=== PATIENT | male | born 1950 | race Caucasian/White ===

== ENCOUNTER 2016-08-09 13:46 | Outpatient (RCR) | payer MEDICARE ==
--- OUTSIDE RECORDS SUMMARY | 2016-06-14 10:06 | XMS REPORT | Continuity of Care Document ---
Author Author [facility] Organization [facility] Address Unknown Phone Unavailable Care Team Providers Care Tray Drier Name Role Phone HILARY SULLIVAN MD PCP Insurance Providers Payer Name Policy Number Subscriber Name Relationship Wps Medicare [id number] Jocelyn Denny 18 Self / Same As Patient Blue Cross [facility] Supp [id number] Jocelyn Denny 20 Self / Same As Patient Advance Directives Directive Response Recorded Date/Time Advance Directives No 07/01/14 8:51am Organ Donor No 07/01/14 8:51am Resuscitation Status Full Code 07/01/14 8:51am Problems Medical Problems Problem Onset Date Status Acute myocardial infarction of anterolateral wall Unknown Active Bronchitis Unknown Active Medications Medication Dose Route Sig Days/Qty Instructions Order Date Discontinued Date Status Lovastatin (Mevacor) 1 Each PO DAILY WITH SUPPER 1 Qty 02/25/14 Discontinued Diltiazem HCl 30 Mg PO THREE TIMES A DAY 1 Qty 02/25/14 02/27/14 Discontinued Glipizide (Glucotrol) 1 Each PO DAILY 1 Qty 02/25/14 Active Metformin HCl (Glucophage) 1 Each PO TWICE A DAY WITH MEALS 1 Qty 02/25 Active Fish Oil 1,000 Mg PO THREE TIMES A DAY 1 Qt02/25/14 Active Atorvastatin Calcium 80 Mg PO BEDTIME 30 Qty 02/27/14 Active Aspirin 81 Mg PO DAILY 30 Qty 02/27/14 Active Clopidogrel Bisulfate 75 Mg PO DAILY 90 Days 02/27/14 Active Levofloxacin 500 Mg PO DAILY@11 5 Days 02/27/14 07/01/14 Discontinued Metoprolol Tartrate 25 Mg PO TWICE A DAY 90 Days 02/27/14 Active Metoprolol Tartrate (Lopressor) 50 Mg PO TWICE A DAY 90 Days 02/27/14 Active Ramipril 20 Mg PO DAILY 90 Days 02/27/14 Active Social History Social History Problem Response Recorded Date/Time Alcohol Use Denies Use 02/26/2014 1:45am Recreational Drug Use No 02/26/2014 1:45am Recent Foreign Travel No 02/26/2014 1:45am Smoking Status Current Everyday Smoker 07/01/2014 8:50am Query Response Start Date Stop Date Smoking Status Current Everyday Smoker Hospital Discharge Instructions No hospital discharge instructions. Plan of Care No plan of care. Functional Status Query Response Date Recorded Patient Orientation Person Place Time Situation July 01, 2014 4:31pm Allergies, Adverse Reactions, Alerts Allergen Type Severity Reaction Status Last Updated No Known Drug Allergies Active 02/25/14 Immunizations Name Given Type Date of Pneumonia Vaccine 02/25/13 Historical Date of Influenza Vaccine 05/06/14 Historical Vital Signs Acute Vital Signs Vital Response Date/Time Temperature (Fahrenheit) 97.5 degrees F (97.6 - 99.5) Temperature (Calculated Celsius) 36.93034 degrees C (36.4 - 37.5) Temperature Source Tympanic Pulse Rate (adult) 74 bpm (60 - 90) Respiratory Rate 16 bpm (12 - 24) O2 Sat by Pulse Oximetry 94 % (88 - 100) Blood Pressure 148/70 mm Hg Pain Pain Intensity 0 Height (Feet) 5 feet Height (Inches) 7.50 inches Height (Calculated Centimeters) 171.309292 cm Weight (Pounds) 197 pounds Weight (Ounces) 0.0 oz Weight (Calculated Grams) 10601.698 gm Weight (Calculated Kilograms) 89.652005 kilograms Height 5 ft 7.5 in Weight 197 lb Body Mass Index 30.4 kg/m^2 Results Laboratory Results Test Name Result Units Flags Reference Collection Date/Time Result Date/ Time Comments Sodium Level 141 MMOL/L 135-145 06/23/2014 2:38pm 06/23/2014 2:59pm Potassium Level 4.0 MMOL/L 3.6-5.0 06/23/2014 2:38pm 06/23/2014 2:59pm Chloride Level 106 MMOL/L 98-107 06/23/2014 2:38pm 06/23/2014 2:59pm Carbon Dioxide Level 27 MMOL/L 21-32 06/23/2014 2:38pm 06/23/2014 2: 59pm Blood Urea Nitrogen 13 MG/DL 7-18 06/23/2014 2:38pm 06/23/2014 2:59pm Creatinine 0.95 MG/DL 0.60-1.30 06/23/2014 2:38pm 06/23/2014 2:59pm BUN/Creatinine Ratio 14 06/23/2014 2:38pm 06/23/2014 2:59pm Estimat Glomerular Filtration Rate > 60 06/23/2014 2:38pm 2013 2:59pm GFR INTERPRETIVE DATA UNITS FOR ESTIMATED GFR (eGFR): mL/min/1.73 M2 REFERENCE RANGE FOR ESTIMATED GFR (eGFR) eGFR NORMAL eGFR >60 MODERATELY DECREASED eGFR 30-59 SEVERLY DECREASED eGFR 15-29 KIDNEY FAILURE <15 (OR DIALYSIS) Glucose Level 75 MG/DL 70-105 06/23/2014 2:38pm 06/23/2014 2:59pm Calcium Level 9.0 MG/DL 8.5-10.1 06/23/2014 2:38pm 06/23/2014 2:59pm White Blood Count 6.6 10^3/uL 4.3-11.0 07/01/2014 7:59am 07/01/2014 8: 09am Red Blood Count 4.15 10^6/uL L 4.35-5.85 07/01/2014 7:59am 07/01/2014 8: 09am Hemoglobin 13.0 G/DL L 13.3-17.7 07/01/2014 7:59am 07/01/2014 8:09am Hematocrit 38 % L 40-54 07/01/2014 7:59am 07/01/2014 8:09am Mean Corpuscular Volume 91 FL 80-99 07/01/2014 7:59am 07/01/2014 8: 09am Mean Corpuscular Hemoglobin 31 PG 25-34 07/01/2014 7:59am 07/01/2014 8: 09am Mean Corpuscular Hemoglobin Concent 35 G/DL 32-36 07/01/2014 7:59am 8:09am Red Cell Distribution Width 12.4 % 10.0-14.5 07/01/2014 7:59am 2013 8:09am Platelet Count 196 10^3/uL 130-400 07/01/2014 7:59am 07/01/2014 8:09am Mean Platelet Volume 9.5 FL 7.4-10.4 07/01/2014 7:59am 07/01/2014 8: 09am Neutrophils (%) (Auto) 73 % 42-75 07/01/2014 7:59am 07/01/2014 8:09am Lymphocytes (%) (Auto) 16 % 12-44 07/01/2014 7:59am 07/01/2014 8:09am Monocytes (%) (Auto) 8 % 0-12 07/01/2014 7:59am 07/01/2014 8:09am Eosinophils (%) (Auto) 3 % 0-10 07/01/2014 7:59am 07/01/2014 8:09am Basophils (%) (Auto) 1 % 0-10 07/01/2014 7:59am 07/01/2014 8:09am Neutrophils # (Auto) 4.3 X 10^3 1.8-7.8 07/01/2014 7:59am 07/01/2014 8: 09am Lymphocytes # (Auto) 0.9 X 10^3 L 1.0-4.0 07/01/2014 7:59am 07/01/2014 8: 09am Monocytes # (Auto) 0.5 X 10^3 0.0-1.0 07/01/2014 7:59am 07/01/2014 8: 09am Eosinophils # (Auto) 0.2 10^3/uL 0.0-0.3 07/01/2014 7:59am 07/01/2014 8 :09am Basophils # (Auto) 0.0 10^3/uL 0.0-0.1 07/01/2014 7:59am 07/01/2014 8: 09am Prothrombin Time 12.0 SEC L 12.2-14.7 07/01/2014 7:59am 07/01/2014 8: 22am INR Comment 0.9 0.8-1.4 07/01/2014 7:59am 07/01/2014 8:22am INTERPRETIVE DATA SUGGESTED THERAPEUTIC RANGE FOR INR'S: VENOUS THROMBOSIS, PULMONARY EMBOLISM, OR PREVENTION OF SYSTEMIC EMBOLISM (EG. IN ATRIAL FIBRILLATION): 2.0 - 3.0 MECHANICAL PROSTHETIC HEART VALVES: 2.5 - 3.5* *NOTE: INR'S UP TO 4.5 MAY BE NECESSARY IN SELECTED GROUPS OF HIGH RISK PATIENTS. [employer] CONSENSUS CONFERENCE ON ANTITHROMBOTIC THERAPY (2000). Activated Partial Thromboplast Time 31 SEC 24-35 07/01/2014 7:59am 8:22am Procedures No known history of procedures. Encounters Encounter Location Date/Time Registered Surgical Day Care Via [facility] 07/01/14 7:42am Registered Clinic Via [facility] 06/23/14 2:27pm
[2016-06-14 10:40] LABS: BASOPHILS % (AUTO) 1 % (0-10); EOSINOPHILS # (AUTO) 0.1 10^3/uL (0.0-0.3); EOSINOPHILS % (AUTO) 2 % (0-10); LYMPHOCYTES # (AUTO) 0.6 X 10^3 (1.0-4.0); LYMPHOCYTES % (AUTO) 11 % (12-44); MEAN CORPUSCULAR HEMOGLOBIN 33 PG (25-34); MEAN CORPUSCULAR HGB CONC 35 G/DL (32-36); MEAN CORPUSCULAR VOLUME 96 FL (80-99); MEAN PLATELET VOLUME 9.3 FL (7.4-10.4); MONOCYTES # (AUTO) 0.4 X 10^3 (0.0-1.0); MONOCYTES % (AUTO) 9 % (0-12); NEUTROPHILS # (AUTO) 3.8 X 10^3 (1.8-7.8); NEUTROPHILS % (AUTO) 77 % (42-75); PLATELET COUNT 232 10^3/uL (130-400); RED BLOOD COUNT 3.66 10^6/uL (4.35-5.85); RED CELL DISTRIBUTION WIDTH 13.1 % (10.0-14.5)
[2016-06-14 11:06] LABS: ALANINE AMINOTRANSFERASE 18 U/L (0-55); ANION GAP 11 MMOL/L (5-14); ASPARTATE AMINO TRANSFERASE 12 U/L (5-34); BILIRUBIN,TOTAL 0.4 MG/DL (0.1-1.0); BLOOD UREA NITROGEN 13 MG/DL (7-18); BUN/CREATININE RATIO 13; CARBON DIOXIDE 18 MMOL/L (21-32); CHLORIDE 108 MMOL/L (98-107); CREATININE SERUM 0.99 MG/DL (0.60-1.30); GFR ESTIMATED > 60; GLUCOSE 250 MG/DL (70-105); LACTATE DEHYDROGENASE 154 U/L (125-220); POTASSIUM 4.1 MMOL/L (3.6-5.0); SODIUM 137 MMOL/L (135-145); TOTAL PROTEIN 6.4 G/DL (6.4-8.2)
[~2016-08-09] VITALS: Ht 171.4 cm; Wt 90.7 kg
[~2016-08-09 13:46] MED LIST: ACETAMINOPHEN 500 MG TAB (TYLENOL) CANCER CTR PO PRN; ALBU90AE IH; AMLO10TA2 PO; ASP81CT PO; ASPI-983 PO; ASPI-999 PO; ATOR80TA PO; ATOR80TA76 PO; CLOP75TA28 PO; CLPD75T PO; DILT30TA30 PO; DOCU-163 PO; DOCU250C11 PO; FISH OIL DR 1,1 EAC1 PO; FLU TRIvalent (5 YOA+) 2016-17 (CANCER CTR) 0.5 ML IM ONE; FLUT16SP22 NS; FLUT1BLS IH; GABA-488 PO; GLIP10TA13 PO; LOSA100T28 PO; LOVA20TA2 PO; LVF500T PO; METF-380 PO; METF1000 PO; METO100T2 PO; METO25TA2 PO; MONT10TA24 PO; MTP50T PO; NS IV 500 ML (CANCER CENTER) IV SCH; OMG1KC PO; POLY17PO6 PO; RMP5C PO; RT-ALBUINH IH; diphenhydrAMINE 25 MG TAB (BENADRYL) CANCER CENTER PO SCH; riTUXimab 500 MG, riTUXimab FOR IV INJ CONC 200 MG in NS (IVPB) CANCER CENTER ONLY 150 ML IV SCH
[2016-08-09 14:12] LABS: BASOPHILS % (AUTO) 1 % (0-10); EOSINOPHILS # (AUTO) 0.2 10^3/uL (0.0-0.3); EOSINOPHILS % (AUTO) 3 % (0-10); LYMPHOCYTES # (AUTO) 0.5 X 10^3 (1.0-4.0); LYMPHOCYTES % (AUTO) 9 % (12-44); MEAN CORPUSCULAR HEMOGLOBIN 34 PG (25-34); MEAN CORPUSCULAR HGB CONC 35 G/DL (32-36); MEAN CORPUSCULAR VOLUME 98 FL (80-99); MEAN PLATELET VOLUME 9.7 FL (7.4-10.4); MONOCYTES # (AUTO) 0.5 X 10^3 (0.0-1.0); MONOCYTES % (AUTO) 9 % (0-12); NEUTROPHILS # (AUTO) 4.3 X 10^3 (1.8-7.8); NEUTROPHILS % (AUTO) 78 % (42-75); PLATELET COUNT 189 10^3/uL (130-400); RED BLOOD COUNT 3.55 10^6/uL (4.35-5.85); RED CELL DISTRIBUTION WIDTH 13.6 % (10.0-14.5); WHITE BLOOD COUNT 5.4 10^3/uL (4.3-11.0)
[2016-08-09 14:44] LABS: ALANINE AMINOTRANSFERASE 22 U/L (0-55); ALBUMIN 4.1 G/DL (3.2-4.5); ANION GAP 11 MMOL/L (5-14); ASPARTATE AMINO TRANSFERASE 14 U/L (5-34); BILIRUBIN,TOTAL 0.6 MG/DL (0.1-1.0); BLOOD UREA NITROGEN 14 MG/DL (7-18); BUN/CREATININE RATIO 12; CARBON DIOXIDE 20 MMOL/L (21-32); CHLORIDE 108 MMOL/L (98-107); CREATININE SERUM 1.17 MG/DL (0.60-1.30); GFR ESTIMATED > 60; GLUCOSE 202 MG/DL (70-105); LACTATE DEHYDROGENASE 181 U/L (125-220); POTASSIUM 4.2 MMOL/L (3.6-5.0); SODIUM 139 MMOL/L (135-145); TOTAL PROTEIN 6.2 G/DL (6.4-8.2)
== END 2016-09-12 | disposition home or self-care (01) ==
LOC: ONC 13:46
PROVIDERS: ATTEND Internal Medicine Hematology & Oncology
DX: Z51.11 Encounter for antineoplastic chemotherapy (principal); C82.13 Follicular lymphoma grade II, intra-abdominal lymph nodes; R16.1 Splenomegaly, not elsewhere classified; F17.210 Nicotine dependence, cigarettes, uncomplicated; Z79.899 Other long term (current) drug therapy; Z23 Encounter for immunization
CPT/HCPCS: 36415; 80053; 83615; 85025; 90471; 96413; 96415; 99213

== ENCOUNTER → 2016-08-12 | Outpatient (CLI) | payer MEDICARE ==
[~2016-08-12] MED LIST changes: -ACETAMINOPHEN 500 MG TAB (TYLENOL) CANCER CTR PO PRN; -FLU TRIvalent (5 YOA+) 2016-17 (CANCER CTR) 0.5 ML IM ONE; -NS IV 500 ML (CANCER CENTER) IV SCH; -diphenhydrAMINE 25 MG TAB (BENADRYL) CANCER CENTER PO SCH; -riTUXimab 500 MG, riTUXimab FOR IV INJ CONC 200 MG in NS (IVPB) CANCER CENTER ONLY 150 ML IV SCH
--- OUTSIDE RECORDS SUMMARY | 2016-08-12 10:26 | XMS REPORT | Continuity of Care Document ---
Author Author [facility] Organization [facility] Address Unknown Phone Unavailable Care Team Providers Care Hydrogen Power Plant Engineer Name Role Phone HILARY SULLIVAN MD PCP Insurance Providers Payer Name Policy Number Subscriber Name Relationship Wps Medicare [id number] Jocelyn Denny 20 Self / Same As Patient Blue Cross [facility] Supp [id number] Jocelyn Denny 20 Self / Same As [...] F (97.6 - 99.5) Temperature (Calculated Celsius) 36.09946 degrees C (36.4 - 37.5) Temperature Source Tympanic Pulse Rate (adult) 74 bpm (60 - 90) Respiratory Rate 16 bpm (12 - 24) O2 Sat by Pulse Oximetry 94 % (88 - 100) Blood Pressure 148/70 mm Hg Pain Pain Intensity 0 Height (Feet) 5 feet Height (Inches) 7.50 inches Height (Calculated Centimeters) 171.020597 cm Weight (Pounds) 197 pounds Weight (Ounces) 0.0 oz Weight (Calculated Grams) 40369.698 gm Weight (Calculated Kilograms) 89.553457 kilograms Height 5 ft 7.5 in Weight [...] SELECTED GROUPS OF HIGH RISK PATIENTS. [employer] CONSENSUS CONFERENCE ON ANTITHROMBOTIC THERAPY (2000). Activated Partial Thromboplast Time 31 SEC 24-35 07/01/2014 7:59am 8:22am Procedures No known history of procedures. Encounters Encounter Location Date/Time Registered Surgical Day Care Via [facility] 07/01/14 7:42am Registered Clinic Via [facility] 06/23/14 2:27pm
--- NOTE | 2016-08-12 12:31 | Diagnostic Imaging Report ---
INDICATION: Dyspnea, followup pneumonia. DISCUSSION: Two views of the chest were obtained, comparison 07/12/2016. Probable right nipple shadow incidentally noted, stable. Stable normal heart size. Underlying COPD is again noted. No focal consolidation or pleural fluid. Old right rib fracture is stable. No acute osseous abnormality. IMPRESSION: 1. No acute cardiopulmonary process identified. Dictated by: Dictated on workstation # [id number]
== END ==
LOC: RAD 10:21
PROVIDERS: ATTEND Nurse Practitioner Family
DX: J30.9 Allergic rhinitis, unspecified (principal); J43.8 Other emphysema; G47.33 Obstructive sleep apnea (adult) (pediatric); G47.34 Idiopathic sleep related nonobstructive alveolar hypoventilation; Z72.0 Tobacco use; J18.9 Pneumonia, unspecified organism
CPT/HCPCS: 71020

== ENCOUNTER → 2016-09-13 | Outpatient (CLI) | payer MEDICARE ==
--- OUTSIDE RECORDS SUMMARY | 2016-09-13 13:31 | XMS REPORT | Continuity of Care Document ---
Author Author [facility] Organization [facility] Address Unknown Phone Unavailable Care Team Providers Care Investment Consultant Name Role Phone HILARY SULLIVAN MD PCP Insurance Providers Payer Name Policy Number Subscriber Name Relationship Wps Medicare [id number] Jocelyn Denny 20 Self / Same As Patient Blue Cross [facility] Supp [id number] Jocelyn Denny 20 Self / Same As [...] F (97.6 - 99.5) Temperature (Calculated Celsius) 36.43789 degrees C (36.4 - 37.5) Temperature Source Tympanic Pulse Rate (adult) 74 bpm (60 - 90) Respiratory Rate 16 bpm (12 - 24) O2 Sat by Pulse Oximetry 94 % (88 - 100) Blood Pressure 148/70 mm Hg Pain Pain Intensity 0 Height (Feet) 5 feet Height (Inches) 7.50 inches Height (Calculated Centimeters) 171.262407 cm Weight (Pounds) 197 pounds Weight (Ounces) 0.0 oz Weight (Calculated Grams) 79738.698 gm Weight (Calculated Kilograms) 89.759491 kilograms Height 5 ft 7.5 in Weight [...] SELECTED GROUPS OF HIGH RISK PATIENTS. [employer] [employer] CONSENSUS CONFERENCE ON ANTITHROMBOTIC THERAPY (2000). Activated Partial Thromboplast Time 31 SEC 24-35 07/01/2014 7:59am 8:22am Procedures No known history of procedures. Encounters Encounter Location Date/Time Registered Surgical Day Care [facility] 07/01/14 7:42am Registered Clinic Via [facility] 06/23/14 2:27pm
== END ==
LOC: RAD 13:27
PROVIDERS: ATTEND Internal Medicine Cardiovascular Disease
DX: I73.9 Peripheral vascular disease, unspecified (principal); M79.89 Other specified soft tissue disorders; I25.10 Atherosclerotic heart disease of native coronary artery without angina pectoris; G47.33 Obstructive sleep apnea (adult) (pediatric); R05 Cough; I65.23 Occlusion and stenosis of bilateral carotid arteries; I10 Essential (primary) hypertension; E78.4 Other hyperlipidemia
CPT/HCPCS: 93923

== ENCOUNTER → 2016-10-15 | Outpatient (CLI) | payer MEDICARE ==
--- OUTSIDE RECORDS SUMMARY | 2016-10-15 08:12 | XMS REPORT | Continuity of Care Document ---
Author Author [facility] Organization [facility] Address Unknown Phone Unavailable Care Team Providers Care Etl Application Developer Name Role Phone HILARY SULLIVAN MD PCP Insurance Providers Payer Name Policy Number Subscriber Name Relationship Wps Medicare [id number] Jocelyn Denny 20 Self / Same As Patient Blue Cross [facility] Supp [id number] Jocelyn Denny 20 Self / Same As [...] F (97.6 - 99.5) Temperature (Calculated Celsius) 36.35495 degrees C (36.4 - 37.5) Temperature Source Tympanic Pulse Rate (adult) 74 bpm (60 - 90) Respiratory Rate 16 bpm (12 - 24) O2 Sat by Pulse Oximetry 94 % (88 - 100) Blood Pressure 148/70 mm Hg Pain Pain Intensity 0 Height (Feet) 5 feet Height (Inches) 7.50 inches Height (Calculated Centimeters) 171.971294 cm Weight (Pounds) 197 pounds Weight (Ounces) 0.0 oz Weight (Calculated Grams) 48372.698 gm Weight (Calculated Kilograms) 89.379699 kilograms Height 5 ft 7.5 in Weight [...] SELECTED GROUPS OF HIGH RISK PATIENTS. [employer] [place] [employer] CONSENSUS CONFERENCE ON ANTITHROMBOTIC THERAPY (2000). Activated Partial Thromboplast Time 31 SEC 24-35 07/01/2014 7:59am 8:22am Procedures No known history of procedures. Encounters Encounter Location Date/Time Registered Surgical Day Care Via [facility] 07/01/14 7:42am Registered Clinic Via [facility] 06/23/14 2:27pm
== END ==
LOC: LAB 08:06
PROVIDERS: ATTEND Otolaryngology Otolaryngology/Facial Plastic Surgery
DX: J42 Unspecified chronic bronchitis (principal); R05 Cough
CPT/HCPCS: 87070; 87077; 87186; 87205

== ENCOUNTER → 2016-10-15 | Outpatient (CLI) | payer MEDICARE ==
--- OUTSIDE RECORDS SUMMARY | 2016-10-15 07:51 | XMS REPORT | Continuity of Care Document ---
Author Author [facility] Organization [facility] Address Unknown Phone Unavailable Care Team Providers Care Assembler Wet Wash Name Role Phone HILARY SULLIVAN MD PCP Insurance Providers Payer Name Policy Number Subscriber Name Relationship Wps Medicare [id number] Jocelyn Denny 20 Self / Same As Patient Blue Cross [facility] Supp [id number] Jocelyn Denny 20 Self / Same As [...] F (97.6 - 99.5) Temperature (Calculated Celsius) 36.89032 degrees C (36.4 - 37.5) Temperature Source Tympanic Pulse Rate (adult) 74 bpm (60 - 90) Respiratory Rate 16 bpm (12 - 24) O2 Sat by Pulse Oximetry 94 % (88 - 100) Blood Pressure 148/70 mm Hg Pain Pain Intensity 0 Height (Feet) 5 feet Height (Inches) 7.50 inches Height (Calculated Centimeters) 171.117686 cm Weight (Pounds) 197 pounds Weight (Ounces) 0.0 oz Weight (Calculated Grams) 20996.698 gm Weight (Calculated Kilograms) 89.523342 kilograms Height 5 ft 7.5 in Weight [...] SELECTED GROUPS OF HIGH RISK PATIENTS. [employer] [place] CONSENSUS CONFERENCE ON ANTITHROMBOTIC THERAPY (2000). Activated Partial Thromboplast Time 31 SEC 24-35 07/01/2014 7:59am 8:22am Procedures No known history of procedures. Encounters Encounter Location Date/Time Registered Surgical Day Care Via [facility] 07/01/14 7:42am Registered Clinic Via [facility] 06/23/14 2:27pm
[2016-10-15 08:24] LABS: ALANINE AMINOTRANSFERASE 14 U/L (0-55); ALBUMIN 3.6 G/DL (3.2-4.5); ANION GAP 12 MMOL/L (5-14); ASPARTATE AMINO TRANSFERASE 12 U/L (5-34); BILIRUBIN,TOTAL 0.6 MG/DL (0.1-1.0); BLOOD UREA NITROGEN 9 MG/DL (7-18); BUN/CREATININE RATIO 9; CALCIUM 8.7 MG/DL (8.5-10.1); CARBON DIOXIDE 23 MMOL/L (21-32); CHLORIDE 105 MMOL/L (98-107); CHOLESTEROL 101 MG/DL (< 200); CREATININE SERUM 1.01 MG/DL (0.60-1.30); DIRECT LDL 51 MG/DL (1-129); GFR ESTIMATED > 60; GLUCOSE 314 MG/DL (70-105); SODIUM 140 MMOL/L (135-145); TOTAL PROTEIN 6.1 G/DL (6.4-8.2); TRIGLYCERIDES 131 MG/DL (<150); VLDL CHOLESTEROL 26 MG/DL (5-40)
== END ==
LOC: LAB 07:47
PROVIDERS: ATTEND Nurse Practitioner Family
DX: E78.4 Other hyperlipidemia (principal); I65.23 Occlusion and stenosis of bilateral carotid arteries; I25.10 Atherosclerotic heart disease of native coronary artery without angina pectoris
CPT/HCPCS: 36415; 80053; 80061

== ENCOUNTER → 2016-10-18 | Outpatient (CLI) | payer MEDICARE ==
--- OUTSIDE RECORDS SUMMARY | 2016-10-18 13:11 | XMS REPORT | Continuity of Care Document ---
Author Author [facility] Organization [facility] Address Unknown Phone Unavailable Care Team Providers Care Log Getter Name Role Phone HILARY SULLIVAN MD PCP Insurance Providers Payer Name Policy Number Subscriber Name Relationship Wps Medicare [id number] Jocelyn Denny 20 Self / Same As Patient Blue Cross [facility] Supp [id number] Jocelyn Denny 20 Self / Same As [...] F (97.6 - 99.5) Temperature (Calculated Celsius) 36.55009 degrees C (36.4 - 37.5) Temperature Source Tympanic Pulse Rate (adult) 74 bpm (60 - 90) Respiratory Rate 16 bpm (12 - 24) O2 Sat by Pulse Oximetry 94 % (88 - 100) Blood Pressure 148/70 mm Hg Pain Pain Intensity 0 Height (Feet) 5 feet Height (Inches) 7.50 inches Height (Calculated Centimeters) 171.492925 cm Weight (Pounds) 197 pounds Weight (Ounces) 0.0 oz Weight (Calculated Grams) 99754.698 gm Weight (Calculated Kilograms) 89.610944 kilograms Height 5 ft 7.5 in Weight [...] Location Date/Time Registered Surgical Day Care Via [facility] 07/01/14 7:42am Registered Clinic Via [facility] 06/23/14 2:27pm
--- NOTE | 2016-10-18 13:22 | Diagnostic Imaging Report ---
CLINICAL INDICATION: Patient with sinus drainage x1 year. No pain. EXAM: Axial maxillofacial CT scan performed without IV contrast with coronal reformations. COMPARISON: None. FINDINGS: PARANASAL SINUSES: FRONTAL: There is mild mucosal thickening. ETHMOID: There are moderate areas of mucosal thickening including consolidation in the left side. MAXILLARY: There is moderate to large amount of mucosal thickening seen bilaterally. SPHENOID: There is mild to moderate mucosal thickening. OTHER PARANASAL SINUS FINDINGS: The ostiomeatal unit regions bilaterally are obstructed. NASAL SEPTUM: There is roughly 2 mm of leftward nasal septal deviation. VISUALIZED TEMPORAL BONE STRUCTURES: Unremarkable. BONY STRUCTURES: Unremarkable. EXTRACRANIAL SOFT TISSUE/ ORBITS: Unremarkable. IMPRESSION: 1: There is diffuse paranasal sinusitis with both maxillary sinuses affected the most. 2: There is mild leftward nasal septal deviation. Dictated by: Dictated on workstation # [id number]
== END ==
LOC: RAD 13:06
PROVIDERS: ATTEND Otolaryngology Otolaryngology/Facial Plastic Surgery
DX: J35.2 Hypertrophy of adenoids (principal); R05 Cough; J34.2 Deviated nasal septum
CPT/HCPCS: 70486

== ENCOUNTER 2016-11-28 08:45 | Outpatient (RCR) | payer MEDICARE ==
--- OUTSIDE RECORDS SUMMARY | 2016-10-03 08:53 | XMS REPORT | Continuity of Care Document ---
Author Author [facility] Organization [facility] Address Unknown Phone Unavailable Care Team Providers Care Catering Assistant Name Role Phone HILARY SULLIVAN MD PCP Insurance Providers Payer Name Policy Number Subscriber Name Relationship Wps Medicare [id number] Jocelyn Denny 20 Self / Same As Patient Blue Cross [facility] Supp [id number] Jocelyn Denny 20 Self / Same As [...] F (97.6 - 99.5) Temperature (Calculated Celsius) 36.10574 degrees C (36.4 - 37.5) Temperature Source Tympanic Pulse Rate (adult) 74 bpm (60 - 90) Respiratory Rate 16 bpm (12 - 24) O2 Sat by Pulse Oximetry 94 % (88 - 100) Blood Pressure 148/70 mm Hg Pain Pain Intensity 0 Height (Feet) 5 feet Height (Inches) 7.50 inches Height (Calculated Centimeters) 171.076851 cm Weight (Pounds) 197 pounds Weight (Ounces) 0.0 oz Weight (Calculated Grams) 13352.698 gm Weight (Calculated Kilograms) 89.165462 kilograms Height 5 ft 7.5 in Weight [...] SELECTED GROUPS OF HIGH RISK PATIENTS. [employer] [place] [employer] CONSENSUS CONFERENCE ON ANTITHROMBOTIC THERAPY (2000). Activated Partial Thromboplast Time 31 SEC 24-35 07/01/2014 7:59am 8:22am Procedures No known history of procedures. Encounters Encounter Location Date/Time Registered Surgical Day Care Via [facility] 07/01/14 7:42am Registered Clinic Via [facility] [address] 06/23/14 2:27pm
[2016-10-03 09:06] LABS: BASOPHILS % (AUTO) 1 % (0-10); EOSINOPHILS # (AUTO) 0.2 10^3/uL (0.0-0.3); EOSINOPHILS % (AUTO) 3 % (0-10); LYMPHOCYTES # (AUTO) 0.6 X 10^3 (1.0-4.0); LYMPHOCYTES % (AUTO) 10 % (12-44); MEAN CORPUSCULAR HEMOGLOBIN 33 PG (25-34); MEAN CORPUSCULAR HGB CONC 34 G/DL (32-36); MEAN CORPUSCULAR VOLUME 95 FL (80-99); MEAN PLATELET VOLUME 9.6 FL (7.4-10.4); MONOCYTES # (AUTO) 0.5 X 10^3 (0.0-1.0); MONOCYTES % (AUTO) 7 % (0-12); NEUTROPHILS % (AUTO) 79 % (42-75); PLATELET COUNT 279 10^3/uL (130-400); RED BLOOD COUNT 3.62 10^6/uL (4.35-5.85); RED CELL DISTRIBUTION WIDTH 13.8 % (10.0-14.5); WHITE BLOOD COUNT 6.3 10^3/uL (4.3-11.0)
[2016-10-03 09:29] LABS: ALANINE AMINOTRANSFERASE 15 U/L (0-55); ALBUMIN 3.8 G/DL (3.2-4.5); ANION GAP 14 MMOL/L (5-14); ASPARTATE AMINO TRANSFERASE 12 U/L (5-34); BILIRUBIN,TOTAL 0.3 MG/DL (0.1-1.0); BLOOD UREA NITROGEN 12 MG/DL (7-18); BUN/CREATININE RATIO 11; CALCIUM 8.4 MG/DL (8.5-10.1); CARBON DIOXIDE 19 MMOL/L (21-32); CHLORIDE 106 MMOL/L (98-107); GFR ESTIMATED > 60; GLUCOSE 325 MG/DL (70-105); LACTATE DEHYDROGENASE 187 U/L (125-220); SODIUM 139 MMOL/L (135-145); TOTAL PROTEIN 6.3 G/DL (6.4-8.2)
[~2016-11-28] VITALS: Ht 171.4 cm; Wt 88.5 kg
[~2016-11-28 08:45] MED LIST changes: +ACETAMINOPHEN 500 MG TAB (TYLENOL) CANCER CTR PO PRN; +NS IV 500 ML (CANCER CENTER) IV SCH; +diphenhydrAMINE 25 MG TAB (BENADRYL) CANCER CENTER PO SCH; +riTUXimab 500 MG, riTUXimab FOR IV INJ CONC 200 MG in NS (IVPB) CANCER CENTER ONLY 150 ML IV SCH
[2016-11-28 09:01] LABS: BASOPHILS # (AUTO) 0.1 10^3/uL (0.0-0.1); BASOPHILS % (AUTO) 1 % (0-10); EOSINOPHILS # (AUTO) 0.2 10^3/uL (0.0-0.3); EOSINOPHILS % (AUTO) 4 % (0-10); LYMPHOCYTES # (AUTO) 0.6 X 10^3 (1.0-4.0); LYMPHOCYTES % (AUTO) 12 % (12-44); MEAN CORPUSCULAR HEMOGLOBIN 32 PG (25-34); MEAN CORPUSCULAR HGB CONC 34 G/DL (32-36); MEAN CORPUSCULAR VOLUME 96 FL (80-99); MEAN PLATELET VOLUME 9.9 FL (7.4-10.4); MONOCYTES # (AUTO) 0.5 X 10^3 (0.0-1.0); MONOCYTES % (AUTO) 10 % (0-12); NEUTROPHILS # (AUTO) 3.7 X 10^3 (1.8-7.8); NEUTROPHILS % (AUTO) 73 % (42-75); PLATELET COUNT 375 10^3/uL (130-400); RED BLOOD COUNT 3.55 10^6/uL (4.35-5.85); RED CELL DISTRIBUTION WIDTH 13.9 % (10.0-14.5); WHITE BLOOD COUNT 5.1 10^3/uL (4.3-11.0)
[2016-11-28 09:28] LABS: ALANINE AMINOTRANSFERASE 21 U/L (0-55); ALBUMIN 3.7 G/DL (3.2-4.5); ANION GAP 10 MMOL/L (5-14); ASPARTATE AMINO TRANSFERASE 16 U/L (5-34); BILIRUBIN,TOTAL 0.2 MG/DL (0.1-1.0); BLOOD UREA NITROGEN 10 MG/DL (7-18); BUN/CREATININE RATIO 11; CARBON DIOXIDE 24 MMOL/L (21-32); CHLORIDE 108 MMOL/L (98-107); CREATININE SERUM 0.87 MG/DL (0.60-1.30); GFR ESTIMATED > 60; GLUCOSE 188 MG/DL (70-105); LACTATE DEHYDROGENASE 171 U/L (125-220); POTASSIUM 3.8 MMOL/L (3.6-5.0); SODIUM 142 MMOL/L (135-145); TOTAL PROTEIN 6.4 G/DL (6.4-8.2)
== END 2017-01-01 | disposition home or self-care (01) ==
LOC: ONC 08:45
PROVIDERS: ATTEND Internal Medicine Hematology & Oncology
DX: Z51.11 Encounter for antineoplastic chemotherapy (principal); C82.13 Follicular lymphoma grade II, intra-abdominal lymph nodes; R16.1 Splenomegaly, not elsewhere classified; F17.210 Nicotine dependence, cigarettes, uncomplicated; Z79.899 Other long term (current) drug therapy
CPT/HCPCS: 36415; 80053; 83615; 85025; 96413; 99213

== ENCOUNTER → 2017-01-17 | Outpatient (CLI) | payer MEDICARE ==
[~2017-01-17] MED LIST changes: -ACETAMINOPHEN 500 MG TAB (TYLENOL) CANCER CTR PO PRN; -NS IV 500 ML (CANCER CENTER) IV SCH; -diphenhydrAMINE 25 MG TAB (BENADRYL) CANCER CENTER PO SCH; -riTUXimab 500 MG, riTUXimab FOR IV INJ CONC 200 MG in NS (IVPB) CANCER CENTER ONLY 150 ML IV SCH
== END ==
LOC: RAD 08:02
PROVIDERS: ATTEND Nurse Practitioner Adult Health
DX: C82.13 Follicular lymphoma grade II, intra-abdominal lymph nodes (principal)

== ENCOUNTER → 2017-01-24 | Outpatient (CLI) | payer MEDICARE ==
--- NOTE | 2017-01-24 13:20 | Diagnostic Imaging Report ---
EXAMINATION: PET-CT TECHNIQUE: Serum glucose level at the time of the study is: 194 mg/dL. 13.3 mCi of FDG was administered intravenously followed by obtaining PET images with corresponding noncontrast CT scan images. The CT scan was performed for anatomic correlation and attenuation correction and was not performed according to the diagnostic protocol of the areas covered. The scan was performed from the head to mid thighs. INDICATION: Followup lymphoma. COMPARISON: CT of 07/11/16. FINDINGS: There is symmetric FDG uptake in the brain. There is no hypermetabolic mass seen in the neck. The chest demonstrates no significant hypermetabolism. There are, however, patchy predominantly interstitial infiltrates in the lower lobes probably related to an atypical pneumonia. In the abdomen, again seen is a 16.5 cm retroperitoneal right suprarenal mass with no significant hypermetabolism suggestive of right adrenal myelolipoma. There is soft tissue thickening around the abdominal aorta at the level of the kidneys with maximum axial measurements of 3.8 x 4.5 cm similar to the prior exam. This is associated with hypermetabolism suggestive of treated tumor with remaining fibrotic tissue. There are nonfocal mild to moderate regions of increased uptake in bowel loops with more intense uptake noted in the bowel loops anteriorly in the pelvis. This is not associated with a convincing soft tissue mass on the localizer CT scan and is likely physiologic. Similarly physiologic expected excretion of the radiotracer concentrated in the urinary bladder is seen. Some of the activity projecting over the left lateral muscle wall appears to relate to misregistration artifact of colonic activity with no convincing intramuscular pathologic FDG uptake. No hypermetabolic enlarged lymph node or mass is seen. The spleen is normal in size with no hypermetabolism. IMPRESSION: 1. No suspicious hypermetabolic mass is seen. 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 2. Interstitial thickening more prominent in the lung bases is probably related to atypical pneumonia. Dictated by: Dictated on workstation # [id number]
== END ==
LOC: RAD 09:48
PROVIDERS: ATTEND Nurse Practitioner Adult Health
DX: J84.89 Other specified interstitial pulmonary diseases (principal); C82.13 Follicular lymphoma grade II, intra-abdominal lymph nodes

== ENCOUNTER → 2017-02-02 | Outpatient (CLI) | payer MEDICARE ==
--- NOTE | 2017-02-02 17:01 | Diagnostic Imaging Report ---
PA and lateral views of the chest. COMPARISON: 08/12/2016. INDICATION: Cough. FINDINGS: There is minimal atelectasis in the left lung base. Slightly prominent chronic-appearing interstitial thickening is seen in the mid and lower lung zones. The heart size is normal. No effusion or pneumothorax. The mediastinum and taina appear unremarkable. IMPRESSION: Minimal left basilar atelectasis. Dictated by: Dictated on workstation # [id number]
== END ==
LOC: RAD 10:16
PROVIDERS: ATTEND Nurse Practitioner Adult Health
DX: R05 Cough (principal)
CPT/HCPCS: 71020

== ENCOUNTER 2017-03-03 09:12 | Outpatient (CLI) | payer MEDICARE ==
[~2017-03-03] VITALS: Ht 170.2 cm; Wt 84.5 kg
[2017-03-03] MEDS ORDERED: DOCU100T7 PO (09:28)
[2017-03-03] MEDS ORDERED: FLUT9.9S NS (09:28)
[2017-03-03 09:33] VITALS: BP 141/84
[2017-03-03 10:12] LABS: BASOPHILS % (AUTO) 1 % (0-10); EOSINOPHILS # (AUTO) 0.3 10^3/uL (0.0-0.3); EOSINOPHILS % (AUTO) 5 % (0-10); LYMPHOCYTES # (AUTO) 0.8 X 10^3 (1.0-4.0); LYMPHOCYTES % (AUTO) 12 % (12-44); MEAN CORPUSCULAR HEMOGLOBIN 32 PG (25-34); MEAN CORPUSCULAR HGB CONC 34 G/DL (32-36); MEAN CORPUSCULAR VOLUME 95 FL (80-99); MEAN PLATELET VOLUME 9.6 FL (7.4-10.4); MONOCYTES # (AUTO) 0.5 X 10^3 (0.0-1.0); MONOCYTES % (AUTO) 7 % (0-12); NEUTROPHILS # (AUTO) 5.4 X 10^3 (1.8-7.8); NEUTROPHILS % (AUTO) 75 % (42-75); PLATELET COUNT 249 10^3/uL (130-400); RED BLOOD COUNT 3.49 10^6/uL (4.35-5.85); RED CELL DISTRIBUTION WIDTH 15.9 % (10.0-14.5); WHITE BLOOD COUNT 7.1 10^3/uL (4.3-11.0)
[2017-03-03 10:30] LABS: ANION GAP 10 MMOL/L (5-14); BLOOD UREA NITROGEN 13 MG/DL (7-18); BUN/CREATININE RATIO 16; CALCIUM 9.1 MG/DL (8.5-10.1); CARBON DIOXIDE 20 MMOL/L (21-32); CHLORIDE 107 MMOL/L (98-107); CREATININE SERUM 0.83 MG/DL (0.60-1.30); GFR ESTIMATED > 60; GLUCOSE 187 MG/DL (70-105); POTASSIUM 4.2 MMOL/L (3.6-5.0); SODIUM 137 MMOL/L (135-145)
== END 2017-03-03 11:37 | disposition home or self-care (01) ==
LOC: PREOP 09:12
PROVIDERS: ATTEND Otolaryngology Otolaryngology/Facial Plastic Surgery
DX: Z01.812 Encounter for preprocedural laboratory examination (principal); Z11.2 Encounter for screening for other bacterial diseases; J35.3 Hypertrophy of tonsils with hypertrophy of adenoids
CPT/HCPCS: 36415; 80048; 85025; 87081; 93005

== ENCOUNTER 2017-03-10 08:00 | Day surgery (SDC) | payer MEDICARE ==
[~2017-03-10] VITALS: Ht 170.2 cm; Wt 84.5 kg
[~2017-03-10 08:00] MED LIST changes: +DOCU100T7 PO; +FLUT9.9S NS
[2017-03-10] MEDS ORDERED: AMPICILLIN/SULBACTAM 1.5 GM/NS 50 ML IVPB IV ONE ×2 (08:30)
[2017-03-10 08:41] VITALS: BP 139/77
[2017-03-10] MEDS ORDERED: RT-ALBUTEROL SULF 2.5 MG/3 ML PRE-MIX VIAL INH ONE (08:45)
[2017-03-10] MEDS: LACTATED RINGERS 1,000 ML IV PRN ×2 (09:00→10:17)
[2017-03-10] MEDS ORDERED: fentaNYL INJECTION 100 MCG/2 ML AMP ONE (09:00)
[2017-03-10] MEDS ORDERED: MIDAZOLAM 2 MG/2 ML (VERSED) VIAL ONE (09:01)
[2017-03-10] MEDS ORDERED: ONDANSETRON 4 MG/2 ML (SDV) Z0FRAN ONE ×2 (09:03→10:41)
[2017-03-10] MEDS ORDERED: DEXAMETHASONE PF 10 MG/ML (DECADRON) VIAL ONE (09:03)
[2017-03-10] MEDS ORDERED: ROCURONIUM 50 MG/5 ML (ZEMURON) VIAL IV ONE (09:03)
[2017-03-10] MEDS ORDERED: SEVOFLURANE (ULTANE) 15 ML INHAL SOLN ONE ×5 (09:05→10:29)
[2017-03-10] MEDS ORDERED: LIDOCAINE/EPI 1%-1:200,000 (XYLOCAINE) 30 ML VIAL ONE (09:06)
[2017-03-10] MEDS ORDERED: LIDOCAINE PF 2% 5 ML (XYLOCAINE) VIAL ONE (09:06)
[2017-03-10] MEDS ORDERED: BSS 15 ML ONE (09:06)
[2017-03-10] MEDS ORDERED: COCAINE HCL 4% 2 ML SYR ONE (09:06)
[2017-03-10] MEDS ORDERED: PHENYLEPHRINE 0.5% NASAL SPR (NEO-SYNEPHRINE) REG ONE (09:06)
[2017-03-10] MEDS ORDERED: RT-ALBUTEROL SULF 2.5 MG/3 ML PRE-MIX VIAL ONE (09:11)
--- NOTE | 2017-03-10 09:20 | Progress Note-Pre Operative ---
Pre-Operative Progress Note H&P Reviewed The H&P was reviewed, patient examined and no changes noted. Date Seen by Provider: Mar 10, 2017 Time Seen by Provider: 09:00 Date H&P Reviewed: Mar 10, 2017 Time H&P Reviewed: 09:00 Pre-Operative Diagnosis: Bilat Chronic REcurrent Sinus Disease, Deviated Septum SAHIL DEMPSEY MD Mar 10, 2017 9:20 am
[2017-03-10] MEDS ORDERED: LACTATED RINGERS 1,000 ML IV ONE (10:29)
[2017-03-10] MEDS ORDERED: NEOSTIGMINE (BLOXIVERZ ) 1 MG/1ML 10 ML VIAL ONE (10:30)
[2017-03-10] MEDS ORDERED: GLYCOPYRROLATE 0.2 MG/ML (ROBINUL) 2 ML VIAL ONE (10:30)
[2017-03-10] MEDS ORDERED: D5 1/2 NS W/KCL 20 MEQ/L 1,000 ML IV SCH (10:40)
--- NOTE | 2017-03-10 10:40 | Progress Note-Post Operative ---
Post-Operative Progess Note Surgeon (s)/Feeder Catcher Tobacco (s) Surgeon SAHIL DEMPSEY MD Feeder Catcher Tobacco n/a Pre-Operative Diagnosis Bilat Chronic REcurrent Sinus Disease, Deviated Septum Post-Operative Diagnosis same Post-Op Procedure Note Date of Procedure: Mar 10, 2017 Name of Procedure Performed: Bilt ESS, Bilat Reduction of the INferior Turbinates Description & Findings Description and Findings: n/a Anesthesia Type get Estimated Blood Loss minimal Packing none. Specimen(s) collected/removed Bilt Chronic Sinus Disease, Cultures-right maxillary sinus-aerobic, anaerobic and fungal SAHIL DEMPSEY MD Mar 10, 2017 10:40 am
[2017-03-10] MEDS ORDERED: morphine INJ 10 MG/ML 1ML (SYR OR VIAL) ONE (10:41)
[2017-03-10] MEDS ORDERED: ACETAMINOPHEN 325 MG TABLET/CAPLET (TYLENOL) PO PRN (10:45)
[2017-03-10] MEDS ORDERED: HYDROcodone/APAP 5 MG/325 MG (LORTAB) TAB PO PRN (10:45)
[2017-03-10] MEDS ORDERED: predniSONE 20 MG TAB PO ONE (10:45)
[2017-03-10] MEDS ORDERED: PROMETHAZINE INJ 25 MG/ML (PHENERGAN) AMP IVP PRN (10:45)
[2017-03-10 12:00] VITALS: BP 140/72
[2017-03-10 12:30] VITALS: BP 145/75
[2017-03-10 13:00] VITALS: BP 140/69
[2017-03-10 13:15] VITALS: BP 140/69
== END 2017-03-10 13:15 | disposition home or self-care (01) ==
LOC: SDC 08:00
PROVIDERS: ATTEND Otolaryngology Otolaryngology/Facial Plastic Surgery
DX: J32.2 Chronic ethmoidal sinusitis (principal); J32.0 Chronic maxillary sinusitis; J32.1 Chronic frontal sinusitis; J32.3 Chronic sphenoidal sinusitis; E11.43 Type 2 diabetes mellitus with diabetic autonomic (poly)neuropathy; I10 Essential (primary) hypertension; I25.10 Atherosclerotic heart disease of native coronary artery without angina pectoris; F17.210 Nicotine dependence, cigarettes, uncomplicated; G47.33 Obstructive sleep apnea (adult) (pediatric); J44.9 Chronic obstructive pulmonary disease, unspecified; Z95.5 Presence of coronary angioplasty implant and graft; Z79.84 Long term (current) use of oral hypoglycemic drugs; Z79.899 Other long term (current) drug therapy
CPT/HCPCS: 82962; 87070; 87075; 87101; 87205; 94640

== ENCOUNTER → 2017-03-31 | Outpatient (CLI) | payer MEDICARE | LOC: LAB 13:02 | PROVIDERS: ATTEND Nurse Practitioner Family | DX: R05 Cough (principal) | CPT/HCPCS: 87070; 87077; 87186; 87205 ==

== ENCOUNTER 2017-04-12 12:40 | Outpatient (RCR) | payer MEDICARE ==
[2017-04-03 12:50] VITALS: BP 133/79
[2017-04-03] MEDS: CATHETER FLUSH 10 ML SYR IV PRN ×2 (14:44→15:15)
[2017-04-03] MEDS: CEFEPIME 2 GM/NS 50 ML IVPB IV SCH ×2 (14:45)
[2017-04-04 12:50] VITALS: BP 128/76
[2017-04-04] MEDS: CATHETER FLUSH 10 ML SYR IV PRN ×2 (12:50→13:23)
[2017-04-04] MEDS: CEFEPIME 2 GM/NS 50 ML IVPB IV SCH ×2 (12:55)
[2017-04-05 13:00] VITALS: BP_SYST 0; BP_SYST 158; BP_DIAS 0; BP_DIAS 100
[2017-04-05] MEDS: CEFEPIME 2 GM/NS 50 ML IVPB IV SCH ×2 (13:06)
[2017-04-05] MEDS: CATHETER FLUSH 10 ML SYR IV PRN ×2 (13:06→13:35)
[2017-04-06 13:57] VITALS: BP 158/80
[2017-04-06] MEDS: CEFEPIME 2 GM/NS 50 ML IVPB IV SCH ×2 (13:58)
[2017-04-07] MEDS: CATHETER FLUSH 10 ML SYR IV PRN ×2 (12:55→13:27)
[2017-04-07] MEDS: CEFEPIME 2 GM/NS 50 ML IVPB IV SCH ×2 (12:56)
[2017-04-07 13:30] VITALS: BP 152/81
[2017-04-08] MEDS: CEFEPIME 2 GM/NS 50 ML IVPB IV SCH ×2 (13:19)
[2017-04-08 13:53] VITALS: BP 163/75
[2017-04-09 13:00] VITALS: BP 170/82
[2017-04-09] MEDS: CEFEPIME 2 GM/NS 50 ML IVPB IV SCH ×2 (13:12)
[2017-04-10] MEDS: CEFEPIME 2 GM/NS 50 ML IVPB IV SCH ×2 (13:01)
[2017-04-10] MEDS: CATHETER FLUSH 10 ML SYR IV PRN (13:01)
[2017-04-10 13:10] VITALS: BP 171/77
[2017-04-11] MEDS: CATHETER FLUSH 10 ML SYR IV PRN (13:47)
[2017-04-11] MEDS: CEFEPIME 2 GM/NS 50 ML IVPB IV SCH ×2 (13:47)
[2017-04-11 13:48] VITALS: BP 176/86
[~2017-04-12] VITALS: Ht 171.4 cm; Wt 81.6 kg
[~2017-04-12 12:40] MED LIST changes: +CEFEPIME 2 GM/NS 50 ML IVPB IV SCH
[2017-04-12] MEDS: CEFEPIME 2 GM/NS 50 ML IVPB IV SCH ×2 (12:52)
[2017-04-12] MEDS: CATHETER FLUSH 10 ML SYR IV PRN (12:53)
[2017-04-12 13:34] VITALS: BP 165/79
== END 2017-05-06 | disposition home or self-care (01) ==
LOC: 4TH RCR 12:40
PROVIDERS: ATTEND Otolaryngology Otolaryngology/Facial Plastic Surgery
DX: J32.9 Chronic sinusitis, unspecified (principal); J40 Bronchitis, not specified as acute or chronic; Z45.2 Encounter for adjustment and management of vascular access device
CPT/HCPCS: 36569; 71010; 76937; 96365

== ENCOUNTER 2017-04-13 08:00 | Outpatient (RCR) | payer MEDICARE ==
[~2017-04-13 08:00] MED LIST changes: -CEFEPIME 2 GM/NS 50 ML IVPB IV SCH
== END 2017-04-13 09:11 | disposition home or self-care (01) ==
LOC: LAB 08:00 → EDSTATUS 05-03 11:08
PROVIDERS: ATTEND Otolaryngology Otolaryngology/Facial Plastic Surgery
DX: R05 Cough (principal); R09.81 Nasal congestion
CPT/HCPCS: 87070; 87205

== ENCOUNTER 2017-04-26 09:05 | Outpatient (RCR) | payer MEDICARE ==
[2017-02-02 09:16] LABS: BASOPHILS % (AUTO) 0 % (0-10); EOSINOPHILS # (AUTO) 0.4 10^3/uL (0.0-0.3); EOSINOPHILS % (AUTO) 4 % (0-10); LYMPHOCYTES # (AUTO) 0.8 X 10^3 (1.0-4.0); LYMPHOCYTES % (AUTO) 7 % (12-44); MEAN CORPUSCULAR HEMOGLOBIN 32 PG (25-34); MEAN CORPUSCULAR HGB CONC 35 G/DL (32-36); MEAN CORPUSCULAR VOLUME 93 FL (80-99); MEAN PLATELET VOLUME 8.7 FL (7.4-10.4); MONOCYTES # (AUTO) 0.8 X 10^3 (0.0-1.0); MONOCYTES % (AUTO) 7 % (0-12); NEUTROPHILS % (AUTO) 82 % (42-75); PLATELET COUNT 363 10^3/uL (130-400); RED BLOOD COUNT 3.45 10^6/uL (4.35-5.85); RED CELL DISTRIBUTION WIDTH 14.1 % (10.0-14.5)
[2017-02-02 10:17] LABS: ALANINE AMINOTRANSFERASE 17 U/L (0-55); ALBUMIN 3.4 GM/DL (3.2-4.5); ANION GAP 12 MMOL/L (5-14); ASPARTATE AMINO TRANSFERASE 15 U/L (5-34); BILIRUBIN,TOTAL 0.5 MG/DL (0.1-1.0); BLOOD UREA NITROGEN 9 MG/DL (7-18); BUN/CREATININE RATIO 10; CALCIUM 8.9 MG/DL (8.5-10.1); CARBON DIOXIDE 22 MMOL/L (21-32); CHLORIDE 104 MMOL/L (98-107); GFR ESTIMATED > 60; GLUCOSE 279 MG/DL (70-105); LACTATE DEHYDROGENASE 184 U/L (125-220); POTASSIUM 4.1 MMOL/L (3.6-5.0); SODIUM 138 MMOL/L (135-145); TOTAL PROTEIN 6.4 GM/DL (6.4-8.2)
[2017-02-03 03:38] LABS: IMMUNOGLOBULIN IGA 121 mg/dL (71-263); IMMUNOGLOBULIN IGG 625 mg/dL (672-1680)
[2017-02-03 09:28] LABS: IMMUNOGLOBULIN IGM 15 mg/dL (47-209)
[~2017-04-26 09:05] MED LIST changes: +ACETAMINOPHEN 500 MG TAB (TYLENOL) CANCER CTR PO PRN; +NS IV 500 ML (CANCER CENTER) IV SCH; +diphenhydrAMINE 25 MG TAB (BENADRYL) CANCER CENTER PO SCH; +riTUXimab 500 MG, riTUXimab FOR IV INJ CONC 200 MG in NS (IVPB) CANCER CENTER ONLY 150 ML IV SCH
[2017-04-26 09:30] LABS: BASOPHILS % (AUTO) 1 % (0-10); EOSINOPHILS # (AUTO) 0.3 10^3/uL (0.0-0.3); EOSINOPHILS % (AUTO) 6 % (0-10); LYMPHOCYTES # (AUTO) 0.7 X 10^3 (1.0-4.0); LYMPHOCYTES % (AUTO) 14 % (12-44); MEAN CORPUSCULAR HEMOGLOBIN 33 PG (25-34); MEAN CORPUSCULAR HGB CONC 34 G/DL (32-36); MEAN CORPUSCULAR VOLUME 97 FL (80-99); MEAN PLATELET VOLUME 9.2 FL (7.4-10.4); MONOCYTES # (AUTO) 0.5 X 10^3 (0.0-1.0); MONOCYTES % (AUTO) 9 % (0-12); NEUTROPHILS # (AUTO) 3.8 X 10^3 (1.8-7.8); NEUTROPHILS % (AUTO) 71 % (42-75); PLATELET COUNT 206 10^3/uL (130-400); RED BLOOD COUNT 3.69 10^6/uL (4.35-5.85); RED CELL DISTRIBUTION WIDTH 15.4 % (10.0-14.5); WHITE BLOOD COUNT 5.4 10^3/uL (4.3-11.0)
[2017-04-26 10:10] LABS: ALANINE AMINOTRANSFERASE 23 U/L (0-55); ALBUMIN 3.8 GM/DL (3.2-4.5); ANION GAP 8 MMOL/L (5-14); ASPARTATE AMINO TRANSFERASE 15 U/L (5-34); BILIRUBIN,TOTAL 0.4 MG/DL (0.1-1.0); BLOOD UREA NITROGEN 10 MG/DL (7-18); BUN/CREATININE RATIO 12; CALCIUM 8.9 MG/DL (8.5-10.1); CARBON DIOXIDE 24 MMOL/L (21-32); CHLORIDE 107 MMOL/L (98-107); CREATININE SERUM 0.84 MG/DL (0.60-1.30); GFR ESTIMATED > 60; GLUCOSE 189 MG/DL (70-105); LACTATE DEHYDROGENASE 172 U/L (125-220); POTASSIUM 3.9 MMOL/L (3.6-5.0); SODIUM 139 MMOL/L (135-145); TOTAL PROTEIN 6.2 GM/DL (6.4-8.2)
== END 2017-05-03 | disposition home or self-care (01) ==
LOC: ONC 09:05
PROVIDERS: ATTEND Internal Medicine Hematology & Oncology
DX: C82.13 Follicular lymphoma grade II, intra-abdominal lymph nodes (principal); R16.1 Splenomegaly, not elsewhere classified; R05 Cough; F17.210 Nicotine dependence, cigarettes, uncomplicated; Z79.899 Other long term (current) drug therapy
CPT/HCPCS: 36415; 80053; 82784; 83615; 85025; 99213

== ENCOUNTER → 2017-04-26 | Outpatient (CLI) | payer MEDICARE | LOC: LAB 09:32 | PROVIDERS: ATTEND Family Medicine | DX: E08.00 Diabetes mellitus due to underlying condition with hyperosmolarity without nonketotic hyperglycemic-hyperosmolar coma (NKHHC) (principal) | CPT/HCPCS: 36415; 83036 ==

== ENCOUNTER → 2017-05-16 | Outpatient (CLI) | payer MEDICARE ==
[~2017-05-16] MED LIST changes: -ACETAMINOPHEN 500 MG TAB (TYLENOL) CANCER CTR PO PRN; +CATHETER FLUSH 10 ML SYR IV PRN; -NS IV 500 ML (CANCER CENTER) IV SCH; +REGADENOSON 0.4 MG/5 ML SYR (LEXISCAN) IV ONE; -diphenhydrAMINE 25 MG TAB (BENADRYL) CANCER CENTER PO SCH; -riTUXimab 500 MG, riTUXimab FOR IV INJ CONC 200 MG in NS (IVPB) CANCER CENTER ONLY 150 ML IV SCH
[2017-05-16 09:17] LABS: BASOPHILS % (AUTO) 1 % (0-10); EOSINOPHILS # (AUTO) 0.2 10^3/uL (0.0-0.3); EOSINOPHILS % (AUTO) 3 % (0-10); LYMPHOCYTES # (AUTO) 0.8 X 10^3 (1.0-4.0); LYMPHOCYTES % (AUTO) 14 % (12-44); MEAN CORPUSCULAR HEMOGLOBIN 33 PG (25-34); MEAN CORPUSCULAR HGB CONC 34 G/DL (32-36); MEAN CORPUSCULAR VOLUME 96 FL (80-99); MEAN PLATELET VOLUME 9.5 FL (7.4-10.4); MONOCYTES # (AUTO) 0.4 X 10^3 (0.0-1.0); MONOCYTES % (AUTO) 8 % (0-12); NEUTROPHILS # (AUTO) 4.1 X 10^3 (1.8-7.8); NEUTROPHILS % (AUTO) 75 % (42-75); PLATELET COUNT 224 10^3/uL (130-400); RED BLOOD COUNT 3.67 10^6/uL (4.35-5.85); RED CELL DISTRIBUTION WIDTH 13.5 % (10.0-14.5); WHITE BLOOD COUNT 5.4 10^3/uL (4.3-11.0)
[2017-05-16 09:28] VITALS: BP 145/69
[2017-05-16 09:33] VITALS: BP 121/73
[2017-05-16 09:35] VITALS: BP 154/69
[2017-05-16 09:43] LABS: ERYTHROCYTE SEDIMENTATION RATE 23 MM/HR (0-30)
[2017-05-16 09:44] LABS: ALANINE AMINOTRANSFERASE 21 U/L (0-55); ALBUMIN 3.9 GM/DL (3.2-4.5); ANION GAP 9 MMOL/L (5-14); ASPARTATE AMINO TRANSFERASE 15 U/L (5-34); BILIRUBIN,TOTAL 0.4 MG/DL (0.1-1.0); BLOOD UREA NITROGEN 12 MG/DL (7-18); BUN/CREATININE RATIO 14; CALCIUM 9.1 MG/DL (8.5-10.1); CARBON DIOXIDE 23 MMOL/L (21-32); CHLORIDE 109 MMOL/L (98-107); CREATININE SERUM 0.83 MG/DL (0.60-1.30); GFR ESTIMATED > 60; GLUCOSE 168 MG/DL (70-105); MAGNESIUM 1.6 MG/DL (1.8-2.4); SODIUM 141 MMOL/L (135-145); TOTAL PROTEIN 6.6 GM/DL (6.4-8.2)
[2017-05-16 10:04] LABS: THYROID STIMULATING HORMONE 1.52 UIU/ML (0.35-4.94)
--- NOTE | 2017-05-17 08:04 | STRESS TEST ---
DATE OF SERVICE: 05/16/2017 PROCEDURE: Resting and post regadenoson technetium-99m Tetrofosmin SPECT CT imaging. ORDERING PHYSICIAN: Dr. Pandey. PRIMARY PHYSICIAN: Dr. Allen. CLINICAL DIAGNOSES: Coronary artery disease, hyperlipidemia. DESCRIPTION: Baseline images were carried out after injection of 10.68 mCi of technetium-99m Tetrofosmin. This was followed by 0.4 mg regadenoson and 29.8 mCi of technetium-99m Tetrofosmin for stress imaging. The electrocardiogram showed sinus rhythm at baseline and did not change significantly with the regadenoson infusion. Overall, the patient tolerated the procedure well. He did have some shortness of breath and coughing following regadenoson infusion, which resolved in a few minutes. Review of images at rest and following stress indicates an inferoapical perfusion defect that is fixed. The defect is relatively small. Gated images show inferoapical akinesis. Left ventricular ejection fraction is calculated to be 64%. CONCLUSIONS: 1. This study is indicative of a relatively small inferoapical myocardial infarction without significant ischemia. 2. Inferoapical akinesis. 3. Left ventricular ejection fraction is calculated to be 64%. Job ID: [id number] DocumentID: [id number] Dictated Date: 05/16/2017 16:54:23 Admissions Supervisor Date: 05/17/2017 01:10:56 Dictated By: TONIA PANDEY MD, MA, FACP, FACC,
== END ==
LOC: CARD 07:53
PROVIDERS: ATTEND Internal Medicine Cardiovascular Disease
DX: I25.10 Atherosclerotic heart disease of native coronary artery without angina pectoris (principal); I65.23 Occlusion and stenosis of bilateral carotid arteries; J43.8 Other emphysema; E78.4 Other hyperlipidemia; C82.13 Follicular lymphoma grade II, intra-abdominal lymph nodes; G47.33 Obstructive sleep apnea (adult) (pediatric)
CPT/HCPCS: 36415; 78452; 80053; 83735; 84443; 85025; 85652; 93017

== ENCOUNTER → 2017-06-02 | Outpatient (CLI) | payer MEDICARE ==
[~2017-06-02] MED LIST changes: -CATHETER FLUSH 10 ML SYR IV PRN; -REGADENOSON 0.4 MG/5 ML SYR (LEXISCAN) IV ONE
== END ==
LOC: CARD 12:30
PROVIDERS: ATTEND Internal Medicine Cardiovascular Disease
DX: I25.10 Atherosclerotic heart disease of native coronary artery without angina pectoris (principal); I65.23 Occlusion and stenosis of bilateral carotid arteries; J43.8 Other emphysema; E78.4 Other hyperlipidemia; C82.13 Follicular lymphoma grade II, intra-abdominal lymph nodes; G47.33 Obstructive sleep apnea (adult) (pediatric)
CPT/HCPCS: 93225; 93226; 93306

== ENCOUNTER → 2017-07-18 | Outpatient (CLI) | payer MEDICARE ==
[~2017-07-18] MED LIST changes: +BARIUM SUSPENSION 2.1% (VANILLA SILQ) 450 ML PO ONE; +IOHEXOL 350 MG/ML 100 ML (OMNIPAQUE 350) VIAL IV ONE; +METO100T12 PO; -METO100T2 PO; +NS 100 ML (IVPB) BAG IV ONE
--- NOTE | 2017-07-18 10:52 | Diagnostic Imaging Report ---
INDICATION: Lymphoma. COMPARISON: 12/21/2015 as well as correlated with the more recent chest CT performed on 07/11/2016. FINDINGS: CT NECK: Lobular thickening of the bilateral maxillary sinus philippe has progressed from the prior exam. The average tissue thickening bilaterally is about 7-8 mm. There are postsurgical changes to the medial maxillary philippe and partial ethmoidectomies. The residual ethmoid air cells reveal membrane thickening, progressed from the prior exam. The left frontal sinus is only partially visualized and at least hypoplastic. The caudal right frontal reveals some membrane thickening. There is no mastoid effusion. The sphenoids are clear but hypoplastic. There are no pathological appearing cervical lymph nodes. No fluid collection or abscess. The parotid, submandibular, and thyroid glands are stable. The prevertebral and retropharyngeal spaces are unremarkable. CT CHEST: There is no axillary, hilar, or mediastinal lymphadenopathy. There is resolution of the right middle and lower lobe alejandra-fissural infiltrates present on the prior exam. The lungs are clear today. No lung mass. No thoracic effusion or chest wall lesion. CT ABDOMEN/PELVIS: The large fatty and soft tissue right suprarenal retroperitoneal mass shows peripheral encapsulation and measures 16 cm x 15 cm axially, consistent with a myolipoma and unchanged. The left adrenal is negative. Ill-defined soft tissue infiltration periaortic retroperitoneal is present at the level of the SMA takeoff. This process measures in aggregate 5.4 transverse x 2.9 cm AP, unchanged from the prior exam. The tissue extends caudally to terminate just above the aortic bifurcation, unchanged. The nondilated left kidney remains somewhat hypodense and hypo-enhanced when compared to the unobstructed right. This is unchanged. No discrete or measurable renal infiltration or hydronephrosis. The spleen is nonfocal and normal in size. The liver appears intrinsically unremarkable. The gallbladder is negative. The pancreas itself is unremarkable. The prostate, seminal vesicles, and urinary bladder are unremarkable. The ilioinguinal chains appear unremarkable. No abnormal tissue along the pelvic sidewalls. There is no suspicious osseous uptake. IMPRESSION: CT NECK: No lymphadenopathy or suspicious mass. CT CHEST: Resolution of right lung infiltrate with no thoracic adenopathy, effusion, or acute abnormality. CT ABDOMEN: 1. 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 2. Abnormal soft tissue infiltration retroperitoneum/periaortic, identical in appearance to the prior exam. No mesenteric mass. Chronic poor functioning of the unobstructed left kidney. No ascites, bowel obstruction, biliary dilatation, or adverse change. CT PELVIS: The pelvic lymph node stations are normal. No pelvic mass, ascites, or fluid collection. Dictated by: Dictated on workstation # [id number]
== END ==
LOC: RAD 08:20
PROVIDERS: ATTEND Internal Medicine Hematology & Oncology
DX: R19.07 Generalized intra-abdominal and pelvic swelling, mass and lump (principal); C82.13 Follicular lymphoma grade II, intra-abdominal lymph nodes
CPT/HCPCS: 70491; 71260; 74178

== ENCOUNTER 2017-07-26 09:04 | Outpatient (RCR) | payer MEDICARE ==
[2017-07-18 08:17] LABS: BASOPHILS % (AUTO) 1 % (0-10); EOSINOPHILS # (AUTO) 0.2 10^3/uL (0.0-0.3); EOSINOPHILS % (AUTO) 4 % (0-10); HEMATOCRIT 36 % (40-54); HEMOGLOBIN 12.6 G/DL (13.3-17.7); LYMPHOCYTES # (AUTO) 0.9 X 10^3 (1.0-4.0); LYMPHOCYTES % (AUTO) 16 % (12-44); MEAN CORPUSCULAR HEMOGLOBIN 33 PG (25-34); MEAN CORPUSCULAR HGB CONC 35 G/DL (32-36); MEAN CORPUSCULAR VOLUME 94 FL (80-99); MEAN PLATELET VOLUME 9.8 FL (7.4-10.4); MONOCYTES # (AUTO) 0.5 X 10^3 (0.0-1.0); MONOCYTES % (AUTO) 9 % (0-12); NEUTROPHILS % (AUTO) 70 % (42-75); PLATELET COUNT 202 10^3/uL (130-400); RED BLOOD COUNT 3.86 10^6/uL (4.35-5.85); WHITE BLOOD COUNT 5.6 10^3/uL (4.3-11.0)
[2017-07-18 08:36] LABS: ALANINE AMINOTRANSFERASE 19 U/L (0-55); ALBUMIN 3.9 GM/DL (3.2-4.5); ALKALINE PHOSPHATASE 77 U/L (40-136); BILIRUBIN,TOTAL 0.4 MG/DL (0.1-1.0); BUN/CREATININE RATIO 11; CARBON DIOXIDE 23 MMOL/L (21-32); CHLORIDE 105 MMOL/L (98-107); CREATININE SERUM 0.85 MG/DL (0.60-1.30); GFR ESTIMATED > 60; GLUCOSE 193 MG/DL (70-105); SODIUM 140 MMOL/L (135-145); TOTAL PROTEIN 6.1 GM/DL (6.4-8.2)
[~2017-07-26 09:04] MED LIST changes: -BARIUM SUSPENSION 2.1% (VANILLA SILQ) 450 ML PO ONE; -IOHEXOL 350 MG/ML 100 ML (OMNIPAQUE 350) VIAL IV ONE; -NS 100 ML (IVPB) BAG IV ONE
== END 2017-10-16 | disposition home or self-care (01) ==
LOC: ONC 09:04
PROVIDERS: ATTEND Internal Medicine Hematology & Oncology
DX: C82.13 Follicular lymphoma grade II, intra-abdominal lymph nodes (principal)
CPT/HCPCS: 36415; 80053; 83615; 85025; 99213

== ENCOUNTER 2017-10-24 08:34 | Outpatient (RCR) | payer MEDICARE ==
[~2017-10-24 08:34] MED LIST changes: -METF1000 PO; +METF10002 PO
[2017-10-24 09:03] LABS: BASOPHILS % (AUTO) 1 % (0-10); EOSINOPHILS # (AUTO) 0.2 10^3/uL (0.0-0.3); EOSINOPHILS % (AUTO) 3 % (0-10); HEMATOCRIT 36 % (40-54); HEMOGLOBIN 12.9 G/DL (13.3-17.7); LYMPHOCYTES # (AUTO) 0.9 X 10^3 (1.0-4.0); LYMPHOCYTES % (AUTO) 14 % (12-44); MEAN CORPUSCULAR HEMOGLOBIN 34 PG (25-34); MEAN CORPUSCULAR HGB CONC 36 G/DL (32-36); MEAN CORPUSCULAR VOLUME 95 FL (80-99); MEAN PLATELET VOLUME 9.9 FL (7.4-10.4); MONOCYTES # (AUTO) 0.6 X 10^3 (0.0-1.0); MONOCYTES % (AUTO) 10 % (0-12); NEUTROPHILS # (AUTO) 4.5 X 10^3 (1.8-7.8); NEUTROPHILS % (AUTO) 73 % (42-75); PLATELET COUNT 224 10^3/uL (130-400); RED BLOOD COUNT 3.82 10^6/uL (4.35-5.85); RED CELL DISTRIBUTION WIDTH 12.8 % (10.0-14.5); WHITE BLOOD COUNT 6.1 10^3/uL (4.3-11.0)
[2017-10-24 09:25] LABS: ALANINE AMINOTRANSFERASE 15 U/L (0-55); ALBUMIN 3.9 GM/DL (3.2-4.5); ALKALINE PHOSPHATASE 87 U/L (40-136); BILIRUBIN,TOTAL 0.5 MG/DL (0.1-1.0); BUN/CREATININE RATIO 15; CALCIUM 9.1 MG/DL (8.5-10.1); CARBON DIOXIDE 22 MMOL/L (21-32); CHLORIDE 105 MMOL/L (98-107); CREATININE SERUM 1.17 MG/DL (0.60-1.30); GFR ESTIMATED > 60; GLUCOSE 316 MG/DL (70-105); POTASSIUM 4.3 MMOL/L (3.6-5.0); SODIUM 138 MMOL/L (135-145); TOTAL PROTEIN 6.3 GM/DL (6.4-8.2)
[2017-11-07] MEDS ORDERED: NFIPRATRNS NS (13:13)
[2017-11-07] MEDS ORDERED: OMEG-77 PO (13:13)
[2017-11-07] MEDS ORDERED: CLOP75TA69 PO (13:13)
[2017-11-07] MEDS ORDERED: AMLO10TA2 PO (13:13)
[2017-11-07] MEDS ORDERED: ASPI-586 PO (13:13)
[2017-11-10] MEDS ORDERED: HYDR-3812 PO (09:26)
== END 2018-01-22 | disposition home or self-care (01) ==
LOC: ONC 08:34
PROVIDERS: ATTEND Internal Medicine Hematology & Oncology
DX: C82.13 Follicular lymphoma grade II, intra-abdominal lymph nodes (principal); R16.1 Splenomegaly, not elsewhere classified; J42 Unspecified chronic bronchitis; F17.210 Nicotine dependence, cigarettes, uncomplicated; I25.10 Atherosclerotic heart disease of native coronary artery without angina pectoris; E11.9 Type 2 diabetes mellitus without complications; I10 Essential (primary) hypertension; E78.5 Hyperlipidemia, unspecified; G47.33 Obstructive sleep apnea (adult) (pediatric); Z79.82 Long term (current) use of aspirin; Z79.84 Long term (current) use of oral hypoglycemic drugs; Z79.899 Other long term (current) drug therapy; Z92.21 Personal history of antineoplastic chemotherapy
CPT/HCPCS: 80053; 83615; 85025; 99213

== ENCOUNTER 2017-11-07 08:57 | Outpatient (CLI) | payer MEDICARE ==
[~2017-11-07] VITALS: Ht 171.4 cm; Wt 86.3 kg
[~2017-11-07 08:57] MED LIST changes: +METF1000 PO; -METF10002 PO
[2017-11-07] MEDS ORDERED: NFIPRATRNS NS (13:13)
[2017-11-07] MEDS ORDERED: AMLO10TA2 PO (13:13)
[2017-11-07] MEDS ORDERED: OMEG-77 PO (13:13)
[2017-11-07] MEDS ORDERED: CLOP75TA69 PO (13:13)
[2017-11-07] MEDS ORDERED: ASPI-586 PO (13:13)
== END 2017-11-07 13:25 ==
LOC: PREOP 08:57
PROVIDERS: ATTEND Otolaryngology Otolaryngology/Facial Plastic Surgery
DX: Z01.818 Encounter for other preprocedural examination (principal); J38.3 Other diseases of vocal cords

== ENCOUNTER 2017-11-10 06:30 | Day surgery (SDC) | payer MEDICARE, OTHER ==
[~2017-11-10] VITALS: Ht 171.4 cm; Wt 86.3 kg
[~2017-11-10 06:30] MED LIST changes: +ASPI-586 PO; +CLOP75TA69 PO; +NFIPRATRNS NS; +OMEG-77 PO
[2017-11-10 06:45] VITALS: BP 164/74
[2017-11-10] MEDS ORDERED: LACTATED RINGERS 1,000 ML IV PRN (06:51)
[2017-11-10] MEDS ORDERED: proPOfol 200 MG/20 ML (DIPRIVAN) VIAL IV ONE (06:53)
[2017-11-10] MEDS ORDERED: ONDANSETRON 4 MG/2 ML (SDV) Z0FRAN ONE (06:53)
[2017-11-10] MEDS ORDERED: ROCURONIUM 10 MG/ML 5 ML SYRINGE IV ONE (06:53)
[2017-11-10] MEDS ORDERED: MIDAZOLAM 2 MG/2 ML (VERSED) VIAL ONE (06:54)
[2017-11-10] MEDS ORDERED: SEVOFLURANE (ULTANE) 15 ML INHAL SOLN ONE (06:54)
[2017-11-10] MEDS ORDERED: fentaNYL INJECTION 100 MCG/2 ML AMP ONE (06:54)
[2017-11-10] MEDS ORDERED: LIDOCAINE PF 2% 5 ML (XYLOCAINE) VIAL ONE (06:54)
--- NOTE | 2017-11-10 07:00 | Progress Note-Pre Operative ---
Pre-Operative Progress Note H&P Reviewed The H&P was reviewed, patient examined and no changes noted. Date Seen by Provider: Nov 10, 2017 Time Seen by Provider: 07:00 Date H&P Reviewed: Nov 10, 2017 Time H&P Reviewed: 07:00 Pre-Operative Diagnosis: Left Vocal Cord Lesion SAHIL DEMPSEY MD Nov 10, 2017 7:00 am
[2017-11-10] MEDS ORDERED: LIDOCAINE/EPI 1%-1:200,000 (XYLOCAINE) 10 ML VIAL ONE (07:01)
[2017-11-10] MEDS ORDERED: ALBUTEROL INHALER HFA (VENTOLIN HFA) 8 GM IH ONE ×6 (07:58→08:18)
--- NOTE | 2017-11-10 08:10 | Progress Note-Post Operative ---
Post-Operative Progess Note Surgeon (s)/Chief Operating Officer (s) Surgeon SAHIL DEMPSEY MD Chief Operating Officer n/a Pre-Operative Diagnosis Left Vocal Cord Lesion Post-Operative Diagnosis same Post-Op Procedure Note Date of Procedure: Nov 10, 2017 Name of Procedure Performed: Direct Laryngosocpy with Removal of Left Vocal Cord Lesion Description & Findings Description and Findings: n/a Anesthesia Type get Estimated Blood Loss minimal Packing none. Specimen(s) collected/removed left vocal cord lesion SAHIL DEMPSEY MD Nov 10, 2017 8:10 am
[2017-11-10] MEDS ORDERED: ACETAMINOPHEN 325 MG TABLET/CAPLET (TYLENOL) PO PRN (08:15)
[2017-11-10] MEDS ORDERED: PROMETHAZINE INJ 25 MG/ML (PHENERGAN) AMP IV PRN (08:15)
[2017-11-10] MEDS ORDERED: HYDROcodone/APAP 5 MG/325 MG (LORTAB) TAB PO PRN (08:15)
[2017-11-10] MEDS ORDERED: RT-ALBUTEROL SULF 2.5 MG/3 ML PRE-MIX VIAL ONE (08:15)
[2017-11-10] MEDS ORDERED: morphine INJ 10 MG/ML 1ML (SYR OR VIAL) IVP PRN (08:30)
[2017-11-10] MEDS ORDERED: RT-ALBUTEROL SULF 2.5 MG/3 ML PRE-MIX VIAL INH ONE (08:30)
[2017-11-10 09:20] VITALS: BP 141/74
[2017-11-10] MEDS ORDERED: HYDR-3812 PO (09:26)
[2017-11-10 09:50] VITALS: BP 145/74
[2017-11-10 10:20] VITALS: BP 144/67
--- NOTE | 2017-11-10 14:04 | Anesthesia-General Post-Op ---
General Patient Condition Mental Status/LOC: Same as Preop Cardiovascular: Satisfactory Nausea/Vomiting: Absent Respiratory: Satisfactory Pain: Controlled Complications: Absent Post Op Complications Complications None Follow Up Care/Instructions Patient Instructions None needed. Anesthesia/Patient Condition Patient Condition Patient is doing well, no complaints, stable vital signs, no apparent adverse anesthesia problems. No complications reported per nursing. NUNU MARI CRNA Nov 10, 2017 14:04
== END 2017-11-10 10:20 | disposition home or self-care (01) ==
LOC: SDC 06:30
PROVIDERS: ATTEND Otolaryngology Otolaryngology/Facial Plastic Surgery
DX: J38.3 Other diseases of vocal cords (principal); E11.9 Type 2 diabetes mellitus without complications; I10 Essential (primary) hypertension; I25.10 Atherosclerotic heart disease of native coronary artery without angina pectoris; E78.00 Pure hypercholesterolemia, unspecified; F17.210 Nicotine dependence, cigarettes, uncomplicated; G47.33 Obstructive sleep apnea (adult) (pediatric); J45.909 Unspecified asthma, uncomplicated; J44.9 Chronic obstructive pulmonary disease, unspecified; Z79.02 Long term (current) use of antithrombotics/antiplatelets; Z79.82 Long term (current) use of aspirin; Z79.84 Long term (current) use of oral hypoglycemic drugs; Z79.899 Other long term (current) drug therapy; Z95.5 Presence of coronary angioplasty implant and graft
CPT/HCPCS: 82962; 87081

== ENCOUNTER 2018-01-23 08:46 | Outpatient (RCR) | payer MEDICARE, OTHER ==
[~2018-01-23 08:46] MED LIST changes: +HYDR-3812 PO; -METF1000 PO; +METF10002 PO
[2018-01-23 09:05] LABS: BASOPHILS % (AUTO) 1 % (0-10); EOSINOPHILS # (AUTO) 0.2 10^3/uL (0.0-0.3); EOSINOPHILS % (AUTO) 3 % (0-10); HEMATOCRIT 35 % (40-54); HEMOGLOBIN 12.4 G/DL (13.3-17.7); LYMPHOCYTES # (AUTO) 0.7 X 10^3 (1.0-4.0); LYMPHOCYTES % (AUTO) 12 % (12-44); MEAN CORPUSCULAR HEMOGLOBIN 34 PG (25-34); MEAN CORPUSCULAR HGB CONC 35 G/DL (32-36); MEAN CORPUSCULAR VOLUME 98 FL (80-99); MEAN PLATELET VOLUME 9.8 FL (7.4-10.4); MONOCYTES # (AUTO) 0.6 X 10^3 (0.0-1.0); MONOCYTES % (AUTO) 10 % (0-12); NEUTROPHILS # (AUTO) 4.3 X 10^3 (1.8-7.8); NEUTROPHILS % (AUTO) 75 % (42-75); PLATELET COUNT 222 10^3/uL (130-400); RED BLOOD COUNT 3.61 10^6/uL (4.35-5.85); RED CELL DISTRIBUTION WIDTH 12.6 % (10.0-14.5); WHITE BLOOD COUNT 5.7 10^3/uL (4.3-11.0)
[2018-01-23 09:30] LABS: ALANINE AMINOTRANSFERASE 17 U/L (0-55); ALKALINE PHOSPHATASE 87 U/L (40-136); BILIRUBIN,TOTAL 0.4 MG/DL (0.1-1.0); BUN/CREATININE RATIO 14; CALCIUM 9.1 MG/DL (8.5-10.1); CARBON DIOXIDE 21 MMOL/L (21-32); CHLORIDE 112 MMOL/L (98-107); CREATININE SERUM 1.16 MG/DL (0.60-1.30); GFR ESTIMATED > 60; GLUCOSE 277 MG/DL (70-105); POTASSIUM 4.6 MMOL/L (3.6-5.0); SODIUM 140 MMOL/L (135-145); TOTAL PROTEIN 6.2 GM/DL (6.4-8.2)
== END 2018-01-25 10:28 | disposition home or self-care (01) ==
LOC: ONC 08:46
PROVIDERS: ATTEND Internal Medicine Hematology & Oncology
DX: C82.13 Follicular lymphoma grade II, intra-abdominal lymph nodes (principal); R16.1 Splenomegaly, not elsewhere classified; J42 Unspecified chronic bronchitis; F17.210 Nicotine dependence, cigarettes, uncomplicated; I25.10 Atherosclerotic heart disease of native coronary artery without angina pectoris; E11.9 Type 2 diabetes mellitus without complications; I10 Essential (primary) hypertension; E78.5 Hyperlipidemia, unspecified; G47.33 Obstructive sleep apnea (adult) (pediatric); Z79.82 Long term (current) use of aspirin; Z79.84 Long term (current) use of oral hypoglycemic drugs; Z79.899 Other long term (current) drug therapy; Z92.21 Personal history of antineoplastic chemotherapy
CPT/HCPCS: 36415; 80053; 83615; 85025; 99213

== ENCOUNTER 2018-04-25 08:00 | Outpatient (RCR) | payer MEDICARE, OTHER ==
[2018-04-25 07:57] LABS: BASOPHILS % (AUTO) 1 % (0-10); EOSINOPHILS # (AUTO) 0.2 10^3/uL (0.0-0.3); EOSINOPHILS % (AUTO) 2 % (0-10); HEMATOCRIT 33 % (40-54); HEMOGLOBIN 11.3 G/DL (13.3-17.7); LYMPHOCYTES # (AUTO) 0.5 X 10^3 (1.0-4.0); LYMPHOCYTES % (AUTO) 8 % (12-44); MEAN CORPUSCULAR HEMOGLOBIN 34 PG (25-34); MEAN CORPUSCULAR HGB CONC 35 G/DL (32-36); MEAN CORPUSCULAR VOLUME 100 FL (80-99); MEAN PLATELET VOLUME 9.6 FL (7.4-10.4); MONOCYTES # (AUTO) 0.5 X 10^3 (0.0-1.0); MONOCYTES % (AUTO) 7 % (0-12); NEUTROPHILS # (AUTO) 5.3 X 10^3 (1.8-7.8); NEUTROPHILS % (AUTO) 82 % (42-75); PLATELET COUNT 224 10^3/uL (130-400); RED BLOOD COUNT 3.28 10^6/uL (4.35-5.85); RED CELL DISTRIBUTION WIDTH 12.9 % (10.0-14.5); WHITE BLOOD COUNT 6.5 10^3/uL (4.3-11.0)
[~2018-04-25 08:00] MED LIST changes: -AMLO10TA2 PO; +AMLO10TA6 PO; -LOSA100T28 PO; +LOSA100T8 PO; +METF-399 PO; -METF10002 PO
[2018-04-25 08:15] LABS: ALANINE AMINOTRANSFERASE 14 U/L (0-55); ALBUMIN 3.9 GM/DL (3.2-4.5); ALKALINE PHOSPHATASE 74 U/L (40-136); BILIRUBIN,TOTAL 0.4 MG/DL (0.1-1.0); BUN/CREATININE RATIO 12; CALCIUM 8.8 MG/DL (8.5-10.1); CARBON DIOXIDE 21 MMOL/L (21-32); CHLORIDE 110 MMOL/L (98-107); CREATININE SERUM 1.13 MG/DL (0.60-1.30); GFR ESTIMATED > 60; GLUCOSE 215 MG/DL (70-105); POTASSIUM 4.3 MMOL/L (3.6-5.0); SODIUM 137 MMOL/L (135-145); TOTAL PROTEIN 6.1 GM/DL (6.4-8.2)
== END 2018-07-19 09:18 | disposition home or self-care (01) ==
LOC: ONC 08:00
PROVIDERS: ATTEND Internal Medicine Hematology & Oncology
DX: C82.13 Follicular lymphoma grade II, intra-abdominal lymph nodes (principal); R16.1 Splenomegaly, not elsewhere classified; F17.210 Nicotine dependence, cigarettes, uncomplicated; I25.10 Atherosclerotic heart disease of native coronary artery without angina pectoris; E11.9 Type 2 diabetes mellitus without complications; I10 Essential (primary) hypertension; E78.5 Hyperlipidemia, unspecified; G47.33 Obstructive sleep apnea (adult) (pediatric); Z79.82 Long term (current) use of aspirin; Z79.84 Long term (current) use of oral hypoglycemic drugs; Z79.899 Other long term (current) drug therapy; Z92.21 Personal history of antineoplastic chemotherapy
CPT/HCPCS: 36415; 80053; 83615; 85025; 99213

== ENCOUNTER → 2018-07-09 | Outpatient (CLI) | payer MEDICARE, OTHER ==
[~2018-07-09] MED LIST changes: +RT-ALBUTEROL SULF 2.5 MG/3 ML PRE-MIX VIAL INH ONE
== END ==
LOC: RT 09:15
PROVIDERS: ATTEND Nurse Practitioner Family
DX: J20.9 Acute bronchitis, unspecified (principal); J30.9 Allergic rhinitis, unspecified; R05 Cough; R09.02 Hypoxemia; G47.33 Obstructive sleep apnea (adult) (pediatric); Z72.0 Tobacco use
CPT/HCPCS: 94060; 94726; 94729

== ENCOUNTER → 2018-07-19 | Outpatient (CLI) | payer MEDICARE, OTHER ==
[~2018-07-19] MED LIST changes: -RT-ALBUTEROL SULF 2.5 MG/3 ML PRE-MIX VIAL INH ONE
--- NOTE | 2018-07-19 11:56 | Diagnostic Imaging Report ---
INDICATION: Lymphoma. COMPARISON: Exam compared to 07/18/2017. TECHNIQUE: Pre IV contrast-enhanced CT abdomen performed. Post IV contrast-enhanced CT neck, chest, and abdomen performed. Multiplanar reconstructions at each level performed. The comparison study performed in similar fashion. FINDINGS: NECK: There is progressive left maxillary sinus opacification but improvement in right maxillary sinus membrane thickening. Membrane thickening in the ethmoid air cells has improved. No air-fluid levels. No cervical lymphadenopathy. Nasopharynx, oropharynx, and hypopharynx are unremarkable. The vocal cords are held in apposition during image acquisition. Prevertebral and retropharyngeal spaces are normal. CHEST: The lungs are clear. There is no thoracic effusion. No hilar or mediastinal lymphadenopathy. No acute soft tissue or osseous chest wall pathology. Heart and pericardium are unremarkable. There is a small hiatal hernia. ABDOMEN: A large right retroperitoneal suprarenal mass appears encapsulated and has both fatty and soft tissue components measuring 16 cm maximal, most likely owing to stable myelolipoma without evidence for its hemorrhage or rupture. The contralateral left adrenal appears normal. Kidneys themselves are intrinsically unremarkable. The right kidney is mildly displaced anteriorly by the fatty retroperitoneal mass. This is unchanged. The adjacent appendix is normal. The liver appears intrinsically unremarkable. Its right lobe is displaced by the chronic fatty mass. The spleen is unremarkable. The pancreas is negative. Hazy soft tissue induration and increased density, periceliac and periaortic as well as peripheral to the takeoff of the SMA, is a redemonstrated finding, and the tissue density shows a reduction in the Hounsfield units, and the extent of this tissue has improved from the prior. Its maximal transverse dimension today is roughly 3 cm, previously 3.5 cm. At the level of the aorta's bifurcation and at the level of the proximal iliacs, no abnormal retroperitoneal tissue. No infiltration of the mesenteric root. No mesenteric adenopathy. The gallbladder is contracted. The osseous structures are unremarkable. IMPRESSION: Neck: No cervical lymphadenopathy. Chest: No thoracic adenopathy, effusion, or acute pathology. Abdomen: 1. Hazy induration of tissue retroperitoneal, periaortic, and along the margins of the takeoff of the celiac and SMA which is likely the favorable change. 2. A chronic fatty and soft tissue mixed density right retroperitoneal mass, most likely myelolipoma without evidence for rupture or change. Dictated by: Dictated on workstation # [id number]
== END ==
LOC: RAD 09:39
PROVIDERS: ATTEND Internal Medicine Hematology & Oncology
DX: C82.13 Follicular lymphoma grade II, intra-abdominal lymph nodes (principal); R19.00 Intra-abdominal and pelvic swelling, mass and lump, unspecified site
CPT/HCPCS: 70491; 71260; 74170

== ENCOUNTER 2018-07-23 12:53 | Outpatient (RCR) | payer MEDICARE, OTHER ==
[2018-07-19 09:56] LABS: BASOPHILS % (AUTO) 1 % (0-10); EOSINOPHILS # (AUTO) 0.2 10^3/uL (0.0-0.3); EOSINOPHILS % (AUTO) 3 % (0-10); HEMATOCRIT 36 % (40-54); HEMOGLOBIN 12.3 G/DL (13.3-17.7); LYMPHOCYTES % (AUTO) 16 % (12-44); MEAN CORPUSCULAR HEMOGLOBIN 34 PG (25-34); MEAN CORPUSCULAR HGB CONC 35 G/DL (32-36); MEAN CORPUSCULAR VOLUME 98 FL (80-99); MEAN PLATELET VOLUME 10.3 FL (7.4-10.4); MONOCYTES # (AUTO) 0.5 X 10^3 (0.0-1.0); MONOCYTES % (AUTO) 9 % (0-12); NEUTROPHILS # (AUTO) 4.4 X 10^3 (1.8-7.8); NEUTROPHILS % (AUTO) 72 % (42-75); PLATELET COUNT 223 10^3/uL (130-400); RED CELL DISTRIBUTION WIDTH 12.1 % (10.0-14.5); WHITE BLOOD COUNT 6.1 10^3/uL (4.3-11.0)
[2018-07-19 10:23] LABS: ALANINE AMINOTRANSFERASE 18 U/L (0-55); ALBUMIN 4.1 GM/DL (3.2-4.5); ALKALINE PHOSPHATASE 86 U/L (40-136); BILIRUBIN,TOTAL 0.4 MG/DL (0.1-1.0); BUN/CREATININE RATIO 12; CALCIUM 9.6 MG/DL (8.5-10.1); CARBON DIOXIDE 22 MMOL/L (21-32); CHLORIDE 107 MMOL/L (98-107); CREATININE SERUM 1.07 MG/DL (0.60-1.30); GFR ESTIMATED > 60; GLUCOSE 185 MG/DL (70-105); POTASSIUM 4.5 MMOL/L (3.6-5.0); SODIUM 139 MMOL/L (135-145); TOTAL PROTEIN 6.5 GM/DL (6.4-8.2)
[~2018-07-23 12:53] MED LIST changes: -AMLO10TA6 PO; +AMLO10TA7 PO; +LOSA100T57 PO; -LOSA100T8 PO
== END 2018-10-17 | disposition home or self-care (01) ==
LOC: ONC 12:53
PROVIDERS: ATTEND Internal Medicine Hematology & Oncology
DX: C82.13 Follicular lymphoma grade II, intra-abdominal lymph nodes (principal); R16.1 Splenomegaly, not elsewhere classified; F17.210 Nicotine dependence, cigarettes, uncomplicated; I25.10 Atherosclerotic heart disease of native coronary artery without angina pectoris; E11.9 Type 2 diabetes mellitus without complications; I10 Essential (primary) hypertension; E78.5 Hyperlipidemia, unspecified; G47.33 Obstructive sleep apnea (adult) (pediatric); Z79.82 Long term (current) use of aspirin; Z79.84 Long term (current) use of oral hypoglycemic drugs; Z79.899 Other long term (current) drug therapy; Z92.21 Personal history of antineoplastic chemotherapy
CPT/HCPCS: 36415; 80053; 83615; 85025; 99213

== ENCOUNTER → 2018-10-01 | Outpatient (CLI) | payer MEDICARE, OTHER ==
--- NOTE | 2018-10-01 19:01 | Diagnostic Imaging Report ---
INDICATION: Pain in both knees. AP, oblique, and lateral views of both knees were obtained. FINDINGS: No fracture or acute bony abnormality is seen. Joint spaces appear unremarkable. There are vascular calcifications noted. IMPRESSION: Negative bilateral knees. Dictated by: Dictated on workstation # [id number]
== END ==
LOC: RAD 10:52
PROVIDERS: ATTEND Family Medicine
DX: G89.29 Other chronic pain (principal); M25.562 Pain in left knee; M25.561 Pain in right knee

== ENCOUNTER → 2018-10-23 | Outpatient (CLI) | payer MEDICARE, OTHER | LOC: LAB 13:08 | PROVIDERS: ATTEND Family Medicine | DX: E11.9 Type 2 diabetes mellitus without complications (principal) | CPT/HCPCS: 36415; 83036 ==

== ENCOUNTER → 2019-01-21 | Outpatient (RCR) | payer MEDICARE, OTHER ==
[2018-10-23 13:14] LABS: BASOPHILS % (AUTO) 1 % (0-10); EOSINOPHILS # (AUTO) 0.2 10^3/uL (0.0-0.3); EOSINOPHILS % (AUTO) 2 % (0-10); HEMATOCRIT 35 % (40-54); LYMPHOCYTES # (AUTO) 0.8 X 10^3 (1.0-4.0); LYMPHOCYTES % (AUTO) 11 % (12-44); MEAN CORPUSCULAR HEMOGLOBIN 34 PG (25-34); MEAN CORPUSCULAR HGB CONC 35 G/DL (32-36); MEAN CORPUSCULAR VOLUME 99 FL (80-99); MEAN PLATELET VOLUME 9.8 FL (7.4-10.4); MONOCYTES # (AUTO) 0.7 X 10^3 (0.0-1.0); MONOCYTES % (AUTO) 8 % (0-12); NEUTROPHILS # (AUTO) 6.2 X 10^3 (1.8-7.8); NEUTROPHILS % (AUTO) 79 % (42-75); PLATELET COUNT 235 10^3/uL (130-400); RED CELL DISTRIBUTION WIDTH 12.8 % (10.0-14.5); WHITE BLOOD COUNT 7.9 10^3/uL (4.3-11.0)
[2018-10-23 13:36] LABS: ALBUMIN 3.9 GM/DL (3.2-4.5); BILIRUBIN,TOTAL 0.4 MG/DL (0.1-1.0); CALCIUM 8.9 MG/DL (8.5-10.1); CREATININE SERUM 1.4 MG/DL (0.60-1.30); POTASSIUM 4.4 MMOL/L (3.6-5.0); TOTAL PROTEIN 6.3 GM/DL (6.4-8.2)
[2019-01-21 09:04] LABS: BASOPHILS # (AUTO) 0.1 10^3/uL (0.0-0.1); BASOPHILS % (AUTO) 1 % (0-10); EOSINOPHILS # (AUTO) 0.2 10^3/uL (0.0-0.3); EOSINOPHILS % (AUTO) 3 % (0-10); HEMATOCRIT 36 % (40-54); HEMOGLOBIN 12.2 G/DL (13.3-17.7); LYMPHOCYTES # (AUTO) 0.9 X 10^3 (1.0-4.0); LYMPHOCYTES % (AUTO) 12 % (12-44); MEAN CORPUSCULAR HEMOGLOBIN 34 PG (25-34); MEAN CORPUSCULAR HGB CONC 34 G/DL (32-36); MEAN CORPUSCULAR VOLUME 99 FL (80-99); MEAN PLATELET VOLUME 10.3 FL (7.4-10.4); MONOCYTES # (AUTO) 0.7 X 10^3 (0.0-1.0); MONOCYTES % (AUTO) 10 % (0-12); NEUTROPHILS # (AUTO) 5.5 X 10^3 (1.8-7.8); NEUTROPHILS % (AUTO) 75 % (42-75); PLATELET COUNT 240 10^3/uL (130-400); RED CELL DISTRIBUTION WIDTH 12.9 % (10.0-14.5); WHITE BLOOD COUNT 7.3 10^3/uL (4.3-11.0)
[2019-01-21 09:29] LABS: ALBUMIN 4.2 GM/DL (3.2-4.5); BILIRUBIN,TOTAL 0.3 MG/DL (0.1-1.0); CREATININE SERUM 1.62 MG/DL (0.60-1.30); POTASSIUM 4.4 MMOL/L (3.6-5.0); TOTAL PROTEIN 6.5 GM/DL (6.4-8.2)
== END | disposition home or self-care (01) ==
LOC: ONC 10-23 12:46
PROVIDERS: ATTEND Internal Medicine Hematology & Oncology
DX: C82.13 Follicular lymphoma grade II, intra-abdominal lymph nodes (principal); R16.1 Splenomegaly, not elsewhere classified; F17.210 Nicotine dependence, cigarettes, uncomplicated; I25.10 Atherosclerotic heart disease of native coronary artery without angina pectoris; E11.9 Type 2 diabetes mellitus without complications; I10 Essential (primary) hypertension; E78.5 Hyperlipidemia, unspecified; G47.33 Obstructive sleep apnea (adult) (pediatric); Z79.82 Long term (current) use of aspirin; Z79.84 Long term (current) use of oral hypoglycemic drugs; Z79.899 Other long term (current) drug therapy; Z92.21 Personal history of antineoplastic chemotherapy
CPT/HCPCS: 36415; 80053; 83615; 85025; 99213

== ENCOUNTER 2019-07-22 08:52 | Outpatient (RCR) | payer MEDICARE, OTHER ==
[~2019-07-22 08:52] MED LIST changes: +ACHD5005 PO; -HYDR-3812 PO; -MONT10TA24 PO; +MONT10TA26 PO
[2019-07-22 09:03] LABS: BASOPHILS # (AUTO) 0.1 10^3/uL (0.0-0.1); BASOPHILS % (AUTO) 1 % (0-10); EOSINOPHILS # (AUTO) 0.3 10^3/uL (0.0-0.3); EOSINOPHILS % (AUTO) 4 % (0-10); HEMATOCRIT 34 % (40-54); HEMOGLOBIN 11.6 G/DL (13.3-17.7); LYMPHOCYTES # (AUTO) 0.9 X 10^3 (1.0-4.0); LYMPHOCYTES % (AUTO) 14 % (12-44); MEAN CORPUSCULAR HEMOGLOBIN 34 PG (25-34); MEAN CORPUSCULAR HGB CONC 34 G/DL (32-36); MEAN CORPUSCULAR VOLUME 101 FL (80-99); MEAN PLATELET VOLUME 9.8 FL (7.4-10.4); MONOCYTES # (AUTO) 0.6 X 10^3 (0.0-1.0); MONOCYTES % (AUTO) 9 % (0-12); NEUTROPHILS # (AUTO) 4.9 X 10^3 (1.8-7.8); NEUTROPHILS % (AUTO) 73 % (42-75); PLATELET COUNT 215 10^3/uL (130-400); RED CELL DISTRIBUTION WIDTH 12.9 % (10.0-14.5); WHITE BLOOD COUNT 6.7 10^3/uL (4.3-11.0)
[2019-07-22 09:22] LABS: BILIRUBIN,TOTAL 0.4 MG/DL (0.1-1.0); CALCIUM 9.1 MG/DL (8.5-10.1); CREATININE SERUM 1.27 MG/DL (0.60-1.30); POTASSIUM 4.5 MMOL/L (3.6-5.0); TOTAL PROTEIN 6.4 GM/DL (6.4-8.2)
== END 2019-10-20 | disposition home or self-care (01) ==
LOC: ONC 08:52
PROVIDERS: ATTEND Internal Medicine Hematology & Oncology
DX: C82.13 Follicular lymphoma grade II, intra-abdominal lymph nodes (principal); R16.1 Splenomegaly, not elsewhere classified; F17.210 Nicotine dependence, cigarettes, uncomplicated; I25.10 Atherosclerotic heart disease of native coronary artery without angina pectoris; E11.9 Type 2 diabetes mellitus without complications; I10 Essential (primary) hypertension; E78.5 Hyperlipidemia, unspecified; G47.33 Obstructive sleep apnea (adult) (pediatric); Z79.82 Long term (current) use of aspirin; Z79.84 Long term (current) use of oral hypoglycemic drugs; Z79.899 Other long term (current) drug therapy; Z92.21 Personal history of antineoplastic chemotherapy; J42 Unspecified chronic bronchitis
CPT/HCPCS: 80053; 83615; 85025; 99213

== ENCOUNTER → 2019-07-26 | Outpatient (CLI) | payer MEDICARE, OTHER ==
[~2019-07-26] MED LIST changes: -ACHD5005 PO; +HYDR-3812 PO; +MONT10TA24 PO; -MONT10TA26 PO
--- NOTE | 2019-07-26 11:28 | NUR ---
PT CAME FOR 6 MIN WALK TEST; PER ORDER. WALKED PT, LOWEST SPO2 ON RA DURING 6 MINUTES (NO REST) WAS 93%, NO O2 REQUIRED AT THIS TIME. WRITTEN TEST WAS SENT TO ORDERING PHYSICIAN DR. VILLANUEVA TO [facility].
== END ==
LOC: RT 08:53
PROVIDERS: ATTEND Nurse Practitioner Family
DX: J98.4 Other disorders of lung (principal)

== ENCOUNTER → 2019-07-26 | Outpatient (CLI) | payer MEDICARE, OTHER ==
[~2019-07-26] MED LIST changes: +BARIUM SUSPENSION 2.1% (VANILLA SILQ) 450 ML PO ONE; +CATHETER FLUSH 10 ML SYR IV PRN; +HOLD METFORMIN - RECEIVED CONTRAST 20 ML VIAL IV SCH; +IOHEXOL 350 MG/ML 100 ML (OMNIPAQUE 350) VIAL IV ONE; +NS 100 ML (IVPB) BAG IV ONE
--- NOTE | 2019-07-26 10:43 | Diagnostic Imaging Report ---
PROCEDURE: CT chest with contrast, CT abdomen and pelvis with and without contrast. TECHNIQUE: Pre and post intravenous contrast axial imaging of the abdomen and pelvis and post contrast axial imaging of the chest were performed. Auto Exposure Controls were utilized during the CT exam to meet ALARA standards for radiation dose reduction. INDICATION: Lymphoma, follow-up. COMPARISON: Correlation is made with prior CT from 07/19/2018. CT CHEST: No axillary lymphadenopathy is detected. No mediastinal or hilar lymphadenopathy is identified. There is no pericardial or pleural fluid. Pulmonary parenchymal evaluation demonstrates the central airways to be patent. There is some minimal scarring in the lingula. Minimal subpleural scarring in the superior segment right lower lobe as well as the right upper lobe are noted. No parenchymal mass, infiltrate or nodule is identified. The bony structures are nonacute. IMPRESSION: Stable unremarkable CT chest. No thoracic lymphadenopathy is detected. CT ABDOMEN AND PELVIS: No discrete liver mass is identified. The gallbladder is unremarkable. No biliary duct dilatation is seen. The pancreas and spleen are unremarkable. Left adrenal gland is unremarkable. The large, mixed density right suprarenal mass is again noted. This again contains fatty elements. Overall size appears very similar to prior exam. The right and left kidneys are stable in appearance. The previously noted hazy increased density at the level of the celiac axis appears to be slightly less prominent on today's study. Hazy density in the left periaortic location persists but also appears to be slightly improved. No discrete periaortic lymphadenopathy is identified. There is no mesenteric lymphadenopathy. No iliac or inguinal lymphadenopathy is detected. Bowel loops are normal caliber. The appendix is visualized and unremarkable. There is no ascites. Partially filled urinary bladder is unremarkable. Prostate and seminal vesicles are unremarkable. The bony structures are nonacute. IMPRESSION: Overall stable CT of the abdomen and pelvis when compared with prior CT from one year earlier. The large mixed density mass in the right suprarenal location is stable. No new area of lymphadenopathy in the abdomen or pelvis is identified. Previously noted regions of hazy increased density at the celiac axis and left periaortic location appears to be slightly improved. No acute features identified. Dictated by: Dictated on workstation # [id number]
== END ==
LOC: RAD 08:47
PROVIDERS: ATTEND Nurse Practitioner Adult Health
DX: C82.13 Follicular lymphoma grade II, intra-abdominal lymph nodes (principal)
CPT/HCPCS: 71260; 74178

== ENCOUNTER → 2020-01-13 | Outpatient (CLI) | payer MEDICARE, OTHER ==
[~2020-01-13] MED LIST changes: +ACHD5005 PO; -BARIUM SUSPENSION 2.1% (VANILLA SILQ) 450 ML PO ONE; -CATHETER FLUSH 10 ML SYR IV PRN; -HOLD METFORMIN - RECEIVED CONTRAST 20 ML VIAL IV SCH; -HYDR-3812 PO; -IOHEXOL 350 MG/ML 100 ML (OMNIPAQUE 350) VIAL IV ONE; -MONT10TA24 PO; +MONT10TA26 PO; -NS 100 ML (IVPB) BAG IV ONE
== END ==
LOC: CARD 12:57
PROVIDERS: ATTEND Nurse Practitioner Family
DX: I25.10 Atherosclerotic heart disease of native coronary artery without angina pectoris (principal); I65.29 Occlusion and stenosis of unspecified carotid artery; I11.9 Hypertensive heart disease without heart failure; E78.5 Hyperlipidemia, unspecified; G47.33 Obstructive sleep apnea (adult) (pediatric)
CPT/HCPCS: 93306

== ENCOUNTER → 2020-01-14 | Outpatient (CLI) | payer MEDICARE, OTHER ==
[~2020-01-14] VITALS: Ht 171 cm; Wt 84.0 kg
[~2020-01-14] MED LIST changes: +CATHETER FLUSH 10 ML SYR IV PRN; +REGADENOSON 0.4 MG/5 ML SYR (LEXISCAN) IV ONE
[2020-01-14 09:35] VITALS: BP 144/61
--- NOTE | 2020-01-14 16:27 | STRESS TEST ---
DATE OF SERVICE: 01/14/2020 RESTING AND POST REGADENOSON TECHNETIUM-99M TETROFOSMIN SPECT CT IMAGING CLINICAL DIAGNOSIS: Coronary artery disease. ORDERING PHYSICIAN: Kayla Purvis APRN PRIMARY PHYSICIAN: Dr. William Wilburn. Baseline images were carried out after injection of 10.96 mCi of technetium-99m Tetrofosmin. This was followed by 0.4 mg regadenoson and 32.1 mCi of technetium-99m Tetrofosmin for stress imaging. The electrocardiogram showed sinus bradycardia at baseline. The electrocardiogram did not change significantly with regadenoson infusion. The patient noted mild shortness of breath following regadenoson infusion, which resolved in a few minutes. Review of images at rest and following stress indicates a small apical perfusion defect, which is predominantly fixed. Gated images show localized apical akinesis. Global left ventricular systolic function is well preserved. Left ventricular ejection fraction is calculated to be 67%. Left ventricular end diastolic volume is 81 mL. TID is absent (1.06). CONCLUSIONS: 1. This study is indicative of a small apical infarction with a small amount of alejandra-infarct ischemia. 2. Localized apical akinesis. 3. Well preserved global left ventricular systolic function with ejection fraction of 67%. Job ID: [id number] DocumentID: [id number] Dictated Date: 01/14/2020 15:43:34 Dental Patient Coordinator Date: 01/14/2020 16:26:09 Dictated By: TONIA SALGADO MD, MA, FACP, FACC,
== END ==
LOC: CARD 07:53
PROVIDERS: ATTEND Nurse Practitioner Family
DX: I25.10 Atherosclerotic heart disease of native coronary artery without angina pectoris (principal); I11.9 Hypertensive heart disease without heart failure; I65.23 Occlusion and stenosis of bilateral carotid arteries; E78.5 Hyperlipidemia, unspecified; G47.33 Obstructive sleep apnea (adult) (pediatric)
CPT/HCPCS: 78452; 93017

== ENCOUNTER → 2020-01-20 | Outpatient (CLI) | payer MEDICARE, OTHER ==
[~2020-01-20] MED LIST changes: -CATHETER FLUSH 10 ML SYR IV PRN; -REGADENOSON 0.4 MG/5 ML SYR (LEXISCAN) IV ONE
[2020-01-20 09:09] LABS: BASOPHILS % (AUTO) 1 % (0-10); EOSINOPHILS # (AUTO) 0.2 10^3/uL (0.0-0.3); EOSINOPHILS % (AUTO) 2 % (0-10); HEMATOCRIT 33 % (40-54); HEMOGLOBIN 11.3 G/DL (13.3-17.7); LYMPHOCYTES # (AUTO) 0.9 X 10^3 (1.0-4.0); LYMPHOCYTES % (AUTO) 10 % (12-44); MEAN CORPUSCULAR HEMOGLOBIN 35 PG (25-34); MEAN CORPUSCULAR HGB CONC 35 G/DL (32-36); MEAN CORPUSCULAR VOLUME 102 FL (80-99); MEAN PLATELET VOLUME 9.9 FL (7.4-10.4); MONOCYTES # (AUTO) 0.7 X 10^3 (0.0-1.0); MONOCYTES % (AUTO) 8 % (0-12); NEUTROPHILS # (AUTO) 6.9 X 10^3 (1.8-7.8); NEUTROPHILS % (AUTO) 79 % (42-75); PLATELET COUNT 243 10^3/uL (130-400); RED CELL DISTRIBUTION WIDTH 12.6 % (10.0-14.5); WHITE BLOOD COUNT 8.7 10^3/uL (4.3-11.0)
[2020-01-20 09:45] LABS: BILIRUBIN,TOTAL 0.4 MG/DL (0.1-1.0); CALCIUM 9.2 MG/DL (8.5-10.1); CREATININE SERUM 1.33 MG/DL (0.60-1.30); POTASSIUM 4.7 MMOL/L (3.6-5.0); TOTAL PROTEIN 6.6 GM/DL (6.4-8.2)
== END ==
LOC: EDSTATUS 10-21 12:01 → ONC 08:52
PROVIDERS: ATTEND Internal Medicine Hematology & Oncology
DX: C85.10 Unspecified B-cell lymphoma, unspecified site (principal); J42 Unspecified chronic bronchitis; B02.9 Zoster without complications; N18.3 Chronic kidney disease, stage 3 (moderate)
CPT/HCPCS: 80053; 83615; 85025; G0463; 99213

== ENCOUNTER → 2020-07-13 | Outpatient (CLI) | payer MEDICARE, OTHER ==
[~2020-07-13] MED LIST changes: +AMLO-251 PO; -AMLO10TA7 PO; +ASPI-1238 PO; -ASPI-983 PO; -MONT10TA26 PO; +MONT10TA97 PO; +RT-ALBUTEROL SULF 2.5 MG/3 ML PRE-MIX VIAL INH ONE
== END ==
LOC: RT 10:07
PROVIDERS: ATTEND Nurse Practitioner Family
DX: J98.4 Other disorders of lung (principal); G47.33 Obstructive sleep apnea (adult) (pediatric); J30.9 Allergic rhinitis, unspecified; G47.34 Idiopathic sleep related nonobstructive alveolar hypoventilation; Z72.0 Tobacco use
CPT/HCPCS: 94060; 94726; 94729

== ENCOUNTER → 2020-07-21 | Outpatient (CLI) | payer MEDICARE, OTHER ==
[~2020-07-21] MED LIST changes: -RT-ALBUTEROL SULF 2.5 MG/3 ML PRE-MIX VIAL INH ONE
[2020-07-21 09:12] LABS: BASOPHILS # (AUTO) 0.1 10^3/uL (0.0-0.1); BASOPHILS % (AUTO) 1 % (0-10); EOSINOPHILS # (AUTO) 0.3 10^3/uL (0.0-0.3); EOSINOPHILS % (AUTO) 4 % (0-10); HEMATOCRIT 31 % (40-54); HEMOGLOBIN 10.1 g/dL (13.3-17.7); LYMPHOCYTES # (AUTO) 0.9 10^3/uL (1.0-4.0); LYMPHOCYTES % (AUTO) 13 % (12-44); MEAN CORPUSCULAR HEMOGLOBIN 33 pg (25-34); MEAN CORPUSCULAR HGB CONC 33 g/dL (32-36); MEAN CORPUSCULAR VOLUME 101 fL (80-99); MEAN PLATELET VOLUME 9.2 fL (9.0-12.2); MONOCYTES # (AUTO) 0.5 10^3/uL (0.0-1.0); MONOCYTES % (AUTO) 7 % (0-12); NEUTROPHILS # (AUTO) 5.4 10^3/uL (1.8-7.8); NEUTROPHILS % (AUTO) 75 % (42-75); PLATELET COUNT 305 10^3/uL (130-400); WHITE BLOOD COUNT 7.2 10^3/uL (4.3-11.0)
[2020-07-21 09:20] LABS: ALBUMIN 3.6 GM/DL (3.2-4.5); POTASSIUM 4.2 MMOL/L (3.6-5.0)
[2020-07-21 09:22] LABS: CALCIUM 8.2 MG/DL (8.5-10.1)
[2020-07-21 09:23] LABS: TOTAL PROTEIN 6.3 GM/DL (6.4-8.2)
[2020-07-21 09:25] LABS: BILIRUBIN,TOTAL 0.3 MG/DL (0.1-1.0)
[2020-07-21 09:26] LABS: CREATININE SERUM 1.28 MG/DL (0.60-1.30)
== END ==
LOC: ONC 09:03
PROVIDERS: ATTEND Internal Medicine Hematology & Oncology
DX: C82.10 Follicular lymphoma grade II, unspecified site (principal); I12.9 Hypertensive chronic kidney disease with stage 1 through stage 4 chronic kidney disease, or unspecified chronic kidney disease; E11.22 Type 2 diabetes mellitus with diabetic chronic kidney disease; D63.1 Anemia in chronic kidney disease; N18.30 Chronic kidney disease, stage 3 unspecified; J42 Unspecified chronic bronchitis; J38.3 Other diseases of vocal cords; B02.9 Zoster without complications; J43.9 Emphysema, unspecified; E78.5 Hyperlipidemia, unspecified; I25.10 Atherosclerotic heart disease of native coronary artery without angina pectoris; Z92.21 Personal history of antineoplastic chemotherapy
CPT/HCPCS: 80053; 83615; 85025; G0463; 99213

== ENCOUNTER → 2020-08-03 | Outpatient (CLI) | payer MEDICARE, OTHER ==
[~2020-08-03] MED LIST changes: +HOLD METFORMIN - RECEIVED CONTRAST 20 ML VIAL IV SCH; +IOHEXOL 350 MG/ML 100 ML (OMNIPAQUE 350) VIAL IV ONE; +NS 100 ML (IVPB) BAG IV ONE
--- NOTE | 2020-08-03 11:02 | Diagnostic Imaging Report ---
PROCEDURE: CT chest with contrast, CT abdomen and pelvis with and without contrast. TECHNIQUE: Pre and post intravenous contrast axial imaging of the abdomen and pelvis and post contrast axial imaging of the chest were performed. Auto Exposure Controls were utilized during the CT exam to meet ALARA standards for radiation dose reduction. INDICATION: Lymphoma. Correlation is made with prior CT from 07/26/2019. CT CHEST: No axillary lymphadenopathy is identified. No mediastinal or hilar lymphadenopathy is detected. There is no pericardial or pleural fluid. A minimal infiltrate in the right middle lobe is identified. There is also minimal interstitial infiltrate in the left lower lobe. No parenchymal mass is identified. IMPRESSION: 1. No thoracic lymphadenopathy is detected. 2. Minimal infiltrate right middle lobe and left lower lobe. CT abdomen and pelvis: No discrete liver mass is identified. Gallbladder is unremarkable. There is no biliary ductal dilatation. Pancreas and spleen are unremarkable. Left adrenal glands are unremarkable. The large mixed density fat-containing mass in the right supra renal location appears stable. Kidneys are unremarkable. Aorta is non-aneurysmal. Previously noted hazy density at the level of the celiac axis and central retroperitoneum appears stable. No definite lymphadenopathy is identified. The small and large bowel loops are normal caliber. There is no ascites. The bladder is decompressed. Prostate is unremarkable. No pelvic lymphadenopathy is seen. IMPRESSION: Overall stable CT abdomen and pelvis when compared with exam from one year earlier. Large mixed density right suprarenal mass is stable. Hazy density in the central retroperitoneum appears stable. No new abnormality is detected. Dictated by: Dictated on workstation # [id number]
== END ==
LOC: RAD 08:56
PROVIDERS: ATTEND Nurse Practitioner Adult Health
DX: C82.90 Follicular lymphoma, unspecified, unspecified site (principal); R91.8 Other nonspecific abnormal finding of lung field
CPT/HCPCS: 71260; 74178

== ENCOUNTER → 2021-01-20 | Outpatient (CLI) | payer MEDICARE, OTHER ==
[~2021-01-20] MED LIST changes: -HOLD METFORMIN - RECEIVED CONTRAST 20 ML VIAL IV SCH; -IOHEXOL 350 MG/ML 100 ML (OMNIPAQUE 350) VIAL IV ONE; +MONT10TA32 PO; -MONT10TA97 PO; -NS 100 ML (IVPB) BAG IV ONE
[2021-01-20 09:22] LABS: ABSOLUTE RETIC # 46 10e9/uL (24-90); BASOPHILS # (AUTO) 0.1 10^3/uL (0.0-0.1); BASOPHILS % (AUTO) 1 % (0-10); EOSINOPHILS # (AUTO) 0.3 10^3/uL (0.0-0.3); EOSINOPHILS % (AUTO) 3 % (0-10); HEMATOCRIT 31 % (40-54); HEMOGLOBIN 10.4 g/dL (13.3-17.7); LYMPHOCYTES # (AUTO) 1.1 10^3/uL (1.0-4.0); LYMPHOCYTES % (AUTO) 10 % (12-44); MEAN CORPUSCULAR HEMOGLOBIN 34 pg (25-34); MEAN CORPUSCULAR HGB CONC 33 g/dL (32-36); MEAN CORPUSCULAR VOLUME 102 fL (80-99); MEAN PLATELET VOLUME 9.2 fL (9.0-12.2); MONOCYTES # (AUTO) 0.9 10^3/uL (0.0-1.0); MONOCYTES % (AUTO) 9 % (0-12); NEUTROPHILS # (AUTO) 8.2 10^3/uL (1.8-7.8); NEUTROPHILS % (AUTO) 77 % (42-75); PLATELET COUNT 302 10^3/uL (130-400); WHITE BLOOD COUNT 10.6 10^3/uL (4.3-11.0)
[2021-01-20 09:41] LABS: ALBUMIN 3.6 GM/DL (3.2-4.5); BILIRUBIN,TOTAL 0.3 MG/DL (0.1-1.0); CREATININE SERUM 1.42 MG/DL (0.60-1.30); POTASSIUM 4.7 MMOL/L (3.6-5.0); TOTAL PROTEIN 6.4 GM/DL (6.4-8.2)
== END ==
LOC: ONC 09:09
PROVIDERS: ATTEND Internal Medicine Hematology & Oncology
DX: C82.43 Follicular lymphoma grade IIIb, intra-abdominal lymph nodes (principal); I12.9 Hypertensive chronic kidney disease with stage 1 through stage 4 chronic kidney disease, or unspecified chronic kidney disease; E11.22 Type 2 diabetes mellitus with diabetic chronic kidney disease; N18.30 Chronic kidney disease, stage 3 unspecified; J42 Unspecified chronic bronchitis; B02.9 Zoster without complications; J38.3 Other diseases of vocal cords; I25.10 Atherosclerotic heart disease of native coronary artery without angina pectoris; J43.9 Emphysema, unspecified; J30.9 Allergic rhinitis, unspecified; Z72.0 Tobacco use; Z92.21 Personal history of antineoplastic chemotherapy
CPT/HCPCS: 80053; 82607; 82728; 82746; 83540; 83550; 83615; 85025; 85045; G0463; 99213

== ENCOUNTER → 2021-04-14 | Outpatient (CLI) | payer MEDICARE, OTHER ==
--- NOTE | 2021-04-14 09:05 | Diagnostic Imaging Report ---
PROCEDURE: US Hepatic (Liver). TECHNIQUE: Multiple Real-time grayscale images were obtained over the right upper quadrant in various projections. INDICATION: Abdominal swelling. FINDINGS: The liver measures 20 cm. There is hepatopetal flow in the portal vein. There is no intrahepatic biliary ductal dilatation. The common bile duct is obscured. The gallbladder is contracted with some echogenic non-shadowing foci. No wall thickening or pericholecystic fluid. The pancreas and aorta are obscured by bowel gas. The IVC is patent. The right kidney is normal. There is a nonspecific heterogeneous mass superior to the right kidney measuring 18 x 16 x 18.9 cm. There is no ascites. The Mendoza's sign is negative. IMPRESSION: The heterogeneous mass superior to the right kidney appears stable compared to the prior CT from 08/03/2020. Mild hepatomegaly. Contracted gallbladder with some echogenic debris, likely sludge. Otherwise, unremarkable right upper quadrant ultrasound apart from obscuration of the pancreas and aorta due to bowel gas. Dictated by: Dictated on workstation # [id number]
== END ==
LOC: RAD 07:52
PROVIDERS: ATTEND Family Medicine
DX: K76.0 Fatty (change of) liver, not elsewhere classified (principal); N28.89 Other specified disorders of kidney and ureter
CPT/HCPCS: 76705

== ENCOUNTER → 2021-07-14 | Outpatient (CLI) | payer MEDICARE, OTHER ==
[~2021-07-14] MED LIST changes: +MONT-40 PO; -MONT10TA32 PO
[2021-07-14 09:27] LABS: ABSOLUTE RETIC # 50 10e9/uL (24-90); BASOPHILS # (AUTO) 0.1 10^3/uL (0.0-0.1); BASOPHILS % (AUTO) 1 % (0-10); EOSINOPHILS # (AUTO) 0.4 10^3/uL (0.0-0.3); EOSINOPHILS % (AUTO) 5 % (0-10); HEMATOCRIT 32 % (40-54); LYMPHOCYTES # (AUTO) 1.1 10^3/uL (1.0-4.0); LYMPHOCYTES % (AUTO) 15 % (12-44); MEAN CORPUSCULAR HEMOGLOBIN 35 pg (25-34); MEAN CORPUSCULAR HGB CONC 34 g/dL (32-36); MEAN CORPUSCULAR VOLUME 102 fL (80-99); MEAN PLATELET VOLUME 10.2 fL (9.0-12.2); MONOCYTES # (AUTO) 0.6 10^3/uL (0.0-1.0); MONOCYTES % (AUTO) 8 % (0-12); NEUTROPHILS # (AUTO) 5.1 10^3/uL (1.8-7.8); NEUTROPHILS % (AUTO) 70 % (42-75); PLATELET COUNT 214 10^3/uL (130-400); RETICULOCYTE % 1.56 % (0.50-2.40); WHITE BLOOD COUNT 7.2 10^3/uL (4.3-11.0)
[2021-07-14 09:50] LABS: ALBUMIN 3.8 GM/DL (3.2-4.5); BILIRUBIN,TOTAL 0.4 MG/DL (0.1-1.0); CALCIUM 8.6 MG/DL (8.5-10.1); CREATININE SERUM 1.33 MG/DL (0.60-1.30); POTASSIUM 4.9 MMOL/L (3.6-5.0); TOTAL PROTEIN 6.2 GM/DL (6.4-8.2)
== END ==
LOC: ONC 09:13
PROVIDERS: ATTEND Internal Medicine Hematology & Oncology
DX: C85.93 Non-Hodgkin lymphoma, unspecified, intra-abdominal lymph nodes (principal); G62.9 Polyneuropathy, unspecified; J42 Unspecified chronic bronchitis; J38.3 Other diseases of vocal cords; I25.10 Atherosclerotic heart disease of native coronary artery without angina pectoris; I12.9 Hypertensive chronic kidney disease with stage 1 through stage 4 chronic kidney disease, or unspecified chronic kidney disease; N18.30 Chronic kidney disease, stage 3 unspecified; E78.5 Hyperlipidemia, unspecified; E66.9 Obesity, unspecified; Z92.21 Personal history of antineoplastic chemotherapy
CPT/HCPCS: 80053; 83615; 85025; 85045; G0463; 99213

== ENCOUNTER 2022-02-17 09:44 | Outpatient (CLI) | payer MEDICARE, OTHER ==
[~2022-02-17] VITALS: Ht 168.9 cm; Wt 82.6 kg
[2022-02-17] MEDS ORDERED: FOLI1TAB33 PO (10:43)
[2022-02-17] MEDS ORDERED: CNC1KV IM (10:43)
[2022-02-17] MEDS ORDERED: CETI10TA17 PO (10:43)
[2022-02-17] MEDS ORDERED: HYDR12.56 PO (10:43)
[2022-02-17] MEDS ORDERED: NITR0.4T42 SL (10:43)
[2022-02-18] MEDS ORDERED: PANT40TA2 PO (14:05)
[2022-02-18] MEDS ORDERED: SUCR1TAB36 PO (14:05)
[2022-02-18] MEDS ORDERED: FAMO-119 PO (14:06)
== END 2022-02-17 10:45 | disposition home or self-care (01) ==
LOC: PREOP 09:44
PROVIDERS: ATTEND Surgery
DX: Z01.818 Encounter for other preprocedural examination (principal)

== ENCOUNTER 2022-02-18 11:54 | Day surgery (SDC) | payer MEDICARE, OTHER ==
[~2022-02-18] VITALS: Ht 168.9 cm; Wt 82.6 kg
[~2022-02-18 11:54] MED LIST changes: +CETI10TA17 PO; +CNC1KV IM; +FOLI1TAB33 PO; +HYDR12.56 PO; +NITR0.4T42 SL
[2022-02-18] MEDS ORDERED: LACTATED RINGERS 1,000 ML IV STA (12:06)
[2022-02-18] MEDS ORDERED: HURRICAINE EXT TUBE (BENZOCAINE) XX PRN (12:15)
--- NOTE | 2022-02-18 12:25 | Progress Note-Pre Operative ---
Pre-Operative Progress Note H&P Reviewed The H&P was reviewed, patient examined and no changes noted. Date Seen by Provider: Feb 18, 2022 Time Seen by Provider: 12:25 Date H&P Reviewed: Feb 18, 2022 Time H&P Reviewed: 12:25 Pre-Operative Diagnosis: iron def anemia KATIA DAVIES DO Feb 18, 2022 12:25
[2022-02-18 12:31] VITALS: BP 154/83
[2022-02-18] MEDS ORDERED: PROPOFOL INJECTION 50 ML IV ONE (13:17)
[2022-02-18] MEDS ORDERED: GLYCOPYRROLATE 0.2 MG/ML (ROBINUL) 2 ML VIAL ONE (13:25)
--- NOTE | 2022-02-18 14:01 | Anesthesia-General Post-Op ---
MAC Patient Condition Mental Status/LOC: Same as Preop Cardiovascular: Satisfactory Nausea/Vomiting: Absent Respiratory: Satisfactory Pain: Controlled Complications: Absent Post Op Complications Complications None Follow Up Care/Instructions Patient Instructions None needed. Anesthesiology Discharge Order Discharge Order Patient is doing well, no complaints, stable vital signs, no apparent adverse anesthesia problems. No complications reported per nursing. MABEL SIMMONS CRNA Feb 18, 2022 14:01
--- NOTE | 2022-02-18 14:04 | Progress Note-Post Operative ---
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
[2022-02-18 14:05] VITALS: BP 111/74
[2022-02-18] MEDS ORDERED: PANT40TA2 PO (14:05)
[2022-02-18] MEDS ORDERED: SUCR1TAB36 PO (14:05)
[2022-02-18] MEDS ORDERED: FAMO-119 PO (14:06)
--- NOTE | 2022-02-18 14:07 | Discharge Inst-Simple/Standard ---
Discharge Inst-Standard Discharge Medications New, Converted or Re-Newed RX: Transmitted to Pharmacy Patient Instructions/Follow Up Plan of Care/Instructions/FU: 2 weeks James. Hold aspirin and plavix for 3 days. Activity as Tolerated: Yes Discharge Diet: Other Diet (Ulcer diet) KATIA DAVIES DO Feb 18, 2022 14:07
[2022-02-18 14:10] VITALS: BP 107/61
[2022-02-18 14:15] VITALS: BP 107/61
[2022-02-18 14:50] VITALS: BP 107/61
--- NOTE | 2022-02-19 | OPERATIVE REPORT ---
DATE OF SERVICE: 02/18/2022 PREOPERATIVE DIAGNOSIS: Iron deficiency anemia. POSTOPERATIVE DIAGNOSIS: Punctate duodenal ulcerations in the antrum, hiatal hernia, colon polyps. PROCEDURE: EGD with biopsies, colonoscopy with snare polypectomy x6. 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 ESTIMATED BLOOD LOSS: None. COMPLICATIONS: None. INDICATIONS: The patient is a 71-year-old male with iron deficiency anemia. He understands risks and benefits of procedure and wishes to proceed. Consent was signed in the chart. DESCRIPTION OF PROCEDURE: The patient was taken to the endoscopy suite, placed in left lateral recumbent position. Timeout was performed. Scope was inserted in mouth, down the esophagus, stomach and into the duodenum without difficulty. Second portion of the duodenum, no polyps, masses or ulcerations. First portion of duodenum, large linear ulceration, no active bleeding at this time. Biopsy of joint of this area was obtained. Scope was then slowly retracted back into the stomach where it was further insufflated. Small punctate ulcerations within the antrum. Biopsy of the antrum was obtained. Scope was retroflexed noting a moderate size hiatal hernia, no other pathology. Scope was returned to its normal position. Biopsy of the GE junction was obtained. No polyps, masses or ulcerations. Scope was slowly retracted back until completely removed. Digital rectal exam was performed. No palpable polyps, masses or ulcerations. Scope was inserted in the rectum, advanced all the way to cecum with minimal difficulty. Prep was adequate with irrigation and suction. Scope was slowly retracted back in the cecum, a small polyp was present, which snare polypectomy was performed. Specimen was obtained. Scope was then continuously retracted back in the ascending colon, where 3 polyps were present, which snare polypectomies were performed and these were obtained for specimen. Scope was then continuously retracted back. No polyps, masses or ulcerations within the transverse and descending colon. In the sigmoid colon, two small polyps were present, which snare polypectomies were performed. Scope was then continuously retracted back into the rectum, where it was also retroflexed noting no other pathology. Scope was returned to its normal position, slowly withdrawn until completely removed. The patient tolerated procedure well without any complications. He was taken to recovery room in stable condition. RECOMMENDATIONS: The patient will be started on Protonix 40 mg daily, Pepcid 20 mg b.i.d. and Carafate 1 gram four times a day. We will follow up on biopsy results and follow his hemoglobin. The patient has also multiple polyps, which snare polypectomy was performed. The patient will follow up on biopsy results and would recommend repeat colonoscopy in 3 to 5 years depending on pathology. Further recommendations pending results. Any issues before that be seen at that time. The patient will follow up in 2 weeks. CC: William Wilburn MD - requested, unable to deliver. Job ID: [id number] DocumentID: [id number] Dictated Date: 02/18/2022 14:10:48 Wet Primer Powder Blender Date: 02/18/2022 23:59:47 Dictated By: KATIA RAMIREZ DO
== END 2022-02-18 14:55 | disposition home or self-care (01) ==
LOC: ENDO 11:54
PROVIDERS: ATTEND Surgery
DX: D12.0 Benign neoplasm of cecum (principal); D12.2 Benign neoplasm of ascending colon; D12.5 Benign neoplasm of sigmoid colon; K22.9 Disease of esophagus, unspecified; K22.89 Other specified disease of esophagus; K31.89 Other diseases of stomach and duodenum; K29.80 Duodenitis without bleeding; D50.9 Iron deficiency anemia, unspecified; K44.9 Diaphragmatic hernia without obstruction or gangrene; K26.9 Duodenal ulcer, unspecified as acute or chronic, without hemorrhage or perforation; F17.210 Nicotine dependence, cigarettes, uncomplicated; Z79.02 Long term (current) use of antithrombotics/antiplatelets; Z85.72 Personal history of non-Hodgkin lymphomas
CPT/HCPCS: 88305

== ENCOUNTER 2022-03-07 12:28 | Emergency (ER) | payer MEDICARE, OTHER ==
[~2022-03-07] VITALS: Ht 167.7 cm; Wt 82.5 kg
[~2022-03-07 12:28] MED LIST changes: +FAMO-119 PO; +PANT40TA2 PO; +SUCR1TAB36 PO
--- NOTE | 2022-03-07 13:12 | ED Lower Extremity ---
General Chief Complaint: Lower Extremity Stated Complaint: BILAT LEG SWELLING Source: patient, family () Exam Limitations: no limitations History of Present Illness Date Seen by Provider: Mar 07, 2022 Time Seen by Provider: 12:57 Initial Comments Patient is a 71-year-old male who presents to the emergency department today with a chief complaint of bilateral lower extremity swelling. Patient states its been going on for a couple of months. He saw Dr. Pandey in the beginning of February and was placed on hydrochlorothiazide 12.5 mg tablets to be taken every other day. Patient states he is continued to have swelling and he thinks if anything the swelling has gotten much worse. He has formally been on Lasix but apparently he was over diuresed and became very lightheaded and dizzy with that. He is also been recently found to have quite a few stomach ulcers on EGD and colonoscopy. He had blood transfusions of about 2 units a couple of weeks ago. He feels short of breath with exertion. He states he is urinating normally. Infrequent bowel movements. Nonblack nonbloody. No fevers, chills, COVID concerns. He does have reflux and is on multiple medications to protect his stomach from acid due to the ulcers. He was scheduled to see Dr. Pandey this month for an EKG, stress test and possible heart cath but had to cancel due to the anemia and transfusions. Dr. Pandey is out for the rest of the month. Patient states that he is started to develop a burning discomfort in his ankles and feet due to the swelling. He has diabetes with nephropathy. He has COPD and continues to smoke. He has a history of coronary artery disease as well. He does not think that he has congestive heart failure. All other review of systems reviewed and negative except as stated. Onset: other (1-2 months) Severity: moderate Pain/Injury Location: bilateral leg Allergies and Home Medications Allergies Coded Allergies: LEE Inhibitors (Unverified Adverse Reaction, Mild, cough, 11/07/17) Patient Home Medication List Home Medication List Reviewed: Yes Aspirin (Aspir 81) 81 Mg Tablet., 81 MG PO DAILY, (Reported) Entered as Reported by: OXANA MONTILLA on 11/07/17 1313 Atorvastatin Calcium (Atorvastatin Calcium) 80 Mg Tablet, 80 MG PO HS, (Reported) Entered as Reported by: ERIKA PAIZ on 07/11/16 1326 Cetirizine HCl (Cetirizine HCl) 10 Mg Tablet, 10 MG PO DAILY, (Reported) Entered as Reported by: SUZANNE MIRAMONTES on 02/17/22 1043 Clopidogrel Bisulfate (Plavix) 75 Mg Tablet, 75 MG PO DAILY, (Reported) Entered as Reported by: OXANA MONTILLA on 11/07/17 1313 Cyanocobalamin (Cyanocobalamin Injection) 1,000 Mcg/Ml Inj, 1,000 MCG IM WEEK, (Reported) Entered as Reported by: SUZANNE MIRAMONTES on 02/17/22 1043 Docusate Sodium (Stool Softener) 100 Mg Tablet, 100 MG PO TID, (Reported) Entered as Reported by: OXANA MONTILLA on 03/03/17 0928 Famotidine (Pepcid) 20 Mg Tablet, 20 MG PO BID Prescribed by: KATIA DAVIES on 02/18/22 1406 Folic Acid (Folic Acid) 1 Mg Tablet, 1 MG PO DAILY, (Reported) Entered as Reported by: SUZANNE MIRAMONTES on 02/17/22 1043 Gabapentin (Gabapentin) 300 Mg Capsule, 300 MG PO HS, (Reported) Entered as Reported by: ERIKA PAIZ on 07/11/16 1326 Glipizide (Glipizide) 10 Mg Tablet, 10 MG PO DAILY, (Reported) Entered as Reported by: ERIKA PAIZ on 07/11/16 1326 Hydrochlorothiazide (Hydrochlorothiazide) 12.5 Mg Tablet, 12.5 MG PO DAILY, (Reported) Entered as Reported by: SUZANNE MIRAMONTES on 02/17/22 1043 Metformin HCl (Metformin HCl) 1,000 Mg Tablet, 1,000 MG PO BID WITH MEALS, (Reported) Entered as Reported by: ERIKA PAIZ on 07/11/16 1326 Metoprolol Tartrate (Metoprolol Tartrate) 100 Mg Tablet, 100 MG PO BID, (Reported) Entered as Reported by: ARIANNA SANDOVAL on 07/12/16 0804 Montelukast Sodium (Montelukast Sodium) 10 Mg Tablet, 10 MG PO HS, (Reported) Entered as Reported by: ERIKA PAIZ on 07/11/16 1326 Nitroglycerin (Nitroglycerin) 0.4 Mg Tab.subl, 0.4 MG SL PRN, (Reported) Entered as Reported by: SUZANNE MARES on 02/17/22 1043 Pantoprazole Sodium (Protonix) 40 Mg Tablet.dr, 40 MG PO DAILY Prescribed by: KATIA DAVIES on 02/18/22 1405 Sucralfate (Carafate) 1 Gram Tablet, 1 GM PO QID Prescribed by: KATIA DAVIES on 02/18/22 1405 Review of Systems Constitutional: see HPI EENTM: no symptoms reported Respiratory: orthopnea, short of breath Cardiovascular: no symptoms reported Gastrointestinal: no symptoms reported Genitourinary: no symptoms reported Musculoskeletal: other (leg swelling) Skin: no symptoms reported Psychiatric/Neurological: Paresthesia All Other Systems Reviewed Negative Unless Noted: Yes Past Hzhnzwx-Jmffts-Beryko Hx Patient Social History Tobacco Use?: Yes Tobacco type used: Cigarettes Substance use?: No Alcohol Use?: No Pt feels they are or have been: Unable to obtain Immunizations Up To Date Tetanus Booster (TDap): Unknown PED Vaccines UTD: No Influenza Vaccine Up-to-Date: Yes; Up-to-Date First/Initial COVID19 Vaccinat: 2020 Second COVID19 Vaccination Hung: 2020 Third COVID19 Vaccination Date: 2020 Seasonal Allergies Seasonal Allergies: Yes Past Medical History Surgeries: Yes (HYDROCELECTOMY, SPERMATOCELE, JOINT REMOVED FROM TOE, BILAT ROTATOR CUFF) Coronary Stent, Vasectomy Respiratory: Yes (CHRONIC COUGH, HOME 02 PRN) Asthma, Sleep Apnea Currently Using CPAP: No (HADNT BEEN USING DO TO COUGHING) Currently Using BIPAP: No Cardiac: Yes (STENT) Coronary Artery Disease, High Cholesterol, Hypertension Neurological: No Reproductive Disorders: No Sexually Transmitted Disease: No HIV/AIDS: No Gastrointestinal: Yes Colitis, Chronic Constipation Musculoskeletal: Yes Degenerate Disk Disease, Chronic Back Pain Endocrine: Yes Diabetes, Non-Insulin dep Loss of Vision: Bilateral Hearing Impairment: Denies Cancer: Yes Lymphoma Did You Recieve Any Treatments: Yes What Type of Treatment Did You: Chemotherapy Psychosocial: No Integumentary: No Blood Disorders: No Adverse Reaction/Blood Tranf: No (N/A) Physical Exam Vital Signs Vital Signs - First Documented 03/07/22 12:50 Pulse 56 Resp 18 B/P (MAP) 166/79 (108) Pulse Ox 96 O2 Delivery Room Air Capillary Refill : Height, Weight, BMI Height: 5'7.50" Weight: 190lbs. 3.0oz. 86.355791ri; 28.95 BMI Method:Stated General Appearance: WD/WN, no apparent distress HEENT: PERRL/EOMI Neck: normal inspection Cardiovascular: regular rate, rhythm Respiratory: lungs clear, normal breath sounds, no respiratory distress, no accessory muscle use Gastrointestinal: soft, other (Protuberant/obese; no significant point tenderness) Hips: bilateral hip normal inspection Legs: bilateral leg swelling (2-3+ pitting edema bilateral lower extremity) Knees: bilateral knee normal inspection Ankles: bilateral ankle non-tender, bilateral ankle swelling Feet: bilateral foot swelling Neurologic/Psychiatric: alert, normal mood/affect, oriented x 3 Skin: normal color, warm/dry Progress/Results/Core Measures Results/Orders Lab Results Laboratory Tests Test 03/07/22 13:23 Range/Units White Blood Count 9.9 4.3-11.0 10^3/uL Red Blood Count 2.76 L 4.30-5.52 10^6/uL Hemoglobin 8.7 L 13.3-17.7 g/dL Hematocrit 27 L 40-54 % Mean Corpuscular Volume 96 80-99 fL Mean Corpuscular Hemoglobin 32 25-34 pg Mean Corpuscular Hemoglobin Concent 33 32-36 g/dL Red Cell Distribution Width 15.5 H 10.0-14.5 % Platelet Count 281 130-400 10^3/uL Mean Platelet Volume 9.8 9.0-12.2 fL Immature Granulocyte % (Auto) 0 % Neutrophils (%) (Auto) 77 H 42-75 % Lymphocytes (%) (Auto) 9 L 12-44 % Monocytes (%) (Auto) 8 0-12 % Eosinophils (%) (Auto) 4 0-10 % Basophils (%) (Auto) 1 0-10 % Neutrophils # (Auto) 7.6 1.8-7.8 10^3/uL Lymphocytes # (Auto) 0.9 L 1.0-4.0 10^3/uL Monocytes # (Auto) 0.8 0.0-1.0 10^3/uL Eosinophils # (Auto) 0.4 H 0.0-0.3 10^3/uL Basophils # (Auto) 0.1 0.0-0.1 10^3/uL Immature Granulocyte # (Auto) 0.0 0.0-0.1 10^3/uL Sodium Level 140 135-145 MMOL/L Potassium Level 3.8 3.6-5.0 MMOL/L Chloride Level 107 98-107 MMOL/L Carbon Dioxide Level 22 21-32 MMOL/L Anion Gap 11 5-14 MMOL/L Blood Urea Nitrogen 12 7-18 MG/DL Creatinine 0.99 0.60-1.30 MG/DL Estimat Glomerular Filtration Rate 82 BUN/Creatinine Ratio 12 Glucose Level 196 H 70-105 MG/DL Calcium Level 8.1 L 8.5-10.1 MG/DL B-Type Natriuretic Peptide 659.7 H <100.0 PG/ML My Orders Orders - RODRIGO PATTEN MD Ed Iv/Invasive Line Start (03/07/22 13:12) Cbc With Automated Diff (03/07/22 13:12) Basic Metabolic Panel (03/07/22 13:12) Bnp [place] (03/07/22 13:12) Ekg Tracing (03/07/22 13:12) Chest 1 View, Ap/Pa Only (03/07/22 13:12) Furosemide Injection (Lasix Injection) (03/07/22 14:30) Medications Given in ED Current Medications Medications Dose Ordered Sig/Sean Route Start Time Stop Time Status Last Admin Dose Admin Furosemide 40 mg ONCE ONCE IVP 03/07/22 14:30 03/07/22 14:31 DC 03/07/22 14:31 40 MG Vital Signs/I&O 03/07/22 12:50 Pulse 56 Resp 18 B/P (MAP) 166/79 (108) Pulse Ox 96 O2 Delivery Room Air Progress Progress Note : Time: 16:40 Progress Note I have reviewed the patient's labs, EKG and chest x-ray. He does not have a significant amount of pulmonary vascular congestion. He did have an echocardiogram in 2019 which showed an intact ejection fraction. His vital signs have been stable. I gave him 40 mg of Lasix IV. He is urinated once in the last 30 minutes. I did advise him that he would likely continue to increase in urination over the next 5 hours. I reviewed with him how to take his hydrochlorothiazide 12.5 mg tablets over the next 10 days. Return precautions have been provided. Both he and his verbalized understanding. All questions are sought and answered. Initial ECG Impression Date: Mar 07, 2022 Initial ECG Impression Time: 13:38 Initial ECG Rate: 48 Initial ECG Rhythm: Normal Sinus, S.Kedar Initial ECG Intervals: Normal Initial ECG Intervals MD interval 156 QRS 92 QTC 490 Comment No ectopy, no ST segment elevation or depression Diagnostic Imaging Diagonstic Imaging: Xray Plain Films/CT/US/NM/MRI: chest Comments [facility], [place] NAME: JOCELYN DENNY [facility] REC#: [id number] PT STATUS: REG ER : 1950 PHYSICIAN: RODRIGO PATTEN MD ADMIT DATE: 03/07/22/ER Draft Date of Exam:03/07/22 CHEST 1 VIEW, AP/PA ONLY INDICATION: Dyspnea and edema Single AP view of chest is obtained with comparison made to study of 04/03/2017 Heart size and pulmonary vascularity are within normal limits. There is mild left basilar atelectasis. There is slight groundglass density in the lungs with a basilar predominance which could be due to mild edema or pneumonitis. No consolidation is identified. IMPRESSION: Mild basilar atelectasis and/or pneumonitis with atelectasis on the left. Dictated on workstation # [id number] Dict: 03/07/22 1351 Trans: 03/07/22 1353 CVB [id number] Interpreted by: MARYANNE VU MD Electronically signed by: Departure Impression Primary Impression: Peripheral edema Disposition: 01 HOME, SELF-CARE Condition: Stable Departure-Patient Inst. Decision time for Depature: 15:38 Referrals: MONI LOWE MD (PCP/Family) Primary Care Physician Patient Instructions: Swelling Add. Discharge Instructions: Take your HCTZ medication every day for the next 3 days starting tomorrow, Monday, . Then do not take any on Monday, March 11. Start taking it again daily on Monday, Monday and Monday. By this time you should have moved quite a bit of fluid. If at any point you feel a little lightheaded or dizzy while taking the HCTZ daily, take a day off. Watch your salt intake as this can cause you to hold onto extra fluid. Salt is found in canned vegetables, Pepsi, Dr. Sun, all sodas etc. Try and stay active, up and moving around as this will increase her circulation and help you to urinate off extra fluid. Follow-up with your primary care doctor in a week. Return to the emergency department for any new, concerning or emergent complaints. Scripts Hydrochlorothiazide (Hydrochlorothiazide) 12.5 Mg Tablet 12.5 MG PO DAILY, #10 TAB Prov: RODRIGO PATTEN MD 03/07/22 RODRIGO PATTEN MD Mar 07, 2022 13:12
[2022-03-07 13:30] LABS: BASOPHILS # (AUTO) 0.1 10^3/uL (0.0-0.1); BASOPHILS % (AUTO) 1 % (0-10); EOSINOPHILS # (AUTO) 0.4 10^3/uL (0.0-0.3); EOSINOPHILS % (AUTO) 4 % (0-10); HEMATOCRIT 27 % (40-54); HEMOGLOBIN 8.7 g/dL (13.3-17.7); LYMPHOCYTES # (AUTO) 0.9 10^3/uL (1.0-4.0); LYMPHOCYTES % (AUTO) 9 % (12-44); MEAN CORPUSCULAR HEMOGLOBIN 32 pg (25-34); MEAN CORPUSCULAR HGB CONC 33 g/dL (32-36); MEAN CORPUSCULAR VOLUME 96 fL (80-99); MEAN PLATELET VOLUME 9.8 fL (9.0-12.2); MONOCYTES # (AUTO) 0.8 10^3/uL (0.0-1.0); MONOCYTES % (AUTO) 8 % (0-12); NEUTROPHILS # (AUTO) 7.6 10^3/uL (1.8-7.8); NEUTROPHILS % (AUTO) 77 % (42-75); PLATELET COUNT 281 10^3/uL (130-400); WHITE BLOOD COUNT 9.9 10^3/uL (4.3-11.0)
[2022-03-07 13:44] LABS: POTASSIUM 3.8 MMOL/L (3.6-5.0)
[2022-03-07 13:46] LABS: CALCIUM 8.1 MG/DL (8.5-10.1)
[2022-03-07 13:50] LABS: CREATININE SERUM 0.99 MG/DL (0.60-1.30)
--- NOTE | 2022-03-07 13:53 | Diagnostic Imaging Report ---
INDICATION: Dyspnea and edema Single AP view of chest is obtained with comparison made to study of 04/03/2017 Heart size and pulmonary vascularity are within normal limits. There is mild left basilar atelectasis. There is slight groundglass density in the lungs with a basilar predominance which could be due to mild edema or pneumonitis. No consolidation is identified. IMPRESSION: Mild basilar atelectasis and/or pneumonitis with atelectasis on the left. Dictated by: Dictated on workstation # [id number]
[2022-03-07] MEDS ORDERED: FUROSEMIDE 40 MG/4 ML INJ (LASIX) IVP ONE (14:30)
[2022-03-07] MEDS ORDERED: HYDR12.56 PO (15:40)
[2022-03-07 15:47] VITALS: BP 144/71
== END 2022-03-07 15:47 | disposition home or self-care (01) ==
LOC: EDUNIT# 12:28 → ER 12:29
DX: R60.0 Localized edema (principal)
CPT/HCPCS: 36415; 71045; 80048; 83880; 85025; 93005

== ENCOUNTER → 2022-03-25 | Outpatient (CLI) | payer MEDICARE, OTHER | LOC: CARD 13:00 | PROVIDERS: ATTEND Internal Medicine Cardiovascular Disease | DX: I35.1 Nonrheumatic aortic (valve) insufficiency (principal) | CPT/HCPCS: 93306 ==

== ENCOUNTER → 2022-03-29 | Outpatient (CLI) | payer MEDICARE, OTHER ==
[~2022-03-29] MED LIST changes: +CATHETER FLUSH 10 ML SYR IVP PRN; +REGADENOSON 0.4 MG/5 ML SYR (LEXISCAN) IV ONE
[2022-03-29 08:58] VITALS: BP 186/78
--- NOTE | 2022-03-30 08:37 | STRESS TEST ---
DATE OF SERVICE: 03/29/2022 RESTING AND POST REGADENOSON TECHNETIUM-99M TETROFOSMIN SPECT CT IMAGING ORDERING PHYSICIAN: Dr. Pandey. PRIMARY PHYSICIAN: Dr. William Wilburn. CLINICAL DIAGNOSIS: Coronary artery disease. Baseline images were carried out after injection of 10.55 mCi of technetium-99m Tetrofosmin. This was followed by 0.4 mg regadenoson and 30.7 mCi of technetium-99m Tetrofosmin for stress imaging. The electrocardiogram showed sinus rhythm at baseline. It did not change significantly with regadenoson infusion. The patient had a feeling of being hot after regadenoson infusion, which resolved in a few minutes. Review of images at rest and following stress indicates a fixed inferoapical perfusion defect. Gated images show inferoapical akinesis. Left ventricular ejection fraction is calculated to be 60%. CONCLUSIONS: 1. This study is indicative of a relatively small inferoapical myocardial infarction without significant ischemia. 2. Inferoapical akinesis. 3. Left ventricular ejection fraction is 60%. Job ID: [id number] DocumentID: [id number] Dictated Date: 03/30/2022 07:44:31 [employer] Date: 03/30/2022 08:36:45 Dictated By: TNOIA PANDEY MD, MA, FACP, FACC,
== END ==
LOC: CARD 08:00
PROVIDERS: ATTEND Internal Medicine Cardiovascular Disease
DX: I25.10 Atherosclerotic heart disease of native coronary artery without angina pectoris (principal)
CPT/HCPCS: 78452; 93017; A9502

== ENCOUNTER 2022-05-29 08:37 | Inpatient (IN) | payer MEDICARE, OTHER ==
[~2022-05-29] VITALS: Ht 171.4 cm; Wt 86.3 kg
[~2022-05-29 08:37] MED LIST changes: -CATHETER FLUSH 10 ML SYR IVP PRN; -REGADENOSON 0.4 MG/5 ML SYR (LEXISCAN) IV ONE
[2022-05-29] MEDS ORDERED: NALOXONE 0.4 MG/ML 1 ML (NARCAN) VIAL ONE (08:48)
[2022-05-29] MEDS ORDERED: NALOXONE 0.4 MG/ML 1 ML (NARCAN) VIAL IV ONE (09:00)
--- NOTE | 2022-05-29 09:00 | ED Neurological Problem ---
General Stated Complaint: HYPOGLYCEMIA Source: family, EMS Exam Limitations: clinical condition History of Present Illness Date Seen by Provider: May 29, 2022 Time Seen by Provider: 08:45 Initial Comments 71-year-old male brought to the emergency room by EMS for hypoglycemic episode. is present at the time of my evaluation and states that she noted that he was poorly responsive in bed at around 7 AM this morning. She could not wake him and called the ambulance. His blood sugar was found to be 23. This was treated by EMS and his blood sugar improved to approximately 179. His mentation however did not improve. He had normal blood pressure and normal pulse. He is found to be hypothermic at arrival core temp 34 to 35 C. He will not open his eyes to command but does respond to sternal rub reaching for my arm and grimacing and moaning a little bit. He has sonorous respirations. He does open his eyes a little and appears to track me as I am examining him briefly. His pupils are noted to be pinpoint at 1 to 2 mm bilaterally. His states that he did take a muscle relaxer last night that his sister gave him for some chronic left neck and shoulder pain. He also is on some opiate medication for chronic pain. She reports no recent illnesses such as fevers, chills, productive cough. No nausea or vomiting. No problems with bowel or bladder. He is a diabetic with a history of hypertension cardiovascular disease, lymphoma that is in remission. His primary care doctor is William Lowe. She states that he takes his daily medications. He did have an episode yesterday morning of some low blood sugar. This was treated at home, EMS was not involved. It recovered. He was fine all day yesterday. All other review of systems reviewed with the and negative except as stated. Timing/Duration: 1-3 hours Severity: severe Allergies and Home Medications Allergies Coded Allergies: LEE Inhibitors (Unverified Adverse Reaction, Mild, cough, 11/07/17) Patient Home Medication List Home Medication List Reviewed: Yes Aspirin (Aspir 81) 81 Mg Tablet., 81 MG PO DAILY, (Reported) Entered as Reported by: OXANA MONTILLA on 11/07/17 1313 Atorvastatin Calcium (Atorvastatin Calcium) 80 Mg Tablet, 80 MG PO HS, (Reported) Entered as Reported by: ERIKA PAIZ on 07/11/16 1326 Cetirizine HCl (Cetirizine HCl) 10 Mg Tablet, 10 MG PO DAILY, (Reported) Entered as Reported by: SUZANNE MIRAMONTES on 02/17/22 1043 Clopidogrel Bisulfate (Plavix) 75 Mg Tablet, 75 MG PO DAILY, (Reported) Entered as Reported by: OXANA MONTILLA on 11/07/17 1313 Cyanocobalamin (Cyanocobalamin Injection) 1,000 Mcg/Ml Inj, 1,000 MCG IM WEEK, (Reported) Entered as Reported by: SUZANNE MIRAMONTES on 02/17/22 1043 Docusate Sodium (Stool Softener) 100 Mg Tablet, 100 MG PO TID, (Reported) Entered as Reported by: OXANA MONTILLA on 03/03/17 0928 Famotidine (Pepcid) 20 Mg Tablet, 20 MG PO BID Prescribed by: KATIA DAVIES on 02/18/22 1406 Folic Acid (Folic Acid) 1 Mg Tablet, 1 MG PO DAILY, (Reported) Entered as Reported by: SUZANNE MIRAMONTES on 02/17/22 1043 Gabapentin (Gabapentin) 300 Mg Capsule, 300 MG PO HS, (Reported) Entered as Reported by: ERIKA PAIZ on 07/11/16 1326 Glipizide (Glipizide) 10 Mg Tablet, 10 MG PO DAILY, (Reported) Entered as Reported by: ERIKA PAIZ on 07/11/16 1326 Hydrochlorothiazide (Hydrochlorothiazide) 12.5 Mg Tablet, 12.5 MG PO DAILY, (Reported) Entered as Reported by: SUZANNE MIRAMONTES on 02/17/22 1043 Hydrochlorothiazide (Hydrochlorothiazide) 12.5 Mg Tablet, 12.5 MG PO DAILY Prescribed by: RODRIGO PATTEN on 03/07/22 1540 Metformin HCl (Metformin HCl) 1,000 Mg Tablet, 1,000 MG PO BID WITH MEALS, (Reported) Entered as Reported by: ERIKA PAIZ on 07/11/16 1326 Metoprolol Tartrate (Metoprolol Tartrate) 100 Mg Tablet, 100 MG PO BID, (Reported) Entered as Reported by: ARIANNA SANDOVAL on 07/12/16 0804 Montelukast Sodium (Montelukast Sodium) 10 Mg Tablet, 10 MG PO HS, (Reported) Entered as Reported by: ERIKA PAIZ on 07/11/16 1326 Nitroglycerin (Nitroglycerin) 0.4 Mg Tab.subl, 0.4 MG SL PRN, (Reported) Entered as Reported by: SUZANNE MIRAMONTES on 02/17/22 1043 Pantoprazole Sodium (Protonix) 40 Mg Tablet.dr, 40 MG PO DAILY Prescribed by: KATIA DAVIES on 02/18/22 1405 Sucralfate (Carafate) 1 Gram Tablet, 1 GM PO QID Prescribed by: KATIA DAVIES on 02/18/22 1405 Review of Systems Review of Systems Constitutional: see HPI Unable to obtain from patient due to Altered mental status Past Tbfnzbv-Bgmouc-Wvlhzq Hx Immunizations Up To Date Tetanus Booster (TDap): Unknown PED Vaccines UTD: No First/Initial COVID19 Vaccinat: 2020 Second COVID19 Vaccination Hung: 2020 Third COVID19 Vaccination Date: 2020 Seasonal Allergies Seasonal Allergies: Yes Past Medical History Surgeries: Yes (HYDROCELECTOMY, SPERMATOCELE, JOINT REMOVED FROM TOE, BILAT ROTATOR CUFF) Coronary Stent, Vasectomy Respiratory: Yes (CHRONIC COUGH, HOME 02 PRN) Asthma, Sleep Apnea Currently Using CPAP: No (HADNT BEEN USING DO TO COUGHING) Currently Using BIPAP: No Cardiac: Yes (STENT) Coronary Artery Disease, High Cholesterol, Hypertension Neurological: No Reproductive Disorders: No Sexually Transmitted Disease: No HIV/AIDS: No Gastrointestinal: Yes Colitis, Chronic Constipation Musculoskeletal: Yes Degenerate Disk Disease, Chronic Back Pain Endocrine: Yes Diabetes, Non-Insulin dep Loss of Vision: Bilateral Hearing Impairment: Denies Cancer: Yes Lymphoma Did You Recieve Any Treatments: Yes What Type of Treatment Did You: Chemotherapy Psychosocial: No Integumentary: No Blood Disorders: No Adverse Reaction/Blood Tranf: No (N/A) Physical Exam Vital Signs Vital Signs - First Documented 05/29/22 08:40 Temp 34.1 Pulse 72 Resp 20 B/P (MAP) 128/65 (86) Pulse Ox 95 O2 Delivery Nasal Cannula O2 Flow Rate 2.00 Capillary Refill : Height, Weight, BMI Height: 5'7.50" Weight: 190lbs. 3.0oz. 86.118722el; 29.00 BMI Method:Stated General Appearance: WD/WN, no apparent distress HEENT: PERRL/EOMI, other (pinpoint pupils bilaterally 2mm - when I sternal rub him - he looks straight at me) Neck: normal inspection Respiratory: lungs clear, normal breath sounds, no respiratory distress, no accessory muscle use Cardiovascular: regular rate, rhythm Gastrointestinal: soft, other (guards against my exam voluntarily; large mid abdominal ventral hernia) Extremities: normal inspection Neurologic/Psychiatric: other (somnolent. no apparent facial droop; moves all 4 extremities equally - appears to respond to touch equally in all 4 sxtremities) Crainal Nerves: PERRL Motor/Sensory: no motor deficit, no sensory deficit Skin: pallor, other (cool) Progress/Results/Core Measures Results/Orders Lab Results Laboratory Tests Test 05/29/22 08:44 05/29/22 08:50 05/29/22 09:35 05/29/22 09:59 Range/Units Glucometer 107 146 H 111 H 70-110 MG/DL White Blood Count 13.4 H 4.3-11.0 10^3/uL Red Blood Count 3.07 L 4.30-5.52 10^6/uL Hemoglobin 8.7 L 13.3-17.7 g/dL Hematocrit 28 L 40-54 % Mean Corpuscular Volume 90 80-99 fL Mean Corpuscular Hemoglobin 28 25-34 pg Mean Corpuscular Hemoglobin Concent 32 32-36 g/dL Red Cell Distribution Width 18.5 H 10.0-14.5 % Platelet Count 285 130-400 10^3/uL Mean Platelet Volume 9.9 9.0-12.2 fL Immature Granulocyte % (Auto) 1 % Neutrophils (%) (Auto) 90 H 42-75 % Lymphocytes (%) (Auto) 5 L 12-44 % Monocytes (%) (Auto) 4 0-12 % Eosinophils (%) (Auto) 1 0-10 % Basophils (%) (Auto) 0 0-10 % Neutrophils # (Auto) 12.0 H 1.8-7.8 10^3/uL Lymphocytes # (Auto) 0.6 L 1.0-4.0 10^3/uL Monocytes # (Auto) 0.5 0.0-1.0 10^3/uL Eosinophils # (Auto) 0.2 0.0-0.3 10^3/uL Basophils # (Auto) 0.0 0.0-0.1 10^3/uL Immature Granulocyte # (Auto) 0.1 0.0-0.1 10^3/uL Neutrophils % (Manual) 90 % Lymphocytes % (Manual) 5 % Monocytes % (Manual) 3 % Eosinophils % (Manual) 2 % Toxic Granulation 2+ Hypochromasia SLIGHT Poikilocytosis SLIGHT Anisocytosis MODERATE Microcytosis SLIGHT Macrocytosis SLIGHT Crenated Cell SLIGHT Elliptocytes SLIGHT Prothrombin Time 13.8 12.2-14.7 SEC INR Comment 1.0 0.8-1.4 Activated Partial Thromboplast Time 23 L 24-35 SEC Sodium Level 139 135-145 MMOL/L Potassium Level 4.0 3.6-5.0 MMOL/L Chloride Level 111 H 98-107 MMOL/L Carbon Dioxide Level 16 L 21-32 MMOL/L Anion Gap 12 5-14 MMOL/L Blood Urea Nitrogen 26 H 7-18 MG/DL Creatinine 1.50 H 0.60-1.30 MG/DL Estimat Glomerular Filtration Rate 50 BUN/Creatinine Ratio 17 Glucose Level 127 H 70-105 MG/DL Calcium Level 7.9 L 8.5-10.1 MG/DL Corrected Calcium 8.7 8.5-10.1 MG/DL Total Bilirubin 0.3 0.1-1.0 MG/DL Aspartate Amino Transf (AST/SGOT) 16 5-34 U/L Alanine Aminotransferase (ALT/SGPT) 10 0-55 U/L Alkaline Phosphatase 83 40-136 U/L Total Protein 5.6 L 6.4-8.2 GM/DL Albumin 3.0 L 3.2-4.5 GM/DL Test 05/29/22 11:14 Range/Units Urine Color YELLOW Urine Clarity CLEAR Urine pH 5.5 5-9 Urine Specific [place] 1.015 L 1.016-1.022 Urine Protein NEGATIVE NEGATIVE Urine Glucose (UA) NEGATIVE NEGATIVE Urine Ketones TRACE H NEGATIVE Urine Nitrite NEGATIVE NEGATIVE Urine Bilirubin NEGATIVE NEGATIVE Urine Urobilinogen 0.2 < = 1.0 MG/DL Urine Leukocyte Esterase NEGATIVE NEGATIVE Urine RBC (Auto) NEGATIVE NEGATIVE Urine RBC NONE /HPF Urine WBC NONE /HPF Urine Crystals NONE /LPF Urine Bacteria NEGATIVE /HPF Urine Casts NONE /LPF Urine Mucus NEGATIVE /LPF Urine Culture Indicated NO My Orders Orders - RODRIGO PATTEN MD Naloxone Injection (Narcan Injection) (05/29/22 08:48) Ed Iv/Invasive Line Start (05/29/22 08:55) Cbc With Automated Diff (05/29/22 08:55) Ekg Tracing (05/29/22 08:55) Comprehensive Metabolic Panel (05/29/22 08:55) Protime With Inr (05/29/22 08:55) Partial Thromboplastin Time (05/29/22 08:55) Chest 1 View, Ap/Pa Only (05/29/22 08:55) Accucheck Stat ONCE (05/29/22 08:55) Ct Head Wo-R/O Stroke (05/29/22 08:55) Naloxone Injection (Narcan Injection) (05/29/22 09:00) Manual Differential (05/29/22 08:50) Ua Culture If Indicated (05/29/22 09:55) Accucheck Stat ONCE (05/29/22 09:55) Medications Given in ED Current Medications Medications Dose Ordered Sig/Sean Route Start Time Stop Time Status Last Admin Dose Admin Naloxone HCl 0.4 mg ONCE ONCE IV 05/29/22 09:00 05/29/22 09:01 DC 05/29/22 08:50 0.4 MG Vital Signs/I&O 05/29/22 08:40 Temp 34.1 Pulse 72 Resp 20 B/P (MAP) 128/65 (86) Pulse Ox 95 O2 Delivery Nasal Cannula O2 Flow Rate 2.00 Progress Progress Note : Time: 11:36 Progress Note Going to reassess the patient after in and out catheterization for urinalysis. The patient is lying under multiple blankets curled up on his right side. He is only mumbling "leave me alone" almost unintelligibly. He will not follow commands. He will not open his eyes. Vital signs remained stable. He is on 2 L of oxygen per nasal cannula. No distress is noted. We will proceed with urinalysis to attempt to find a source of infection potentially causing the symptoms. Discussed with Dr. Mina, patient has a leukocytosis, altered mental status, hypothermia. Presented with hypoglycemia in the setting of type 2 diabetes. No etiology of infection was discovered during this hospitalization. Urinalysis is clear, chest x-ray is negative. We will add blood cultures and a procalcitonin as well as a COVID test at this time. She did recommend Rocephin 1 g. maintains that the patient is still quite altered and not "himself". Will admit to ICU secondary to altered mental status. Dr. Veras will do qued'd orders Initial ECG Impression Date: May 29, 2022 Initial ECG Impression Time: 09:23 Initial ECG Rate: 73 Initial ECG Rhythm: Normal Sinus Initial ECG Intervals ME 159 QRS 101 Qtc 461 Comment Diffusely low voltage on this normal sinus EKG, no ST segment elevation or depression, no ectopy Diagnostic Imaging Diagonstic Imaging: Xray Plain Films/CT/US/NM/MRI: chest Comments [facility] [place], [place] NAME: JOCELYN DENNY [facility] REC#: [id number] PT STATUS: REG ER : 1950 PHYSICIAN: RODRIGO PATTEN MD ADMIT DATE: 05/29/22/ER Draft Date of Exam:05/29/22 CHEST 1 VIEW, AP/PA ONLY EXAM: CHEST 1 VIEW, AP/PA ONLY INDICATION: Altered mental status. COMPARISON: 03/07/2022. FINDINGS: Cardiomegaly. Stable mild bibasilar atelectasis or infiltrate. No pleural effusion or pneumothorax. No acute osseous findings. IMPRESSION: Stable cardiomegaly and mild bibasilar atelectasis or infiltrate. Dictated on workstation # [id number] Dict: 05/29/22 0938 Trans: 05/29/22 0941 [facility] [id number] Interpreted by: MCKAYLA ASKEW MD Electronically signed by: Diagonstic Imaging: CT Comments [facility] [place], [place] NAME: JOCELYN DENNY [facility] REC#: [id number] PT STATUS: REG ER : 1950 PHYSICIAN: RODRIGO PATTEN MD ADMIT DATE: 05/29/22/ER Signed Date of Exam:05/29/22 CT HEAD WO-R/O STROKE PROCEDURE: CT head wo r/o stroke. TECHNIQUE: Multiple contiguous axial images were obtained through the brain without the use of intravenous contrast. Auto Exposure Controls were utilized during the CT exam to meet ALARA standards for radiation dose reduction. INDICATION: Altered mental status. COMPARISON: None available. FINDINGS: No intracranial hyperdense hemorrhage or space-occupying mass. No hydrocephalus or midline shift. Encephalomalacia in the inferior left cerebellar hemisphere is indicative of old PICA territory infarct. No CT features of acute ischemia. Global atrophy is present. No hyperdense vessel sign. No skull fracture. IMPRESSION: 1. No acute intracranial hemorrhage or features of acute territorial infarct. 2. 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 Dictated by: Dictated on workstation # [id number] Dict: 05/29/22917 Trans: 05/29/22918 [facility] [id number] Interpreted by: EDEN HINTON MD Electronically signed by: EDEN HINTON MD 05/29/22918 Departure Communication (Admissions) Time/Spoke to Admitting Phy: 11:[address] Mina - will do que'd orders Impression Primary Impression: Hypoglycemia Additional Impressions: Altered mental status Qualified Codes: R41.82 - Altered mental status, unspecified Leukocytosis Qualified Codes: D72.829 - Elevated white blood cell count, unspecified Hypothermia Qualified Codes: T68.XXXA - Hypothermia, initial encounter Disposition: ADMITTED INPATIENT Condition: Stable Admissions Decision to Admit Reason: Admit from ER (General) Decision to Admit/Date: May 29, 2022 Time/Decision to Admit Time: 11:36 Departure-Patient Inst. Referrals: WILLIAM LOWE MD (PCP/Family) Primary Care Physician RODRIGO PATTEN MD May 29, 2022 09:00
[2022-05-29 09:01] LABS: BASOPHILS % (AUTO) 0 % (0-10); EOSINOPHILS # (AUTO) 0.2 10^3/uL (0.0-0.3); EOSINOPHILS % (AUTO) 1 % (0-10); HEMATOCRIT 28 % (40-54); HEMOGLOBIN 8.7 g/dL (13.3-17.7); LYMPHOCYTES # (AUTO) 0.6 10^3/uL (1.0-4.0); LYMPHOCYTES % (AUTO) 5 % (12-44); MEAN CORPUSCULAR HEMOGLOBIN 28 pg (25-34); MEAN CORPUSCULAR HGB CONC 32 g/dL (32-36); MEAN CORPUSCULAR VOLUME 90 fL (80-99); MEAN PLATELET VOLUME 9.9 fL (9.0-12.2); MONOCYTES # (AUTO) 0.5 10^3/uL (0.0-1.0); MONOCYTES % (AUTO) 4 % (0-12); NEUTROPHILS % (AUTO) 90 % (42-75); PLATELET COUNT 285 10^3/uL (130-400); WHITE BLOOD COUNT 13.4 10^3/uL (4.3-11.0)
--- NOTE | 2022-05-29 09:21 | Diagnostic Imaging Report ---
PROCEDURE: CT head wo r/o stroke. TECHNIQUE: Multiple contiguous axial images were obtained through the brain without the use of intravenous contrast. Auto Exposure Controls were utilized during the CT exam to meet ALARA standards for radiation dose reduction. INDICATION: Altered mental status. COMPARISON: None available. FINDINGS: No intracranial hyperdense hemorrhage or space-occupying mass. No hydrocephalus or midline shift. Encephalomalacia in the inferior left cerebellar hemisphere is indicative of old PICA territory infarct. No CT features of acute ischemia. Global atrophy is present. No hyperdense vessel sign. No skull fracture. IMPRESSION: 1. No acute intracranial hemorrhage or features of acute territorial infarct. 2. 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 Dictated by: Dictated on workstation # [id number]
[2022-05-29 09:23] LABS: CALCIUM 7.9 MG/DL (8.5-10.1)
[2022-05-29 09:24] LABS: TOTAL PROTEIN 5.6 GM/DL (6.4-8.2)
[2022-05-29 09:25] LABS: PROTHROMBIN TIME PATIENT 13.8 SEC (12.2-14.7)
[2022-05-29 09:26] LABS: BILIRUBIN,TOTAL 0.3 MG/DL (0.1-1.0)
[2022-05-29 09:27] LABS: CREATININE SERUM 1.5 MG/DL (0.60-1.30)
[2022-05-29 09:32] LABS: EOSINOPHILS % (MANUAL) 2 %; HYPOCHROMASIA SLIGHT; LYMPHOCYTES % (MANUAL) 5 %; MONOCYTES % (MANUAL) 3 %; NEUTROPHILS % (MANUAL) 90 %; POIKILOCYTOSIS SLIGHT
[2022-05-29 09:33] LABS: ANISOCYTOSIS MODERATE; CRENATED RBC SLIGHT; ELLIPT/OVALOCYTES SLIGHT; MICROCYTOSIS SLIGHT; TOXIC GRANULATION/VACUOLAZATIO 2+
--- NOTE | 2022-05-29 09:42 | Diagnostic Imaging Report ---
EXAM: CHEST 1 VIEW, AP/PA ONLY INDICATION: Altered mental status. COMPARISON: 03/07/2022. FINDINGS: Cardiomegaly. Stable mild bibasilar atelectasis or infiltrate. No pleural effusion or pneumothorax. No acute osseous findings. IMPRESSION: Stable cardiomegaly and mild bibasilar atelectasis or infiltrate. Dictated by: Dictated on workstation # [id number]
[2022-05-29 11:20] LABS: BILIRUBIN,URINE NEGATIVE (NEGATIVE); CLARITY,URINE CLEAR; COLOR,URINE YELLOW; GLUCOSE, URINE (UA) NEGATIVE (NEGATIVE); KETONES,URINE TRACE (NEGATIVE); LEUKOCYTE ESTERASE ,URINE NEGATIVE (NEGATIVE); NITRITE,URINE NEGATIVE (NEGATIVE); PH,URINE 5.5 (5-9); PROTEIN,URINE NEGATIVE (NEGATIVE)
[2022-05-29 11:26] LABS: BACTERIA,URINE NEGATIVE /HPF
[2022-05-29] MEDS ORDERED: NS IV 1000 ML 1,000 ML IV SCH (11:45)
--- NOTE | 2022-05-29 12:39 | History & Physical-Hospitalist ---
History of Present Illness HPI/Chief Complaint Patient is a 71-year-old male with past medical history of coronary artery disease, hypertension, hrg-rbnnoxc-lepurjgee diabetes type 2, lymphoma who presented to the emergency department due to altered mental status. He is unable to provide any history and thus all history is obtained from his who is at bedside. She states that for the past week he has had shoulder pain that she has been treating with topical menthol. He did see his primary care physician on the and was prescribed a muscle relaxer and hydrocodone. He was doing okay with that and was fishing yesterday. He has been taking his muscle relaxer at midnight so she woke him up last night for that and he was in his normal state. Then at 7:00 this morning she found him slouched in the recliner. She attempted to wake him but could not so called EMS. Upon EMS arrival they checked his blood sugar and found it to be 28. They gave him D5 and started D10 which brought his blood sugar up into the 300s. His mentation was briefly better but then quickly he became quite lethargic again. He was found to be hypothermic as well with a temperature of 34 C. His blood sugar improved with dextrose running but he was found to have likely pneumonia on his chest x-ray and is still quite altered so is being admitted to the ICU for further management. Date Seen 05/29/22 Time Seen by a Provider: 12:20 Attending Physician William Lowe MD PCP Admitting Physician: Attending Physician: Referring Physician Date of Admission Home Medications & Allergies Home Medications Reviewed patient Home Medication Reconciliation performed by pharmacy medication reconciliations master automotive technician and/or nursing. Patients Allergies have been reviewed. Allergies Allergies Coded Allergies LEE Inhibitors (Unverified Adverse Reaction, Mild, cough, 11/07/17) Past Qjaeweo-Jrfgdu-Vsedru Hx Patient Social History Marrital Status: Tobacco Use?: Yes Tobacco type used: Cigarettes Smoking Status: Current Everyday Smoker Substance use?: No Alcohol Use?: No Immunizations Up To Date Date of Influenza Vaccine: May 22, 2021 First/Initial COVID19 Vaccinat: 09/18/2020 Second COVID19 Vaccination Hung: 10/16/2020 Tetanus Booster (TDap): Unknown PED Vaccines UTD: No Date of Pneumonia Vaccine: Feb 25, 2013 Seasonal Allergies Seasonal Allergies: Yes Current Status Advance Directives: No Primary Language: Latvian Preferred Spoken Language: Latvian Past Medical History Surgeries: Coronary Stent, Vasectomy Asthma, Sleep Apnea Currently Using CPAP: No (HADNT BEEN USING DO TO COUGHING) Currently Using BIPAP: No Coronary Artery Disease, High Cholesterol, Hypertension Sexually Transmitted Disease: No HIV/AIDS: No Colitis, Chronic Constipation Degenerate Disk Disease, Chronic Back Pain Diabetes, Non-Insulin dep Loss of Vision: Bilateral Hearing Impairment: Denies Lymphoma Did You Recieve Any Treatments: Yes What Type of Treatment Did You: Chemotherapy Blood Disorders: No Adverse Reaction/Blood Tranf: No (N/A) Family Medical History Reviewed Nursing Family Hx No Pertinent Family Hx Review of Systems ROS-Unable to Obtain: altered mentation Constitutional: see HPI Physical Exam Physical Exam Vital Signs Vital Signs - First Documented 05/29/22 08:40 Temp 34.1 Pulse 72 Resp 20 B/P (MAP) 128/65 (86) Pulse Ox 95 O2 Delivery Nasal Cannula O2 Flow Rate 2.00 Capillary Refill : Less Than 3 Seconds Height, Weight, BMI Height: 5'7.50" Weight: 190lbs. 3.0oz. 86.292084np; 30.00 BMI Method:Stated General Appearance: Other (lethargic) HEENT: PERRL/EOMI; No Moist Mucous Membranes Respiratory: Lungs Clear, No Accessory Muscle Use, No Respiratory Distress Cardiovascular: Regular Rate, Rhythm, No JVD, No Murmur Gastrointestinal: Normal Bowel Sounds, Non Tender, Soft Neurologic/Psychiatric: Alert; No Motor Weakness; Other (appears quite drowsy and lethargic but does open his eyes to voice and follows commands, moves all extremities equally) Skin: Normal Color, Warm/Dry Results Results/Procedures Labs Laboratory Tests 05/29/22 08:50 Patient resulted labs reviewed. Imaging: Reviewed Imaging Report Imaging [facility] [place], [place] NAME: JOCELYN DENNY [facility] REC#: [id number] PT STATUS: REG ER : 1950 PHYSICIAN: RODRIGO PATTEN MD ADMIT DATE: 05/29/22/ER Draft Date of Exam:05/29/22 CHEST 1 VIEW, AP/PA ONLY EXAM: CHEST 1 VIEW, AP/PA ONLY INDICATION: Altered mental status. COMPARISON: 03/07/2022. FINDINGS: Cardiomegaly. Stable mild bibasilar atelectasis or infiltrate. No pleural effusion or pneumothorax. No acute osseous findings. IMPRESSION: Stable cardiomegaly and mild bibasilar atelectasis or infiltrate. Dictated on workstation # [id number] Dict: 05/29/22937 Trans: 05/29/22940 [facility] [id number] Interpreted by: MCKAYLA ASKEW MD Electronically signed by: [facility] [place] [place] NAME: JOCELYN DENNY [facility] REC#: [id number] PT STATUS: REG ER : 1950 PHYSICIAN: RODRIGO PATTEN MD ADMIT DATE: 05/29/22/ER Signed Date of Exam:05/29/22 CT HEAD WO-R/O STROKE PROCEDURE: CT head wo r/o stroke. TECHNIQUE: Multiple contiguous axial images were obtained through the brain without the use of intravenous contrast. Auto Exposure Controls were utilized during the CT exam to meet ALARA standards for radiation dose reduction. INDICATION: Altered mental status. COMPARISON: None available. FINDINGS: No intracranial hyperdense hemorrhage or space-occupying mass. No hydrocephalus or midline shift. Encephalomalacia in the inferior left cerebellar hemisphere is indicative of old PICA territory infarct. No CT features of acute ischemia. Global atrophy is present. No hyperdense vessel sign. No skull fracture. IMPRESSION: 1. No acute intracranial hemorrhage or features of acute territorial infarct. 2. 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 Dictated by: Dictated on workstation # [id number] Dict: 05/29/22917 Trans: 05/29/22918 [facility] [id number] Interpreted by: EDEN HINTON MD Electronically signed by: EDEN HINTON MD 05/29/22918 Assessment/Plan Admission Diagnosis Encephalopathy Admission Status: Inpatient Order (span 2 midnights) Assessment and Plan Severe Sepsis Encephalopathy Hypoglycemia Etiology not exactly clear Hypothermic with leukocytosis on arrival and questionable b/l infiltrates on CXR, procal elevated Cover with CAP coverage Received Narcan without improvement Could have had unwitnessed seizure from hypoglycemia and is postictal Will try to connect with ER nurse and see if he was incontinent on arrival Continue D51/2 and Q4 accuchecks REYES Continue IVF CAD HTN HLD Hold home meds for now due to mentation NIDDMI Hold home meds DVT ppx: SCDs Diagnosis/Problems Diagnosis/Problems (1) Severe sepsis (2) CAP (community acquired pneumonia) (3) CAD (coronary artery disease) (4) Non-insulin dependent type 2 diabetes mellitus (5) BPH (benign prostatic hyperplasia) (6) Essential (primary) hypertension (7) HLD (hyperlipidemia) (8) Hypothermia Status: Acute Qualifiers: Encounter type: initial encounter Qualified Codes: T68.XXXA - Hypothermia, initial encounter (9) Hypoglycemia Status: Acute (10) Altered mental status Status: Acute Qualifiers: Altered mental status type: unspecified Qualified Codes: R41.82 - Altered mental status, unspecified (11) Lymphoma Status: Acute Copy Copies To 1: WILLIAM LOWE MD, KATELYN M MD May 29, 2022 12:39
[2022-05-29] MEDS: cefTRIAXone 1 GM PRE-MIX 50 ML IV SCH (13:00)
[2022-05-29] MEDS ORDERED: cefTRIAXone 1 GM PRE-MIX 50 ML IV ONE (13:00)
[2022-05-29] MEDS ORDERED: ONDANSETRON 4 MG/2 ML (SDV) Z0FRAN IV PRN (13:15)
[2022-05-29] MEDS ORDERED: D5 1/2 NS 1000 ML IV SOLUTION 1,000 ML IV SCH ×2 (13:15→15:30)
[2022-05-29] MEDS ORDERED: ACETAMINOPHEN 325 MG TABLET PO PRN (13:15)
[2022-05-29 13:44] VITALS: BP 128/65
[2022-05-29] MEDS ORDERED: DEXTROSE 50% 50 ML (IMS) SYR ONE ×2 (14:18→23:11)
[2022-05-29] MEDS ORDERED: DEXTROSE 50% 50 ML (IMS) SYR IV ONE ×2 (14:30→23:30)
[2022-05-29] MEDS ORDERED: DEXTROSE 50% 50 ML (IMS) SYR IV NR (14:30)
[2022-05-29] MEDS ORDERED: TMSL.4C PO (14:54)
[2022-05-29] MEDS ORDERED: POTA10TA PO (14:54)
[2022-05-29] MEDS ORDERED: CALC600T80 PO (14:54)
[2022-05-29] MEDS ORDERED: RT-ALBUTEROL/IPRATROPIUM 3 ML (DUONEB) VIAL INH PRN (16:00)
--- NOTE | 2022-05-29 17:54 | Tele-ICU Consult ---
History of Present Illness History of Present Illness Date Seen by Provider: May 29, 2022 Time Seen by Provider: 17:53 Date of Admission . (Tele-ICU Physician , consultation) Service provided via interactive audio and video telecommunications E-CARE system to a patient admitted to ICU bed in [facility]. Available chart/ vitals / labs / Images reviewed H&P is from ER notes Patient's information available about PMH, Shx, Fhx allergy reviewed inEMR. ROS as per chart and RN report Now in ICU, hemodynamically stable Video assessment done using teleICU camera, rest of exam as per RN Discussed with RN. Consultants: Hospital course: (05/29) 71M Admitted with Hypoglycemia, AMS, and leukocytosis A/P Severe Sepsis Encephalopathy - probab;ly due to hypoglycemia and TME and medicattions effect - CTH - no acute changes - better now , follows commands Hypoglycemia ( with DM ) -D51/2 and Q1 accuchecks - hold meds , follow Hypothermica with leukocytosis , suspected CAP -suspected b/l infiltrates on CXR, procal elevated - ABX for CAP coverage REYES - hydration CAD- stable NIDDMI -Hold home meds Lines : periph, (Central Line Necessity Reviewed) [place]: OG: Nutrition: po Analgesia: Anxiety/ delirium VTE Prophylaxis: Stress Ulcer Prophylaxis: Plans in collaboration with bedside consultants and IM MDs. Discussed with RN to reach out if any questions or concerns A total of _32minutes of critical care time was devoted to this patient today, required to treat and/or prevent further deterioration of critical care condition ( as above ) . I am remotely monitoring this patient from another state. I am unable to do the bedside exam, and history/physical and pertinent information is taken from other notes in the computer and bedside staff. Allergies and Home Medications Allergies Coded Allergies: LEE Inhibitors (Unverified Adverse Reaction, Mild, cough, 11/07/17) Home Medications Aspirin 81 Mg Tablet.dr, 81 MG PO DAILY, (Reported) Atorvastatin Calcium 80 Mg Tablet, 80 MG PO HS, (Reported) Calcium Carbonate 600 Mg Calcium (1500 Mg) Tablet, 1,200 MG PO DAILY, (Reported) Cetirizine HCl 10 Mg Tablet, 10 MG PO DAILY, (Reported) Clopidogrel Bisulfate 75 Mg Tablet, 75 MG PO DAILY, (Reported) Cyanocobalamin 1,000 Mcg/Ml Inj, 1,000 MCG IM WEEK, (Reported) Docusate Sodium 100 Mg Tablet, 100 MG PO TID, (Reported) Famotidine 20 Mg Tablet, 20 MG PO BID Prescribed by: KATIA DAVIES on 02/18/22 1406 Folic Acid 1 Mg Tablet, 1 MG PO DAILY, (Reported) Gabapentin 300 Mg Capsule, 300 MG PO HS, (Reported) Glipizide 10 Mg Tablet, 10 MG PO DAILY, (Reported) Hydrochlorothiazide 12.5 Mg Tablet, 12.5 MG PO DAILY, (Reported) Hydrochlorothiazide 12.5 Mg Tablet, 12.5 MG PO DAILY Prescribed by: RODRIGO PATTEN on 03/07/22 1540 Metformin HCl 1,000 Mg Tablet, 1,000 MG PO BID WITH MEALS, (Reported) Metoprolol Tartrate 100 Mg Tablet, 100 MG PO BID, (Reported) Montelukast Sodium 10 Mg Tablet, 10 MG PO HS, (Reported) Nitroglycerin 0.4 Mg Tab.subl, 0.4 MG SL PRN, (Reported) Pantoprazole Sodium 40 Mg Tablet.dr, 40 MG PO DAILY Prescribed by: KATIA DAVIES on 02/18/22 1405 Potassium Chloride 10 Meq Tablet.er, 20 MEQ PO DAILY, (Reported) Sucralfate 1 Gram Tablet, 1 GM PO QID Prescribed by: KATIA DAVIES on 02/18/22 1405 Past Medical/Social/Family Hx Patient Social History Marrital Status: Tobacco Use?: Yes Tobacco type used: Cigarettes Smoking Status: Current Everyday Smoker Substance use?: No Alcohol Use?: No Pt stated abuse/neglect: No Immunizations Up To Date Influenza Vaccine Up-to-Date: Yes; Up-to-Date First/Initial COVID19 Vaccinat: 09/18/2020 Second COVID19 Vaccination Hung: 10/16/2020 Tetanus Booster (TDap): Unknown Date of Pneumonia Vaccine: Feb 25, 2013 Current Status Advance Directives: Yes Advance Directive Location: Home Communicates: Verbally Primary Language: Emirati Preferred Spoken Language: Emirati Is interpretation needed?: No Implanted or Applied Medical D: None Review of Systems Constitutional: see HPI Focused Exam Lactate Level 05/29/22 12:11: Lactic Acid Level 1.38 Height, Weight, BMI Height: 5'7.50" Weight: 190lbs. 3.0oz. 86.274112tx; 30.15 BMI Method:Stated Exam Exam Patient acknowledged, consented, and participated in this virtual visit which was conducted using real time audio/video Vital Signs Date Time Temp Pulse Resp B/P (MAP) Pulse Ox O2 Delivery O2 Flow Rate FiO2 05/29/22 17:00 70 17 129/55 (79) 99 Nasal Cannula 3.00 05/29/22 16:00 73 15 122/61 (81) 97 Nasal Cannula 3.00 05/29/22 15:33 36.6 05/29/22 15:00 89 13 113/59 (77) 99 Nasal Cannula 3.00 05/29/22 14:53 89 05/29/22 14:04 Nasal Cannula 3.00 05/29/22 14:00 86 29 132/68 (89) 100 Nasal Cannula 3.00 05/29/22 13:50 97 3.00 05/29/22 13:48 86 16 138/67 97 Nasal Cannula 3.00 05/29/22 13:44 34.1 72 95 28 05/29/22 08:40 34.1 72 20 128/65 (86) 95 Nasal Cannula 2.00 Height & Weight Height: 5'7.50" Weight: 190lbs. 3.0oz. 86.749933oe; 30.15 BMI Method:Stated General Appearance: No Apparent Distress, Other (lethargic) HEENT: PERRL/EOMI; No Moist Mucous Membranes Respiratory: Lungs Clear, No Accessory Muscle Use, No Respiratory Distress Cardiovascular: Regular Rate, Rhythm, No JVD, No Murmur Capillary Refill: Less Than 3 Seconds Gastrointestinal: soft, other (guards against my exam voluntarily; large mid abdominal ventral hernia) Neurologic/Psychiatric: Alert; No Motor Weakness; Other (appears quite drowsy and lethargic but does open his eyes to voice and follows commands, moves all extremities equally) Skin: Normal Color, Warm/Dry Results Lab Laboratory Tests 05/29/22 08:50 Assessment/Plan Assessment/Plan 1 SAMINA SMITH MD May 29, 2022 17:54
[2022-05-29] MEDS: RT-ALBUTEROL/IPRATROPIUM 3 ML (DUONEB) VIAL INH SCH ×2 (18:52→22:36)
[2022-05-29] MEDS: DEXTROSE 10% IV SOLUTION 1,000 ML IV SCH (21:18)
[2022-05-30] MEDS ORDERED: DEXTROSE 50% 50 ML (IMS) SYR ONE (01:42)
[2022-05-30] MEDS ORDERED: DEXTROSE 50% 50 ML (IMS) SYR IV ONE (01:45)
[2022-05-30] MEDS: RT-ALBUTEROL/IPRATROPIUM 3 ML (DUONEB) VIAL INH SCH ×5 (02:21→19:40)
[2022-05-30 04:42] LABS: BASOPHILS % (AUTO) 0 % (0-10); EOSINOPHILS # (AUTO) 0.2 10^3/uL (0.0-0.3); EOSINOPHILS % (AUTO) 2 % (0-10); HEMATOCRIT 24 % (40-54); HEMOGLOBIN 7.6 g/dL (13.3-17.7); LYMPHOCYTES % (AUTO) 9 % (12-44); MEAN CORPUSCULAR HEMOGLOBIN 28 pg (25-34); MEAN CORPUSCULAR HGB CONC 31 g/dL (32-36); MEAN CORPUSCULAR VOLUME 88 fL (80-99); MEAN PLATELET VOLUME 10.1 fL (9.0-12.2); MONOCYTES # (AUTO) 0.8 10^3/uL (0.0-1.0); MONOCYTES % (AUTO) 7 % (0-12); NEUTROPHILS % (AUTO) 82 % (42-75); PLATELET COUNT 291 10^3/uL (130-400)
[2022-05-30 04:52] LABS: ALBUMIN 2.5 GM/DL (3.2-4.5); POTASSIUM 3.8 MMOL/L (3.6-5.0)
[2022-05-30 04:54] LABS: CALCIUM 7.3 MG/DL (8.5-10.1)
[2022-05-30 04:55] LABS: TOTAL PROTEIN 4.7 GM/DL (6.4-8.2)
[2022-05-30 04:57] LABS: BILIRUBIN,TOTAL 0.3 MG/DL (0.1-1.0)
[2022-05-30 04:58] LABS: CREATININE SERUM 1.09 MG/DL (0.60-1.30)
[2022-05-30] MEDS ORDERED: NS IV 500 ML 500 ML IV PRN (06:30)
[2022-05-30] MEDS: MAGNESIUM 1 GM/100 ML IVPB 100 ML IV SCH ×4 (06:55→10:08)
[2022-05-30] MEDS: DEXTROSE 10% IV SOLUTION 1,000 ML IV SCH ×2 (06:55→19:16)
--- NOTE | 2022-05-30 08:51 | Physical Therapy Evaluation ---
PT Evaluation-General Medical Diagnosis Admission Date May 29, 2022 at 11:44 Medical Diagnosis: AMS, hypoglycemia Onset Date: May 29, 2022 Therapy Diagnosis Therapy Diagnosis: impaired mobility, strength Height/Weight Height (Feet): 5 Height (Inches): 7.50 Weight (Pounds): 190 Weight (Ounces): 3.0 Precautions Precautions/Isolations: Fall Prevention, Standard Precautions Weight Bear Status Right Lower Extremity: Right Weight Bearing/Tolerated Left Lower Extremity: Left Weight Bearing/Tolerated Referral Physician: Keeley Reason for Referral: Evaluation/Treatment Medical History Additional Medical History Past Medical History Surgeries: Yes (HYDROCELECTOMY, SPERMATOCELE, JOINT REMOVED FROM TOE, BILAT ROTATOR CUFF) Coronary Stent, Vasectomy Respiratory: Yes (CHRONIC COUGH, HOME 02 PRN) Asthma, Sleep Apnea Currently Using CPAP: No (HADNT BEEN USING DO TO COUGHING) Currently Using BIPAP: No Cardiac: Yes (STENT) Coronary Artery Disease, High Cholesterol, Hypertension Neurological: No Reproductive Disorders: No Sexually Transmitted Disease: No HIV/AIDS: No Gastrointestinal: Yes Colitis, Chronic Constipation Musculoskeletal: Yes Degenerate Disk Disease, Chronic Back Pain Endocrine: Yes Diabetes, Non-Insulin dep Loss of Vision: Bilateral Hearing Impairment: Denies Cancer: Yes Lymphoma Did You Recieve Any Treatments: Yes What Type of Treatment Did You: Chemotherapy Psychosocial: No Integumentary: No Blood Disorders: No Adverse Reaction/Blood Tranf: No (N/A) Reviewed History: Yes Social History Current Living Status: Spouse Entry Into Home: Stairs Without Railing PT Steps Into Home: 2 Prior Prior Level of Function SCALE: Activities may be completed with or without assistive devices. 5-Indvugcmpk-kaermmg completes the activity by him/herself with no assistance from a helper. 5-Set-up or Clean-up Assistance-helper sets up or cleans up; patient completes activity. [place] assists only prior to or following the activity. 4-Supervision or Touching Assistance-helper provides verbal cues and/or touching/steadying and/or contact guard assistance as patient completes activity. Assistance may be provided throughout the activity or intermittently. 3-Partial/Moderate Assistance-helper does LESS THAN HALF the effort. [place] lifts, holds or supports trunk or limbs, but provides less than half the effort. 2-Substantial/Maximal Assistance-helper does MORE THAN HALF the effort. [place] lifts or holds trunk or limbs and provides more than half the effort. 3-Pwdbqyauj-wgpwmf does ALL the effort. Patient does none of the effort to complete the activity. Or, the assistance of 2 or more helpers is required for the patient to complete the activity. If activity was not attempted, code reason: 7-Patient Refused. 9-Not Applicable-not attempted and the patient did not perform the activity before the current illness, exacerbation or injury. 10-Not Attempted due to Environmental Limitations-(lack of equipment, weather restraints, etc.). 88-Not Attempted due to Medical Conditions or Safety Concerns. Bed Mobility: 6 Transfers (B,C,W/C): 6 Gait: 6 Stairs: 6 Indoor Mobility (Ambulation): Independent Stairs: Independent PT Evaluation-Current Subjective Patient in bed pre tx, agrees to PT, has no complaints of pain. Pt/Family Goals to be independent at home Objective Patient Orientation: Person, Confused, Place, Situation Attachments: Oxygen, [place] Catheter, IV ROM/Strength ROM Lower Extremities WNL Strength Lower Extremities grossly 4/5 BLE Sensory Hearing: Functional Sensation Right Lower Extremit: Intact Sensation Left Lower Extremity: Intact Transfers Roll Left to Right (QC): 6 Lying to Sitting/Side of Bed(Q: 3 Sit to Stand (QC): 4 Chair/Sru-nd-Gyokz Xfer(QC): 4 Gait Distance: 5' Gait Assistive Device: FWW Comments/Gait Description very shaky, slightly unsteady but no LOB, cues for direction and safety Balance Sitting Static: Fair Sitting Dynamic: Fair Standing Static: Fair Standing Dynamic: Poor Treatment BLE seated exercises x20 (AP, LAQ) Assessment/Needs Patient in recliner post tx with nurse call, phone, tray, all needs met, chair alarm pad under patient, nurse notified about the need to find the other part of the chair alarm. Patient has impaired mobility, strength, min assist for supine to sit. Patient is slightly unsteady with ambulation but no josy LOB. Rehab Potential: Fair PT [facility] Goals Photographer'S Model Goals PT [facility] Goals Time Frame: Jun 06, 2022 Roll Left & Right (QC): 6 Sit to Lying (QC): 6 Lying-Sitting on Side/Bed(QC): 6 Sit to Stand (QC): 4 Chair/Xyi-fc-Tzzsh Xfer(QC): 4 Walk 10 feet (QC): 4 Walk 50ft with 2 Turns (QC): 4 Walk 150 ft (QC): 4 PT Plan Problem List Problem List: Activity Tolerance, Functional Strength, Safety, Balance, Gait, Transfer, Bed Mobility, ROM Treatment/Plan Treatment Plan: Continue Plan of Care Treatment Plan: Bed Mobility, Education, Functional Activity Liyah, Functional Strength, Gait, Safety, Therapeutic Exercise, Transfers Treatment Duration: Jun 06, 2022 Frequency: 6 times per week Estimated Hrs Per Day: .25 hour per day Patient and/or Family Agrees t: Yes Safety Risks/Education Patient Education: Gait Training, Transfer Techniques, Correct Positioning, Safety Issues Teaching Recipient: Patient Teaching Methods: Demonstration, Discussion Response to Teaching: Reinforcement Needed Discharge Recommendations Plan Patient will perform bed mobility and transfer training, balance and endurance training, functional strengthening, stair training, gait training, and education, to improve functional mobility and independence at home. Therapy Discharge Recommendati: Scheduled Assistance, Home & Family, Post Acute PT Time/GCodes Time In: 819 Time Out: 832 Total Billed Treatment Time: 13 Total Billed Treatment 1 visit FER POLANCO PT May 30, 2022 08:51
[2022-05-30] MEDS ORDERED: AZITHROMYCIN INJECTION 500 MG in NS (IVPB) 250 ML IV SCH (09:00)
[2022-05-30] MEDS ORDERED: PANTOPRAZOLE 40 MG (PROTONIX) VIAL IV NR (09:30)
[2022-05-30] MEDS: ENOXAPARIN 40 MG/0.4 ML (LOVENOX) SYR SC SCH (10:07)
--- NOTE | 2022-05-30 10:15 | Occupational Therapy Eval ---
OT Evaluation-General/PLF Medical Diagnosis Admission Date May 29, 2022 at 11:44 Medical Diagnosis: AMS, hypoglycemia Onset Date: May 29, 2022 Therapy Diagnosis Therapy Diagnosis: Reduced ADL status Height/Weight Height (Feet): 5 Height (Inches): 7.50 Weight (Pounds): 190 Weight (Ounces): 3.0 Precautions Precautions/Isolations: Fall Prevention, Standard Precautions Referral Physician: Keeley Referral Reason: Evaluation/Treatment Medical History Pertinent Medical History: CAD, DM, HTN Current History Pt came to ER with altered mental status and was found to have hypoglycemia. Pt lives with in a single story home. He was doing all ADLs and IADLs in dependently prior to hospitalization. Reviewed History: Yes Social History Home: Single Level Current Living Status: Spouse Entry Into Home: Stairs Without Railing Steps Into Home: 2 ADL-Prior Level of Function SCALE: Activities may be completed with or without assistive devices. 1-Qglqsctaxo-umwqnwf completes the activity by him/herself with no assistance from a helper. 5-Set-up or Clean-up Assistance-helper sets up or cleans up; patient completes activity. [place] assists only prior to or following the activity. 4-Supervision or Touching Assistance-helper provides verbal cues and/or touching/steadying and/or contact guard assistance as patient completes activity. Assistance may be provided throughout the activity or intermittently. 3-Partial/Moderate Assistance-helper does LESS THAN HALF the effort. [place] lifts, holds or supports trunk or limbs, but provides less than half the effort. 2-Substantial/Maximal Assistance-helper does MORE THAN HALF the effort. [place] lifts or holds trunk or limbs and provides more than half the effort. 1-Chbgaesjj-tpozhp does ALL the effort. Patient does none of the effort to complete the activity. Or, the assistance of 2 or more helpers is required for the patient to complete the activity. If activity was not attempted, code reason: 7-Patient Refused. 9-Not Applicable-not attempted and the patient did not perform the activity before the current illness, exacerbation or injury. 10-Not Attempted due to Environmental Limitations-(lack of equipment, weather restraints, etc.). 88-Not Attempted due to Medical Conditions or Safety Concerns. Self Care: Independent Functional Cognition: Independent DME/Equipment: Bath Chair, Shower Drive Self: No OT Current Status Subjective Pt sitting in recliner upon arrival. Pt initially agreed to therapy eval, but let answer most questions. He c/o of pain on the top of foot and at IV sites. He was very agitated during eval. Appearance Pt left sitting in recliner with all needs within reach. 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 Pt began stating that he was going to rip out his IV's unless taken out right then. Pt refused all skilled OT options and therapy eval was concluded due to agitation. RN notified of agitation and threats of pulling out IVs. Education OT Patient Education: Correct positioning, Reviewed precautions, Rehab process, Safety issues Teaching Recipient: Patient, Family Teaching Methods: Discussion OT Fitter/Welder Goals Fitter/Welder Goals Time Frame: Jun 10, 2022 Oral Hygiene (QC): 6 Toileting Hygiene (QC): 6 Shower/Bathe Self (QC): 5 Upper Body Dressing (QC): 6 Lower Body Dressing (QC): 6 On/Off Footwear (QC): 6 Additional Goals: 1-Demonstrate ADL Tasks, 2-Verbalize Understanding, 3- ImproveStrength/Liyah 1=Demonstrate adherence to instructed precautions during ADL tasks. 2=Patient will verbalize/demonstrate understanding of assistive devices/modifications for ADL. 3=Patient will improve strength/tolerance for activity to enable patient to perform ADL's. Goals made with accordance of base level/PLOF. OT Education/Plan Problem List/Assessment Assessment: Decreased Activ Tolerance, Decreased Safety Aware, Decreased UE Strength, Impaired Bed Mobility, Impaired Cognition, Impaired Coordination, Impaired Funct Balance, Impaired I ADL's, Impaired Self-Care Skills Discharge Recommendations Plan/Recommendations: Continue POC Comment ongoing assessment Treatment Plan/Plan of Care Patient would benefit from OT for education, treatment and training to promote independence in ADL's, mobility, safety and/or upper extremity function for ADL's. Plan of Care: ADL Retraining, Caregiver Training, Cognitive Retraining, Functional Mobility, Group Exercise/Act as Ind, UE Funct Exercise/Act Treatment Duration: Jun 10, 2022 Frequency: 3 times per week (3-5 x/week) Estimated Hrs Per Day: .25 hour per day Agreement: Yes Rehab Potential: Guarded Time/GCodes Start Time: 09:45 Stop Time: 09:53 Total Time Billed (hr/min): 8 Billed Treatment Time 1 visit Pham Fox OT May 30, 2022 10:15
--- NOTE | 2022-05-30 10:17 | Tele-ICU Progress Note ---
Subjective Date Seen by a Provider: May 30, 2022 Time Seen by a Provider: 10:17 Subjective/Events-last exam . (Tele-ICU Physician , Progress Note ) Service provided via interactive audio and video telecommunications E-CARE system to a patient admitted to ICU bed in [facility]. Available chart/ vitals / labs / Images reviewed Video assessment done using teleICU camera, rest of exam as per RN Discussed with RN Events overnight : Afebrile hemodynamically stable Respiratory - 3 l I/O = even Drips: d10 125 Pressors- no Consultants: Hospital course: (05/29) 71M Admitted with Hypoglycemia, AMS, and leukocytosis A/P Severe Sepsis - vital stable , Encephalopathy - probab;ly due to hypoglycemia and TME and medicattions effect - CTH - no acute changes - better now , follows commands Hypoglycemia ( with DM ) -D51/2- DECREASE RATE - and Q2 accuchecks - hold meds , follow - can take PO Hypothermia with leukocytosis , suspected CAP -suspected b/l infiltrates on CXR, procal elevated - ABX for CAP coverage REYES - hydration --> RESOVED CAD- stable NIDDMI -Hold home meds Anemia - delutionmal , no active bleed -PPI iv Lines : periph, (Central Line Necessity Reviewed) [place]: + OG: Nutrition: po Analgesia: Anxiety/ delirium VTE Prophylaxis: ajay 30 Stress Ulcer Prophylaxis: PPI Plans in collaboration with bedside consultants and IM MDs. Discussed with RN to reach out if any questions or concerns A total of 25 minutes of critical care time was devoted to this patient today, required to treat and/or prevent further deterioration of critical care condition ( as above ) . I am remotely monitoring this patient from another state. I am unable to do the bedside exam, and history/physical and pertinent information is taken from other notes in the computer and bedside staff. Sepsis Event Evaluation Height, Weight, BMI Height: 5'7.50" Weight: 190lbs. 3.0oz. 86.455683cq; 30.15 BMI Method:Stated Focused Exam Lactate Level 05/29/22 12:11: Lactic Acid Level 1.38 Exam Exam Patient acknowledged, consented, and participated in this virtual visit which was conducted using real time audio/video Vital Signs Date Time Temp Pulse Resp B/P (MAP) Pulse Ox O2 Delivery O2 Flow Rate FiO2 05/30/22 08:04 36.6 05/30/22 08:00 68 19 134/61 (85) 95 Nasal Cannula 3.00 05/30/22 07:02 62 05/30/22 07:00 64 17 132/63 (86) 96 Nasal Cannula 3.00 05/30/22 06:59 93 Room Air 05/30/22 06:00 72 119/59 (79) 91 Nasal Cannula 3.00 05/30/22 05:00 74 12 135/65 (88) 96 Nasal Cannula 3.00 05/30/22 04:00 73 9 125/51 (83) 95 Nasal Cannula 3.00 05/30/22 04:00 95 3.00 05/30/22 04:00 38.1 05/30/22 03:42 96 Nasal Cannula 2.00 05/30/22 03:00 62 19 116/51 (77) 96 Nasal Cannula 3.00 05/30/22 02:00 74 19 135/63 (92) 95 Nasal Cannula 3.00 05/30/22 01:00 82 05/30/22 01:00 91 24 117/60 (79) 93 Nasal Cannula 3.00 05/30/22 00:00 75 28 121/51 (85) 97 Nasal Cannula 3.00 05/30/22 00:00 95 3.00 05/29/22 23:00 74 26 122/53 (81) 98 Nasal Cannula 3.00 05/29/22 22:00 81 8 138/59 (112) 96 Nasal Cannula 3.00 05/29/22 21:06 73 18 147/62 (90) 96 Nasal Cannula 3.00 05/29/22 20:06 78 8 125/58 (80) 92 Nasal Cannula 3.00 05/29/22 20:00 95 3.00 05/29/22 19:29 37.1 05/29/22 19:06 93 28 108/61 (77) 97 Nasal Cannula 3.00 05/29/22 19:00 73 05/29/22 18:52 9 Nasal Cannula 2.00 05/29/22 18:00 83 14 152/85 (107) 97 Nasal Cannula 3.00 05/29/22 17:00 70 17 129/55 (79) 99 Nasal Cannula 3.00 05/29/22 16:00 73 15 122/61 (81) 97 Nasal Cannula 3.00 05/29/22 15:33 36.6 05/29/22 15:00 89 13 113/59 (77) 99 Nasal Cannula 3.00 05/29/22 14:53 89 05/29/22 14:04 Nasal Cannula 3.00 05/29/22 14:00 86 29 132/68 (89) 100 Nasal Cannula 3.00 05/29/22 13:50 97 3.00 05/29/22 13:48 86 16 138/67 97 Nasal Cannula 3.00 05/29/22 13:44 34.1 72 95 28 I & O 05/30/22 07:00 Intake Total 3000 ml Output Total 2650 ml Balance 350 ml Height & Weight Height: 5'7.50" Weight: 190lbs. 3.0oz. 86.586421ad; 30.15 BMI Method:Stated General Appearance: No Apparent Distress, Other (lethargic) HEENT: PERRL/EOMI; No Moist Mucous Membranes Respiratory: Lungs Clear, No Accessory Muscle Use, No Respiratory Distress Cardiovascular: Regular Rate, Rhythm, No JVD, No Murmur Capillary Refill: Less Than 3 Seconds Gastrointestinal: soft, other (guards against my exam voluntarily; large mid abdominal ventral hernia) Neurologic/Psychiatric: Alert; No Motor Weakness; Other (appears quite drowsy and lethargic but does open his eyes to voice and follows commands, moves all extremities equally) Skin: Normal Color, Warm/Dry Results Lab Laboratory Tests 05/29/22 08:50 05/30/22 03:45 Assessment/Plan Assessment/Plan 1 SAMINA SMITH MD May 30, 2022 10:17
[2022-05-30] MEDS ORDERED: BUME1TAB8 PO (11:07)
[2022-05-30] MEDS ORDERED: NITR0.4T39 SL (11:07)
[2022-05-30] MEDS ORDERED: GLIP10TA24 PO (11:07)
[2022-05-30] MEDS ORDERED: CLOP75TA28 PO (11:07)
[2022-05-30] MEDS ORDERED: GABA300C PO (11:07)
[2022-05-30] MEDS ORDERED: ASPI-1238 PO (11:07)
[2022-05-30] MEDS ORDERED: HYDR-3820 PO (11:07)
[2022-05-30] MEDS ORDERED: DOCU250C11 PO (11:07)
[2022-05-30] MEDS ORDERED: PANT40TA52 PO (11:07)
[2022-05-30] MEDS: NICOTINE 21 MG (NICODERM) PATCH TD SCH (11:21)
[2022-05-30] MEDS: cefTRIAXone 1 GM PRE-MIX 50 ML IV SCH (15:41)
[2022-05-30 16:00] VITALS: BP 157/72
[2022-05-30 19:31] VITALS: BP 147/70
[2022-05-30] MEDS: PANTOPRAZOLE 40 MG (PROTONIX) TAB PO SCH (19:53)
--- NOTE | 2022-05-30 20:43 | Progress Note - Hospitalist ---
Subjective HPI/CC On Admission Date Seen by Provider: May 30, 2022 Time Seen by Provider: 09:10 Patient is a 71-year-old male with past medical history of coronary artery disease, hypertension, cur-ucojnrz-kqfbiocht diabetes type 2, lymphoma who presented to the emergency department due to altered mental status. He is unable to provide any history and thus all history is obtained from his who is at bedside. She states that for the past week he has had shoulder pain that she has been treating with topical menthol. He did see his primary care physician on the and was prescribed a muscle relaxer and hydrocodone. He was doing okay with that and was fishing yesterday. He has been taking his muscle relaxer at midnight so she woke him up last night for that and he was in his normal state. Then at 7:00 this morning she found him slouched in the recliner. She attempted to wake him but could not so called EMS. Upon EMS arrival they checked his blood sugar and found it to be 28. They gave him D5 and started D10 which brought his blood sugar up into the 300s. His mentation was briefly better but then quickly he became quite lethargic again. He was found to be hypothermic as well with a temperature of 34 C. His blood sugar improved with dextrose running but he was found to have likely pneumonia on his chest x-ray and is still quite altered so is being admitted to the ICU for further management. Subjective/Events-last exam He is sitting in his chair. He denies pain. He denies shortness of breath. He says he is feeling better. He is sleepy and falls asleep during my visit. His is at the bedside. Focused Exam Lactate Level 05/29/22 12:11: Lactic Acid Level 1.38 Objective Exam Vital Signs Vital Signs Date Time Temp Pulse Resp B/P (MAP) Pulse Ox O2 Delivery O2 Flow Rate FiO2 05/30/22 19:31 37.1 75 19 147/70 (95) 94 Room Air 05/30/22 11:00 3.00 05/29/22 13:44 28 Capillary Refill : Less Than 3 Seconds General Appearance: No Apparent Distress, WD/WN Respiratory: Lungs Clear, No Respiratory Distress Cardiovascular: Regular Rate, Rhythm, No Murmur Gastrointestinal: Normal Bowel Sounds, Non Tender, Soft Extremity: Normal Inspection, No Pedal Edema Neurologic/Psychiatric: Alert, Normal Mood/Affect Skin: Normal Color, Warm/Dry Results/Procedures Lab Laboratory Tests 05/30/22 03:45 Patient resulted labs reviewed. Imaging: Reviewed Imaging Report Assessment/Plan Assessment and Plan Assess & Plan/Chief Complaint Severe Sepsis Pneumonia Continue IV antibiotics REYES T2DM with hypoglycemia IV fluids Hold glipizide CAD HTN HLD Resume home meds DVT ppx: SCDs Diagnosis/Problems Diagnosis/Problems (1) Severe sepsis Status: Acute (2) Pneumonia Status: Acute (3) Hypoglycemia Status: Acute (4) REYES (acute kidney injury) Status: Acute SEVERIANO LAZO MD May 30, 2022 20:43
[2022-05-30] MEDS ORDERED: ASPIRIN E.C. 81 MG (ECOTRIN) TAB PO SCH (21:00)
[2022-05-30] MEDS ORDERED: TAMSULOSIN 0.4 MG (FLOMAX) CAP PO SCH (21:00)
[2022-05-30] MEDS ORDERED: MONTELUKAST 10 MG (SINGULAIR) TAB PO SCH (21:00)
[2022-05-31 00:19] VITALS: BP 186/77
[2022-05-31 04:02] VITALS: BP 186/77
[2022-05-31] MEDS ORDERED: amLODIPine 5 MG (NORVASC) TAB PO ONE (05:30)
[2022-05-31 05:32] LABS: BASOPHILS % (AUTO) 1 % (0-10); EOSINOPHILS # (AUTO) 0.4 10^3/uL (0.0-0.3); EOSINOPHILS % (AUTO) 5 % (0-10); HEMATOCRIT 27 % (40-54); HEMOGLOBIN 7.9 g/dL (13.3-17.7); LYMPHOCYTES # (AUTO) 0.9 10^3/uL (1.0-4.0); LYMPHOCYTES % (AUTO) 11 % (12-44); MEAN CORPUSCULAR HEMOGLOBIN 28 pg (25-34); MEAN CORPUSCULAR HGB CONC 30 g/dL (32-36); MEAN CORPUSCULAR VOLUME 96 fL (80-99); MEAN PLATELET VOLUME 10.5 fL (9.0-12.2); MONOCYTES # (AUTO) 0.6 10^3/uL (0.0-1.0); MONOCYTES % (AUTO) 8 % (0-12); NEUTROPHILS % (AUTO) 75 % (42-75); PLATELET COUNT 159 10^3/uL (130-400); WHITE BLOOD COUNT 7.9 10^3/uL (4.3-11.0)
[2022-05-31 05:53] LABS: ALBUMIN 2.4 GM/DL (3.2-4.5); BILIRUBIN,TOTAL 0.3 MG/DL (0.1-1.0); CREATININE SERUM 0.94 MG/DL (0.60-1.30); MAGNESIUM 1.7 MG/DL (1.6-2.4); TOTAL PROTEIN 4.8 GM/DL (6.4-8.2)
[2022-05-31] MEDS ORDERED: POTASSIUM CL 10MEQ/50ML IVPB 50 ML IV SCH (06:00)
[2022-05-31] MEDS ORDERED: KCL 20 MEQ TAB (K-DUR) PO SCH (06:00)
[2022-05-31] MEDS ORDERED: MAGNESIUM 1 GM/100 ML IVPB 100 ML IV SCH (06:00)
[2022-05-31] MEDS: MAGNESIUM 1 GM/100 ML IVPB 100 ML IV SCH ×2 (06:22→07:47)
[2022-05-31] MEDS ORDERED: RT-ALBUTEROL/IPRATROPIUM 3 ML (DUONEB) VIAL INH SCH (07:00)
[2022-05-31 07:30] VITALS: BP 176/76
[2022-05-31] MEDS: NICOTINE 21 MG (NICODERM) PATCH TD SCH (08:10)
[2022-05-31] MEDS: PANTOPRAZOLE 40 MG (PROTONIX) TAB PO SCH (08:11)
[2022-05-31] MEDS ORDERED: NICOTINE PATCH REMOVAL TP SCH (08:59)
[2022-05-31] MEDS ORDERED: meTOprolol TARTRATE 50 MG (LOPRESSOR) TAB PO SCH (09:00)
[2022-05-31] MEDS ORDERED: CLOPIDOGREL 75 MG (PLAVIX) TABLET PO SCH (09:00)
[2022-05-31] MEDS ORDERED: AZITHROMYCIN 250 MG TAB (ZITHROMAX) PO SCH (09:00)
[2022-05-31] MEDS ORDERED: FOLIC ACID 1 MG TAB PO SCH (09:00)
[2022-05-31] MEDS ORDERED: amLODIPine 5 MG (NORVASC) TAB PO SCH ×2 (09:00)
[2022-05-31] MEDS ORDERED: LORATADINE (CLARITIN) 10 MG TAB PO SCH (09:00)
[2022-05-31] MEDS: ENOXAPARIN 40 MG/0.4 ML (LOVENOX) SYR SC SCH (09:03)
--- NOTE | 2022-05-31 09:12 | Occupational Ther Daily Note ---
OT Current Status-Daily Note Subjective Pt laying in bed at incline, alert. Pt agrees to therapy. Pt c/o no pain. Mental Status/Objective Patient Orientation: Person, Place, Time, Situation Attachments: IV ADL-Treatment Therapy Code Descriptions/Definitions Functional [place] Measure: 0=Not Assessed/NA 4=Minimal Assistance 1=Total Assistance 5=Supervision or Setup 2=Maximal Assistance 6=Modified [place] 3=Moderate Assistance 7=Complete IndependenceSCALE: Activities may be completed with or without assistive devices. 1-Bnosakfzsd-fcnwpcl completes the activity by him/herself with no assistance from a helper. 5-Set-up or Clean-up Assistance-helper sets up or cleans up; patient completes activity. [place] assists only prior to or following the activity. 4-Supervision or Touching Assistance-helper provides verbal cues and/or touching/steadying and/or contact guard assistance as patient completes activity. Assistance may be provided throughout the activity or intermittently. 3-Partial/Moderate Assistance-helper does LESS THAN HALF the effort. [place] lifts, holds or supports trunk or limbs, but provides less than half the effort. 2-Substantial/Maximal Assistance-helper does MORE THAN HALF the effort. [place] lifts or holds trunk or limbs and provides more than half the effort. 4-Wiinbsgtk-qwwdnu does ALL the effort. Patient does none of the effort to complete the activity. Or, the assistance of 2 or more helpers is required for the patient to complete the activity. If activity was not attempted, code reason: 7-Patient Refused. 9-Not Applicable-not attempted and the patient did not perform the activity before the current illness, exacerbation or injury. 10-Not Attempted due to Environmental Limitations-(lack of equipment, weather restraints, etc.). 88-Not Attempted due to Medical Conditions or Safety Concerns. Other Treatment Pt completed 5 different arm exercises in reps of 10 each with theraband. Pt required no breaks between reps and completed all exercises independently after skilled education and visual demonstration. Pt at EOB at end of session with call light/phone in reach. All needs met in room. Education OT Patient Education: Home exercise program Teaching Recipient: Patient Teaching Methods: Demonstration Response to Teaching: Return Demonstration OT Conference Planning Manager Goals Conference Planning Manager Goals Time Frame: Jun 10, 2022 Oral Hygiene (QC): 6 Toileting Hygiene (QC): 6 Shower/Bathe Self (QC): 5 Upper Body Dressing (QC): 6 Lower Body Dressing (QC): 6 On/Off Footwear (QC): 6 Additional Goals: 1-Demonstrate ADL Tasks, 2-Verbalize Understanding, 3- ImproveStrength/Liyah 1=Demonstrate adherence to instructed precautions during ADL tasks. 2=Patient will verbalize/demonstrate understanding of assistive devices/modifications for ADL. 3=Patient will improve strength/tolerance for activity to enable patient to perform ADL's. OT Education/Plan Problem List/Assessment Assessment: Decreased Activ Tolerance Discharge Recommendations Plan/Recommendations: Continue POC Treatment Plan/Plan of Care Patient would benefit from OT for education, treatment and training to promote independence in ADL's, mobility, safety and/or upper extremity function for ADL's. Plan of Care: ADL Retraining, Caregiver Training, Cognitive Retraining, Functional Mobility, Group Exercise/Act as Ind, UE Funct Exercise/Act Treatment Duration: Jun 10, 2022 Frequency: 3 times per week (3-5 x/week) Estimated Hrs Per Day: .25 hour per day Agreement: Yes Rehab Potential: Guarded Time/GCodes Start Time: 08:30 Stop Time: 08:41 Total Time Billed (hr/min): 11 Billed Treatment Time 1 visit EX 1 (11 min) LORENA CATES May 31, 2022 09:12
[2022-05-31] MEDS ORDERED: AMLO-251 PO (10:10)
[2022-05-31] MEDS ORDERED: CEFD300C3 PO (10:10)
--- NOTE | 2022-05-31 10:24 | Physical Therapy Daily Note ---
PT Daily Note-Current Subjective Patient in bed pre-tx,, reports no pain, agrees to PT. Pain Section J - Health Conditions 1. Rarely or not at all 2. Occasionally 3. Frequently 4. Almost constantly 8. Unable to answer Pain Effect on Sleep: 1 Pain Interference with Therapy: 1 Pain Interference w/Day-to-Day: 1 Appearance Patient sitting at edge of bed with post-tx with nurse call, phone, and all needs met. Mental Status Patient Orientation: Person, Place, Situation Attachments: IV Transfers SCALE: Activities may be completed with or without assistive devices. 6-Zkroawnpwe-zknyppl completes the activity by him/herself with no assistance from a helper. 5-Set-up or Clean-up Assistance-helper sets up or cleans up; patient completes activity. [place] assists only prior to or following the activity. 4-Supervision or Touching Assistance-helper provides verbal cues and/or touching/steadying and/or contact guard assistance as patient completes activity. Assistance may be provided throughout the activity or intermittently. 3-Partial/Moderate Assistance-helper does LESS THAN HALF the effort. [place] lifts, holds or supports trunk or limbs, but provides less than half the effort. 2-Substantial/Maximal Assistance-helper does MORE THAN HALF the effort. [place] lifts or holds trunk or limbs and provides more than half the effort. 9-Gfjfuvujt-treevf does ALL the effort. Patient does none of the effort to complete the activity. Or, the assistance of 2 or more helpers is required for the patient to complete the activity. If activity was not attempted, code reason: 7-Patient Refused. 9-Not Applicable-not attempted and the patient did not perform the activity before the current illness, exacerbation or injury. 10-Not Attempted due to Environmental Limitations-(lack of equipment, weather restraints, etc.). 88-Not Attempted due to Medical Conditions or Safety Concerns. Sit to Lying (QC): 6 Lying to Sitting/Side of Bed(Q: 6 Sit to Stand (QC): 4 SBA for sit to stand Weight Bearing Right Lower Extremity: Right Weight Bearing/Tolerated Left Lower Extremity: Left Weight Bearing/Tolerated Gait Training Does the Patient Walk?: Yes Distance: 400ft Walk 10 feet (QC): 4 Walk 50 ft with 2 Turns(QC): 4 Walk 150 ft (QC): 4 Gait Persons Needed: 1 Gait Assistive Device: FWW Patient walking normal gait speed, great step through pattern, good foot clearance, a little unsteady on turning, mostly SBA except CGA on turns. Wheelchair Training Does the Pt Use a Wheelchair?: No Exercises Seated Therapy Exercises: Long arc quads, Glut set Seated Reps: 10 Standing: Heel/toe raises (with walker in front) Standing Reps: 10 Treatments BLE strengthening, Ambulation Assessment Current Status: Good Progress Patient looked and moved a lot better today, able to stand up and walk a lot compared to just transferring from bed to chair last visit. Patient's endurance is better and was not SOB while walking. Patient still needs to be reminded of the IV line when moving around and sitting. Patient slightly impulsive with actions before PT ready to move. PT Detention Goals Detention Goals PT Detention Goals Time Frame: Jun 06, 2022 Roll Left & Right (QC): 6 Sit to Lying (QC): 6 Lying-Sitting on Side/Bed(QC): 6 Sit to Stand (QC): 4 Chair/Gub-mh-[place]ak[place] Xfer(QC): 4 Walk 10 feet (QC): 4 Walk 50ft with 2 Turns (QC): 4 Walk 150 ft (QC): 4 PT Plan Problem List Problem List: Activity Tolerance, Functional Strength, Safety, Balance, Gait, Transfer, Bed Mobility Treatment/Plan Treatment Plan: Continue Plan of Care Treatment Plan: Bed Mobility, Education, Functional Activity [place], Functional Strength, Gait, Safety, Therapeutic Exercise, Transfers Treatment Duration: Jun 06, 2022 Frequency: 6 times per week Estimated Hrs Per Day: .25 hour per day Patient and/or Family Agrees t: Yes Safety Risks/Education Patient Education: Gait Training, Transfer Techniques, Correct Positioning, Safety Issues Teaching Recipient: Patient Teaching Methods: Demonstration, Discussion Response to Teaching: Reinforcement Needed Time Time In: 945 Time Out: 958 Total Billed Treatment Time: 13 Total Billed Treatment 1 visit FA 13min FER COLLAZO PT May 31, 2022 10:23
[2022-05-31] MEDS: DEXTROSE 10% IV SOLUTION 1,000 ML IV SCH (11:04)
[2022-05-31 11:06] VITALS: BP 176/76
--- NOTE | 2022-05-31 18:16 | Discharge Summary ---
Discharge Summary Reconcile Patient Problems Problems Reviewed?: Yes Instructions for Patient Via [place] [place], Assessment/Instructions See instructions Physician to follow Patient: Cosmo Discharge Diet for Home: ADA Diet Hospital Course Date of Admission: May 29, 2022 at 11:44 Admission Diagnosis : Severe sepsis due to pneumonia Family Physician/Provider: William Wilburn MD Date of Discharge: 05/31/22 Discharge Diagnosis: Severe sepsis due to pneumonia, T2DM with hypoglycemia Hospital Course: Sriram Garner is a 71 year old male who was admitted with severe sepsis due to pneumonia. He was started on IV fluids and antibiotics and improved. He had an acute kidney injury which improved with fluids. He also had issues with hypoglycemia. This was thought to be due to a combination of sulfonylurea use and dehydration. His Glipizide was stopped. He was continued on Metformin. He will complete a course of Omnicef as an outpatient. He was started on Amlodipine due to hypertension. He was discharged home in stable condition. He was referred to home health care on discharge. He should follow up with Dr. Wilburn in about a week. He was discharged home in stable condition. Labs and Pending Lab Test: Laboratory Tests 05/30/22 20:20: Glucometer 172H 05/31/22 00:22: Glucometer 137H 05/31/22 04:06: Glucometer 137H 05/31/22 05:25: White Blood Count 7.9, Red Blood Count 2.79L, Hemoglobin 7.9L, Hematocrit 27L, Mean Corpuscular Volume 96, Mean Corpuscular Hemoglobin 28, Mean Corpuscular Hemoglobin Concent 30L, Red Cell Distribution Width 18.7H, Platelet Count 159, Mean Platelet Volume 10.5, Immature Granulocyte % (Auto) 0, Neutrophils (%) (Auto) 75, Lymphocytes (%) (Auto) 11L, Monocytes (%) (Auto) 8, Eosinophils (%) (Auto) 5, Basophils (%) (Auto) 1, Neutrophils # (Auto) 6.0, Lymphocytes # (Auto) 0.9L, Monocytes # (Auto) 0.6, Eosinophils # (Auto) 0.4H, Basophils # (Auto) 0.0, Immature Granulocyte # (Auto) 0.0, Sodium Level 137, Potassium Level 4.0, Chloride Level 113H, Carbon Dioxide Level 13L, Anion Gap 11, Blood Urea Nitrogen 10, Creatinine 0.94, Estimat Glomerular Filtration Rate 88, BUN/Creatinine Ratio 11, Glucose Level 135H, Calcium Level 8.0L, Corrected Calcium 9.3, Magnesium Level 1.7, Total Bilirubin 0.3, Aspartate Amino Transf (AST/SGOT) 21, Alanine Aminotransferase (ALT/SGPT) 17, Alkaline Phosphatase 77, Total Protein 4.8L, Albumin 2.4L 05/31/22 07:34: Glucometer 140H Microbiology 05/29/22 Blood Culture - Preliminary, Resulted No growth 05/29/22 MRSA Screen - Final, Complete MRSA not isolated Home Meds Active Cefdinir 300 Mg Capsule 300 Mg PO BID 5 Days Amlodipine Besylate 10 Mg Tablet 10 Mg PO DAILY 30 Days Reported Nitroglycerin 0.4 Mg Tab.subl 0.4 Mg SL UD PRN Bumetanide 1 Mg Tablet 1 Mg PO DAILY Pantoprazole Sodium 40 Mg Tablet.dr 40 Mg PO DAILY Hydrocodone-Acetamin 10-325 mg (Hydrocodone/Acetaminophen) 10 Mg-325 Mg Tablet 1 Ea PO Q8H PRN Clopidogrel (Clopidogrel Bisulfate) 75 Mg Tablet 75 Mg PO DAILY Aspirin EC (Aspirin) 81 Mg Tablet.dr 81 Mg PO HS Docusate Sodium 250 Mg Capsule 250 Mg PO BID Neurontin (Gabapentin) 300 Mg Capsule 300 Mg PO 0800,1700,2200 Flomax (Tamsulosin HCl) 0.4 Mg Cap 0.4 Mg PO HS Calcium Carbonate 600 Mg Calcium (1500 Mg) Tablet 600 Mg PO BID K-Tab ER (Potassium Chloride) 10 Meq Tablet.er 10 Meq PO BID Folic Acid 1 Mg Tablet 1 Mg PO DAILY Cyanocobalamin Injection (Cyanocobalamin) 1,000 Mcg/Ml Inj 1,000 Mcg IM MONTHLY Cetirizine HCl 10 Mg Tablet 10 Mg PO DAILY Metoprolol Tartrate 100 Mg Tablet 100 Mg PO BID Montelukast Sodium 10 Mg Tablet 10 Mg PO HS Metformin HCl 1,000 Mg Tablet 2,000 Mg PO HS TAKES 2 (1000MG) TABS Atorvastatin Calcium 80 Mg Tablet 80 Mg PO HS Patient Allergies: Coded Allergies: LEE Inhibitors (Unverified Adverse Reaction, Mild, cough, 11/07/17) Height (Feet): 5 Height (Inches): 7.50 Weight (Pounds): 190 Weight (Ounces): 3.0 Home Health Need/Face to Face Date of Face to Face: May 31, 2022 Clinical Findings: Generalized weakness and fatigue, Muscle weakness I have seen Pt euvh-fv-[id number]: Yes Discharged To: Home Diagnosis/Conditions: T2DM PNA HTN Anemia Problems/Diagnosis/Condition: (1) T2DM (type 2 diabetes mellitus) (2) HTN (hypertension) (3) Anemia (4) PNA (pneumonia) Patient is Homebound due to: Muscle weakness Homebound Status Due to the above stated illness, injury or surgical procedure (medical condition or diagnosis) and associated clinical findings, the patient is homebound because of his/her inability to leave home except with aid of a supportive device and/or person AND leaving the home requires a considerable and taxing effort or is medically contraindicated. Pt req the following assistanc: Aid of another person Home Health Nursing Orders Home Health Services Order: Nursing Services, Physical Therapy-Evaluate & Treat Home Health Infusion Therapy Line Start Date: May 29, 2022 Therapy Orders Therapy Orders: Physical Therapy Therapy Specific Orders: Eval assistive deivces, Teach enviro modifications/safety, Gait training, Increase strength/endurance Certify Stmt I certify that this patient is under my care and that I, a nurse practitioner or a physician; a volunteer services assistant working with me, had a face to face encounter that - meets the physician face to face encounter requirements with this patient as dated. Discharge Physical Exam General: Alert, No Acute Distress HEENT: Atraumatic, EOMI Lungs: Clear to Auscultation, Normal Air Movement Heart: Regular Rate, No Murmurs Abdomen: Normal Bowel Sounds, Soft Extremities: No Edema, No Tenderness/Swelling Skin: No Rashes, No Significant Lesion Neuro: Normal Speech, Normal Tone Psych/Mental Status: Mental Status NL, Mood NL SEVERIANO LAZO MD May 31, 2022 18:10
== END 2022-05-31 11:08 | disposition home health service (06) | DRG 871 ==
LOC: EDUNIT# 08:37 → ER 08:38 → ICU 11:44 → 4TH 05-30 15:09
PROVIDERS: ADMIT Family Medicine; ATTEND Internal Medicine
DX: A41.9 Sepsis, unspecified organism (principal); J18.9 Pneumonia, unspecified organism; G93.40 Encephalopathy, unspecified; N17.9 Acute kidney failure, unspecified; R65.20 Severe sepsis without septic shock; E11.649 Type 2 diabetes mellitus with hypoglycemia without coma; T68.XXXA Hypothermia, initial encounter; E86.0 Dehydration; I10 Essential (primary) hypertension; I25.10 Atherosclerotic heart disease of native coronary artery without angina pectoris; E78.00 Pure hypercholesterolemia, unspecified; F17.210 Nicotine dependence, cigarettes, uncomplicated; N40.0 Benign prostatic hyperplasia without lower urinary tract symptoms; H54.7 Unspecified visual loss; Z79.84 Long term (current) use of oral hypoglycemic drugs; Z95.5 Presence of coronary angioplasty implant and graft; Z85.72 Personal history of non-Hodgkin lymphomas; Z20.822 Contact with and (suspected) exposure to COVID-19; Z79.82 Long term (current) use of aspirin
CPT/HCPCS: 36415; 51702; 70450; 71045; 80053; 81000; 82607; 82728; 82746; 82947; 83540; 83550; 83605; 83735; 84145; 84484; 85007; 85025; 85027; 85610; 85730; 87040; 87081; 87636; 93005; 94640

== ENCOUNTER 2022-12-07 05:38 | Outpatient (CLI) | payer MEDICARE, OTHER ==
[~2022-12-07] VITALS: Ht 168.9 cm; Wt 81.6 kg
[~2022-12-07 05:38] MED LIST changes: +ALBU8.5H6 IH; +BUME1TAB8 PO; +CALC600T80 PO; +CEFD300C3 PO; +CLOP-31 PO; -CLOP75TA69 PO; +GABA300C PO; +GLIP10TA24 PO; +HYDR-3820 PO; +NITR0.4T39 SL; +PANT40TA52 PO; +POTA10TA PO; -RT-ALBUINH IH; +TMSL.4C PO
== END 2022-12-08 14:32 | disposition home or self-care (01) ==
LOC: PREOP 05:38
PROVIDERS: ATTEND Surgery
DX: Z01.818 Encounter for other preprocedural examination (principal)

== ENCOUNTER 2022-12-14 17:26 | Inpatient (IN) | payer MEDICARE, OTHER ==
[~2022-12-14] VITALS: Ht 171.4 cm; Wt 86.5 kg
[2022-12-14] VITALS (8 sets, daily range): BP systolic 93–117; BP diastolic 40–78
[2022-12-14 17:57] LABS: BASOPHILS % (AUTO) 0 % (0-10); EOSINOPHILS # (AUTO) 0.2 10^3/uL (0.0-0.3); EOSINOPHILS % (AUTO) 2 % (0-10); HEMATOCRIT 28 % (40-54); HEMOGLOBIN 9.2 g/dL (13.3-17.7); LYMPHOCYTES # (AUTO) 0.5 10^3/uL (1.0-4.0); LYMPHOCYTES % (AUTO) 5 % (12-44); MEAN CORPUSCULAR HEMOGLOBIN 29 pg (25-34); MEAN CORPUSCULAR HGB CONC 32 g/dL (32-36); MEAN CORPUSCULAR VOLUME 88 fL (80-99); MEAN PLATELET VOLUME 9.8 fL (9.0-12.2); MONOCYTES # (AUTO) 0.6 10^3/uL (0.0-1.0); MONOCYTES % (AUTO) 6 % (0-12); NEUTROPHILS # (AUTO) 9.2 10^3/uL (1.8-7.8); NEUTROPHILS % (AUTO) 87 % (42-75); PLATELET COUNT 312 10^3/uL (130-400); WHITE BLOOD COUNT 10.6 10^3/uL (4.3-11.0)
[2022-12-14 18:08] LABS: ALBUMIN 2.9 GM/DL (3.2-4.5); POTASSIUM 4.2 MMOL/L (3.6-5.0)
[2022-12-14 18:09] LABS: CALCIUM 8.2 MG/DL (8.5-10.1)
--- NOTE | 2022-12-14 18:10 | ED General ---
General Chief Complaint: Glucose Problems Stated Complaint: AMS Source of Information: Patient Exam Limitations: No Limitations (PAULETTE VEGAS APRN) History of Present Illness Date Seen by Provider: December 14, 2022 Time Seen by Provider: 17:50 Initial Comments 72-year-old male presents to the ER via EMS for hypoglycemia. Patient is diabetic. 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 States his and neighbor had to help him into the house. When EMS arrived his blood sugar was 23. He states that he has not had an appetite for over a year, but states he has been worse for the last week a week and a half, states he has not been eating. States he is also had 2-3 episodes of diarrhea a day for the last 5 days. He states that he has still been taking his medication, even though he has not been eating. He takes metformin and glipizide for his diabetes. He has been taking a stool softener, did not take it today. He reports he has a history of lymphoma, was last on chemo approximately 3 years ago. He is seeing at the oncology nurse practitioner this month. He denies any recent fevers, chest pain, shortness of air, abdominal pain, nausea, vomiting. He also reports that this morning his legs went weak and he fell and hit his head. Denies any headache at this time. (PAULETTE VEGAS APRN) Allergies and Home Medications Allergies Coded Allergies: LEE Inhibitors (Unverified Adverse Reaction, Mild, cough, 11/07/17) Patient Home Medication List Home Medication List Reviewed: Yes (PAULETTE VEGAS APRN) Aspirin (Aspirin EC) 81 Mg Tablet.dr, 81 MG PO HS, (Reported) Entered as Reported by: CLIFF DA SILVA on 05/30/22 1107 Last Action: Continued Atorvastatin Calcium (Atorvastatin Calcium) 80 Mg Tablet, 80 MG PO HS, (Reported) Entered as Reported by: ERIKA PAIZ on 07/11/16 1326 Last Action: Continued Bumetanide (Bumetanide) 1 Mg Tablet, 1 MG PO DAILY, (Reported) Entered as Reported by: CLIFF DA SILVA on 05/30/22 1107 Last Action: Held Cetirizine HCl (Cetirizine HCl) 10 Mg Tablet, 10 MG PO DAILY, (Reported) Entered as Reported by: SUZANNE MIRAMONTES on 02/17/22 104 Last Action: Converted Clopidogrel Bisulfate (Clopidogrel) 75 Mg Tablet, 75 MG PO DAILY, (Reported) Entered as Reported by: CLIFF DA SILVA on 05/30/221106 Last Action: Continued Cyanocobalamin (Cyanocobalamin Injection) 1,000 Mcg/Ml Inj, 1,000 MCG IM MONTHLY, (Reported) Entered as Reported by: SUZANNE MIRAMONTES on 02/17/221042 Last Action: Held Docusate Sodium (Docusate Sodium) 250 Mg Capsule, 250 MG PO BID, (Reported) Entered as Reported by: CLIFF DA SILVA on 05/30/221106 Last Action: Converted Folic Acid (Folic Acid) 0.8 Mg Tablet, 0.8 MG PO DAILY, (Reported) Entered as Reported by: CLIFF DA SILVA on 12/15/221431 Last Action: Converted Gabapentin (Neurontin) 300 Mg Capsule, 300 MG PO TID, (Reported) Entered as Reported by: CLIFF DA SILVA on 05/30/221106 Last Action: Continued Glipizide (Glipizide ER) 10 Mg Tab.er.24, 10 MG PO DAILY, (Reported) Entered as Reported by: CLIFF DA SILVA on 12/15/221431 Last Action: Held Losartan Potassium (Losartan Potassium) 50 Mg Tablet, 50 MG PO DAILY, (Reported) Entered as Reported by: CLIFF DA SILVA on 12/15/221431 Last Action: Held Magnesium Oxide (Magnesium Oxide) 400 Mg Magnesium Tablet, 400 MG PO 1200, (Reported) Entered as Reported by: CLIFF DA SILVA on 12/15/221431 Last Action: Converted Metformin HCl (Metformin HCl) 1,000 Mg Tablet, 1,000 MG PO BID, (Reported) Entered as Reported by: ERIKA PAIZ on 07/11/16 1326 Last Action: Held Metoprolol Tartrate (Metoprolol Tartrate) 100 Mg Tablet, 100 MG PO BID, (Reported) Entered as Reported by: ARIANNA SANDOVAL on 07/12/16 0804 Last Action: Converted Montelukast Sodium (Montelukast Sodium) 10 Mg Tablet, 10 MG PO HS, (Reported) Entered as Reported by: ERIKA PAIZ on 07/11/16 1326 Last Action: Continued Mupirocin (Mupirocin) 2 % Oint...g., 1 APPLIC TOP TID, (Reported) Entered as Reported by: CLIFF AD SILVA on 12/15/22 1432 Last Action: Held Nitroglycerin (Nitroglycerin) 0.4 Mg Tab.subl, 0.4 MG SL UD PRN for CHEST PAIN, (Reported) Entered as Reported by: CLIFF DA SILVA on 05/30/22 110 Last Action: Continued Pantoprazole Sodium (Pantoprazole Sodium) 40 Mg Tablet.dr, 40 MG PO DAILY, (Reported) Entered as Reported by: CLIFF DA SILVA on 05/30/221106 Last Action: Continued Potassium Chloride (K-Tab ER) 10 Meq Tablet.er, 10 MEQ PO BID, (Reported) Entered as Reported by: WILDA YAÑEZ on 05/29/221453 Last Action: Held Tamsulosin HCl (Flomax) 0.4 Mg Cap, 0.4 MG PO 1800, (Reported) Entered as Reported by: WILDA YAÑEZ on 05/29/221453 Last Action: Continued Discontinued Medications Calcium Carbonate (Calcium Carbonate) 600 Mg Calcium (1500 Mg) Tablet, 600 MG PO BID, (Reported) Discontinued Reason: No Longer Taking Entered as Reported by: WILDA YAÑEZ on 05/29/221453 Last Action: Discontinued Folic Acid (Folic Acid) 1 Mg Tablet, 1 MG PO DAILY, (Reported) Discontinued Reason: Prescription changed Entered as Reported by: SUZANNE MIRAMONTES on 02/17/22 1043 Review of Systems Review of Systems Constitutional: see HPI (PAULETTE VEGAS APRN) Past Gefuyqp-Objnmv-Gihuil Hx Patient Social History Tobacco Use?: Yes Tobacco type used: Cigarettes Smoking Status: Current Everyday Smoker Use of E-Cig and/or Vaping dev: No Substance use?: No Alcohol Use?: No Pt feels they are or have been: No (PAULETTE VEGAS APRN) Immunizations Up To Date Tetanus Booster (TDap): Unknown PED Vaccines UTD: No Influenza Vaccine Up-to-Date: Yes; Up-to-Date First/Initial COVID19 Vaccinat: 09/18/2020 Second COVID19 Vaccination Hung: 10/16/2020 Third COVID19 Vaccination Date: 05/28/2021 (PAULETTE VEGAS APRN) Seasonal Allergies Seasonal Allergies: Yes (PAULETTE VEGAS APRN) Past Medical History Surgery/Hospitalization HX: pmh: mi, lymphoma, asthma, copd, dm sx: vasestomy, stent, rotator cuff Surgeries: Yes (HYDROCELECTOMY, SPERMATOCELE, JOINT REMOVED FROM TOE, BILAT ROTATOR CUFF) Coronary Stent, Vasectomy Respiratory: Yes (CHRONIC COUGH, HOME 02 PRN) Asthma, Sleep Apnea Currently Using CPAP: No (HADNT BEEN USING DO TO COUGHING) Currently Using BIPAP: No Cardiac: Yes (STENT) Coronary Artery Disease, Heart Attack, High Cholesterol, Hypertension Neurological: No Reproductive Disorders: No Sexually Transmitted Disease: No HIV/AIDS: No Genitourinary: No Gastrointestinal: Yes Colitis, Chronic Constipation Musculoskeletal: Yes Degenerate Disk Disease, Chronic Back Pain Endocrine: Yes Diabetes, Non-Insulin dep Loss of Vision: Bilateral Hearing Impairment: Denies Cancer: Yes Lymphoma Did You Recieve Any Treatments: Yes What Type of Treatment Did You: Chemotherapy Psychosocial: No Integumentary: No Blood Disorders: No Adverse Reaction/Blood Tranf: No (N/A) (PAULETTE VEGAS APRN) Family Medical History No Pertinent Family Hx (PAULETTE VEGAS APRN) Physical Exam Vital Signs Vital Signs - First Documented 12/14/22 17:28 Temp 36.1 Pulse 64 Resp 14 B/P (MAP) 94/55 (68) Pulse Ox 92 O2 Delivery Room Air (SARAH,AJAY K DO) Vital Signs Capillary Refill : (PAULETTE VEGAS APRN) Height, Weight, BMI Height: 5'7.50" Weight: 190lbs. 3.0oz. 86.241358ws; 28.60 BMI Method:Stated General Appearance: No Apparent Distress, WD/WN HEENT: PERRL/EOMI Neck: Non Tender, Supple Respiratory: Lungs Clear, Normal Breath Sounds, No Accessory Muscle Use, No Respiratory Distress Cardiovascular: Regular Rate, Rhythm Gastrointestinal: Normal Bowel Sounds, Non Tender, Soft Extremity: Normal Inspection, Normal Range of Motion Neurologic/Psychiatric: Alert, Normal Mood/Affect Skin: Warm/Dry, Pallor (PAULETTE VEGAS APRN) Focused Exam Lactate Level 12/14/22 18:35: Lactic Acid Level 1.71 (SARAHAJAY Marin DO) Lactic Acid Level Laboratory Tests Test 12/14/22 18:35 Lactic Acid Level 1.71 MMOL/L (0.50-2.00) (SARAHAJAY Tania DO) Progress/Results/Core Measures Suspected Sepsis SIRS Temperature: Pulse: Respiratory Rate: Laboratory Tests 12/14/22 17:45: White Blood Count 10.6 Blood Pressure / Mean: 12/14/22 18:35: Lactic Acid Level 1.71 Laboratory Tests 12/14/22 17:45: Creatinine 2.15H, Platelet Count 312, Total Bilirubin 0.2 12/14/22 18:35: INR Comment 1.1 (PAULETTE VEGAS APRN) Results/Orders Lab Results Laboratory Tests Test 12/14/22 17:35 12/14/22 17:45 12/14/22 18:35 12/14/22 19:00 Range/Units Glucometer 69 L 23 *L 70-110 MG/DL White Blood Count 10.6 4.3-11.0 10^3/uL Red Blood Count 3.23 L 4.30-5.52 10^6/uL Hemoglobin 9.2 L 13.3-17.7 g/dL Hematocrit 28 L 40-54 % Mean Corpuscular Volume 88 80-99 fL Mean Corpuscular Hemoglobin 29 25-34 pg Mean Corpuscular Hemoglobin Concent 32 32-36 g/dL Red Cell Distribution Width 14.4 10.0-14.5 % Platelet Count 312 130-400 10^3/uL Mean Platelet Volume 9.8 9.0-12.2 fL Immature Granulocyte % (Auto) 1 % Neutrophils (%) (Auto) 87 H 42-75 % Lymphocytes (%) (Auto) 5 L 12-44 % Monocytes (%) (Auto) 6 0-12 % Eosinophils (%) (Auto) 2 0-10 % Basophils (%) (Auto) 0 0-10 % Neutrophils # (Auto) 9.2 H 1.8-7.8 10^3/uL Lymphocytes # (Auto) 0.5 L 1.0-4.0 10^3/uL Monocytes # (Auto) 0.6 0.0-1.0 10^3/uL Eosinophils # (Auto) 0.2 0.0-0.3 10^3/uL Basophils # (Auto) 0.0 0.0-0.1 10^3/uL Immature Granulocyte # (Auto) 0.1 0.0-0.1 10^3/uL Neutrophils % (Manual) 83 % Lymphocytes % (Manual) 7 % Monocytes % (Manual) 4 % Eosinophils % (Manual) 2 % Basophils % (Manual) 1 % Band Neutrophils 3 % Platelet Estimate NORMAL Clumped Platelets MODERATE Poikilocytosis MODERATE Anisocytosis SLIGHT Golden Cells MODERATE Sodium Level 137 135-145 MMOL/L Potassium Level 4.2 3.6-5.0 MMOL/L Chloride Level 109 H 98-107 MMOL/L Carbon Dioxide Level 13 L 21-32 MMOL/L Anion Gap 15 H 5-14 MMOL/L Blood Urea Nitrogen 31 H 7-18 MG/DL Creatinine 2.15 H 0.60-1.30 MG/DL Estimat Glomerular Filtration Rate 32 BUN/Creatinine Ratio 14 Glucose Level 62 L 70-105 MG/DL Calcium Level 8.2 L 8.5-10.1 MG/DL Corrected Calcium 9.1 8.5-10.1 MG/DL Total Bilirubin 0.2 0.1-1.0 MG/DL Aspartate Amino Transf (AST/SGOT) 93 H 5-34 U/L Alanine Aminotransferase (ALT/SGPT) 89 H 0-55 U/L Alkaline Phosphatase 110 40-136 U/L Total Protein 5.7 L 6.4-8.2 GM/DL Albumin 2.9 L 3.2-4.5 GM/DL Prothrombin Time 14.6 12.2-14.7 SEC INR Comment 1.1 0.8-1.4 Activated Partial Thromboplast Time 31 24-35 SEC Lactic Acid Level 1.71 0.50-2.00 MMOL/L Test 12/14/22 19:28 12/14/22 20:20 Range/Units Total Creatine Kinase 38 30-200 U/L Creatine Kinase MB 2.0 <6.6 NG/ML Glucometer 108 70-110 MG/DL (SARAHAJAY K DO) Micro Results Microbiology 12/14/22 Blood Culture - Preliminary, Resulted No growth 12/14/22 Blood Culture - Preliminary, Resulted No growth (SARAH,AJAY K DO) Vital Signs/I&O 12/14/22 12/14/22 17:28 21:00 Temp 36.1 Pulse 64 64 Resp 14 14 B/P (MAP) 94/55 (68) 105/63 Pulse Ox 92 96 O2 Delivery Room Air Room Air (AJAY SMITH DO) Vital Signs/I&O Capillary Refill : (PAULETTE VEGAS APRN) Progress Note : Progress Note Patient seen and evaluated, resting comfortably in bed, no acute distress. Based on exam and symptoms, septic work-up initiated including CBC, CMP, coags, lactic acid, blood cultures x2, chest x-ray, urinalysis. 2 L of IV fluids ordered, patient was given 500 mils of fluids by EMS. EMS also gave dextrose. We will continue to monitor blood sugars. 1914 Labs and imaging reviewed. CBC shows decreased hemoglobin 9.2, decreased hematocrit 28. Previous hemoglobin from labs on 05/31/2022 was 7.9, previous hematocrit 27. CMP shows increased chloride 109, decreased CO2 13, increased anion gap 15, BUN elevated 31, creatinine elevated 2.15, GFR 32. Previous BUN was 10, creatinine was 0.94, GFR was 88. Patient has been unable to provide a urine sample, likely due to dehydration. Chest x-ray shows cardiomegaly and mild central vascular prominence. No acute consolidation or pleural fluid. 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 No acute intracranial finding. Patient's blood sugar dropped to 23 again, patient still coherent, 1 amp of dextrose 50% ordered. Dextrose 10% drip ordered at 100 mls/hr. I called and spoke with Dr. Nj regarding admission. She would like a CK obtained and will admit inpatient to cardiac stepdown. She will place admission orders. (PAULETTE VEGAS APRN) Diagnostic Imaging Diagonstic Imaging: Xray Plain Films/CT/US/NM/MRI: chest Comments [facility]. [place], [place] NAME: JOCELYN DENNY [facility] REC#: [id number] PT STATUS: REG ER : 1950 PHYSICIAN: PAULETTE VEGAS APRN ADMIT DATE: 12/14/22/ER Signed Date of Exam:12/14/22 CHEST 1 VIEW, AP/PA ONLY INDICATION: Hypoglycemia. EXAMINATION: Frontal chest was obtained at 6:45 p.m. COMPARISON: 05/29/2022. FINDINGS: There is cardiomegaly with mild central vascular congestion. There are chronic appearing increased interstitial markings which are similar to the prior study. There is no overt consolidation or pneumothorax or pleural fluid. IMPRESSION: Cardiomegaly and mild central vascular prominence with chronic appearing increased interstitial markings. No acute consolidation or pleural fluid. Dictated by: Dictated on workstation # [id number] Dict: 12/14/221844 Trans: 12/14/221908 [id number] Interpreted by: JAIMIE BARNARD MD Electronically signed by: JAIMIE BARNARD MD 12/14/221908 Diagonstic Imaging: CT Plain Films/CT/US/NM/MRI: head Comments [facility] [place] [place] NAME: JOCELYN DENNY [facility] REC#: [id number] PT STATUS: REG ER : 1950 PHYSICIAN: PAULETTE VEGAS APRN ADMIT DATE: 12/14/22/ER Signed Date of Exam:12/14/22 CT HEAD WO INDICATION: Injury to head, weakness. TECHNIQUE: Multiple contiguous axial images were obtained through the brain without the use of intravenous contrast. Auto Exposure Controls were utilized during the CT exam to meet ALARA standards for radiation dose reduction. COMPARISON: Comparison made with 05/29/2022. FINDINGS: There are diffuse atrophic changes. There were no extra-axial fluid collections. No acute intercranial hemorrhage. No mass effect or midline shift. There are old areas of hypodensity in the left cerebellar hemisphere, compatible with old infarct, which appears similar to the prior study. There is no definite new abnormality. There are postop changes in the sinuses. There is no acute bony abnormality. 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 No acute intracranial finding. Dictated by: Dictated on workstation # [id number] Dict: 12/14/221842 Trans: 12/14/221908 [facility] [id number] Interpreted by: JAIMIE BARNARD MD Electronically signed by: JAIMIE BARNARD MD 12/14/221908 (PAULETTE VEGAS APRN) Departure Communication (Admissions) Time/Spoke to Admitting Phy: 19:15 Dr. Nj, hospitalist. See progress note. (PAULETTE VEGAS APRN) Impression Primary Impression: Acute kidney injury Additional Impressions: Dehydration Hypoglycemia Disposition: ADMITTED INPATIENT Condition: Stable Admissions Decision to Admit Reason: Admit from ER (General) Decision to Admit/Date: December 14, 2022 Time/Decision to Admit Time: 19:15 (PAULETTE VEGAS APRN) Departure-Patient Inst. Referrals: MONI LOWE MD (PCP/Family) Primary Care Physician ATTENDING PHYSICIAN NOTE: I WAS PHYSICALLY PRESENT ER PHYSICIAN, BUT I WAS NOT INVOLVED IN ANY DECISION MAKING OR ANY CARE OF THIS PATIENT, AND I AM NOT COLLABORATING PHYSICIAN. (AJAY SMITH DO) PAULETTE VEGAS APRN December 14, 2022 18:10 AJAY SMITH DO December 16, 2022 00:59
[2022-12-14 18:11] LABS: TOTAL PROTEIN 5.7 GM/DL (6.4-8.2)
[2022-12-14 18:13] LABS: BILIRUBIN,TOTAL 0.2 MG/DL (0.1-1.0)
[2022-12-14 18:14] LABS: CREATININE SERUM 2.15 MG/DL (0.60-1.30)
[2022-12-14 18:29] LABS: ANISOCYTOSIS SLIGHT; BAND NEUTROPHILS 3 %; BASOPHILS % (MANUAL) 1 %; BURR CELLS MODERATE; EOSINOPHILS % (MANUAL) 2 %; LYMPHOCYTES % (MANUAL) 7 %; MONOCYTES % (MANUAL) 4 %; NEUTROPHILS % (MANUAL) 83 %; PLATELET CLUMPS MODERATE; PLATELET ESTIMATE NORMAL; POIKILOCYTOSIS MODERATE
--- NOTE | 2022-12-14 18:48 | Diagnostic Imaging Report ---
INDICATION: Injury to head, weakness. TECHNIQUE: Multiple contiguous axial images were obtained through the brain without the use of intravenous contrast. Auto Exposure Controls were utilized during the CT exam to meet ALARA standards for radiation dose reduction. COMPARISON: Comparison made with 05/29/2022. FINDINGS: There are diffuse atrophic changes. There were no extra-axial fluid collections. No acute intercranial hemorrhage. No mass effect or midline shift. There are old areas of hypodensity in the left cerebellar hemisphere, compatible with old infarct, which appears similar to the prior study. There is no definite new abnormality. There are postop changes in the sinuses. There is no acute bony abnormality. 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 No acute intracranial finding. Dictated by: Dictated on workstation # [id number]
--- NOTE | 2022-12-14 18:48 | Diagnostic Imaging Report ---
INDICATION: Hypoglycemia. EXAMINATION: Frontal chest was obtained at 6:45 p.m. COMPARISON: 05/29/2022. FINDINGS: There is cardiomegaly with mild central vascular congestion. There are chronic appearing increased interstitial markings which are similar to the prior study. There is no overt consolidation or pneumothorax or pleural fluid. IMPRESSION: Cardiomegaly and mild central vascular prominence with chronic appearing increased interstitial markings. No acute consolidation or pleural fluid. Dictated by: Dictated on workstation # [id number]
[2022-12-14 18:54] LABS: INR 1.1 (0.8-1.4); PROTHROMBIN TIME PATIENT 14.6 SEC (12.2-14.7)
[2022-12-14] MEDS: NS IV 1000 ML 1,000 ML IV SCH ×3 (18:55→23:17)
[2022-12-14] MEDS ORDERED: DEXTROSE 10% IV SOLUTION 1,000 ML IV ONE (19:15)
[2022-12-14] MEDS ORDERED: DEXTROSE 50% 50 ML (IMS) SYR IV ONE (19:15)
[2022-12-14] MEDS ORDERED: DEXTROSE 10% IV SOLUTION 250 ML IV ONE (19:19)
[2022-12-14] MEDS ORDERED: ANTACID SUSP 30 ML UDC (MYLANTA) PO PRN (21:30)
[2022-12-14] MEDS ORDERED: LORazepam 0.5 MG (ATIVAN) TABLET PO PRN (21:30)
[2022-12-14] MEDS ORDERED: ONDANSETRON 4 MG (ZOFRAN) ORAL DISSOLVE TAB PO PRN (21:30)
[2022-12-14] MEDS ORDERED: BISACODYL 10 MG SUPP (DULCOLAX) PR PRN (21:30)
[2022-12-14] MEDS ORDERED: MELATONIN 3 MG TABLET PO PRN (21:30)
[2022-12-14] MEDS ORDERED: ACETAMINOPHEN 325 MG TABLET PO PRN (21:30)
[2022-12-14] MEDS ORDERED: ONDANSETRON 4 MG/2 ML (SDV) Z0FRAN IV PRN (21:30)
[2022-12-14] MEDS ORDERED: HYDROmorphone 2 MG/ML VIAL (DILAUDID) IV PRN (21:30)
[2022-12-14] MEDS ORDERED: NS (IVPB) 250 ML IV PRN (21:30)
[2022-12-14] MEDS ORDERED: DEXTROSE 10% IV SOLUTION 1,000 ML IV SCH (21:30)
[2022-12-14] MEDS ORDERED: CALCIUM CARBONATE 500 MG (TUMS) TAB.CHEW PO PRN (21:30)
[2022-12-14] MEDS ORDERED: LACTULOSE SYRUP 10GM/15ML (ENULOSE) 30ML UDC PO PRN (21:30)
[2022-12-14] MEDS ORDERED: diphenhydrAMINE 50 MG/ML INJ (BENADRYL) IVP PRN (21:30)
[2022-12-14] MEDS ORDERED: diphenhydrAMINE 25 MG TAB (BENADRYL) PO PRN (21:30)
[2022-12-14] MEDS ORDERED: MILK OF MAGNESIA 400 MG/5 ML 30 ML UDC PO PRN (21:30)
[2022-12-14] MEDS ORDERED: polyethylene glycoL POWDER 17 GM (MIRALAX) PACK PO PRN (21:30)
[2022-12-14] MEDS ORDERED: LORazepam INJ 2 MG/ML (ATIVAN) VIAL IVP PRN (21:30)
[2022-12-14] MEDS ORDERED: RT-ALBUTEROL SULF 2.5 MG/3 ML PRE-MIX VIAL INH PRN (21:45)
[2022-12-14] MEDS ORDERED: NICOTINE 21 MG (NICODERM) PATCH TD SCH (22:00)
[2022-12-14] MEDS ORDERED: CATHETER FLUSH 10 ML SYR IVP PRN (23:45)
[2022-12-15] VITALS (7 sets, daily range): BP systolic 90–150; BP diastolic 39–86
[2022-12-15] MEDS: DEXTROSE 50% 50 ML (IMS) SYR IV PRN ×7 (00:52→08:29)
[2022-12-15 05:03] LABS: BASOPHILS % (AUTO) 0 % (0-10); EOSINOPHILS # (AUTO) 0.3 10^3/uL (0.0-0.3); EOSINOPHILS % (AUTO) 3 % (0-10); HEMATOCRIT 24 % (40-54); HEMOGLOBIN 7.7 g/dL (13.3-17.7); LYMPHOCYTES # (AUTO) 0.7 10^3/uL (1.0-4.0); LYMPHOCYTES % (AUTO) 9 % (12-44); MEAN CORPUSCULAR HEMOGLOBIN 29 pg (25-34); MEAN CORPUSCULAR HGB CONC 33 g/dL (32-36); MEAN CORPUSCULAR VOLUME 88 fL (80-99); MEAN PLATELET VOLUME 10.4 fL (9.0-12.2); MONOCYTES # (AUTO) 0.5 10^3/uL (0.0-1.0); MONOCYTES % (AUTO) 6 % (0-12); NEUTROPHILS # (AUTO) 6.7 10^3/uL (1.8-7.8); NEUTROPHILS % (AUTO) 81 % (42-75); PLATELET COUNT 336 10^3/uL (130-400); WHITE BLOOD COUNT 8.2 10^3/uL (4.3-11.0)
[2022-12-15 05:17] LABS: ALBUMIN 2.4 GM/DL (3.2-4.5); POTASSIUM 3.9 MMOL/L (3.6-5.0)
[2022-12-15 05:18] LABS: CALCIUM 7.3 MG/DL (8.5-10.1)
[2022-12-15 05:20] LABS: TOTAL PROTEIN 4.7 GM/DL (6.4-8.2)
[2022-12-15 05:21] LABS: BILIRUBIN,TOTAL 0.2 MG/DL (0.1-1.0)
[2022-12-15 05:23] LABS: CREATININE SERUM 1.7 MG/DL (0.60-1.30)
[2022-12-15] MEDS: NS IV 1000 ML 1,000 ML IV SCH ×4 (06:32→19:54)
--- NOTE | 2022-12-15 07:14 | History & Physical ---
History of Present Illness HPI/Chief Complaint CC: Hypoglycemia with REYES HPI: This is a 72yoWM clinic patient of Dr William Wilburn who presents to the ER with refractory hypoglycemia due to use of Glipizide 10 ER with dehydration from 5 days of diarrhea and lack of oral hydration causing REYES creat 2.1. He had a rough night requiring multiple rounds of D50 amps. Currently he is doing well. I have restarted most of his home meds. We will move to [facility] and ambulate and likely DC tomorrow. Source: patient, family Exam Limitations: no limitations Date Seen 12/15/22 Time Seen by a Provider: 10:45 Attending Physician William Wilburn MD PCP Admitting Physician: Lissy Nj DO Attending Physician: Lissy Nj DO Referring Physician Date of Admission December 14, 2022 at 21:03 Home Medications & Allergies Home Medications Reviewed patient Home Medication Reconciliation performed by pharmacy medication reconciliations senior manufacturing technician and/or nursing. Patients Allergies have been reviewed. Allergies Allergies Coded Allergies LEE Inhibitors (Unverified Adverse Reaction, Mild, cough, 11/07/17) Past Pchrwcp-Weccwy-Khmolx Hx Past Med/Social Hx: Reviewed Nursing Past Med/Soc Hx, Reviewed and Corrections made Patient Social History Marrital Status: Employed/Student: retired Alcohol Use: Occasionally Uses Smoking Status: Current Everyday Smoker Type Used: Cigarettes 2nd Hand Smoke Exposure: Yes Recent Hopitalizations: No Recent Infectious Disease Expo: No Immunizations Up To Date Tetanus Booster (TDap): Unknown Pediatric: No Date of Pneumonia Vaccine: Feb 25, 2013 Date of Influenza Vaccine: Apr 28, 2022 Seasonal Allergies Seasonal Allergies: Yes Past Medical History Surgeries: Coronary Stent, Vasectomy Currently Using CPAP: No (HADNT BEEN USING DO TO COUGHING) Currently Using BIPAP: No Cardiac: Coronary Artery Disease, Heart Attack, High Cholesterol, Hypertension Reproductive: No Sexually Transmitted Disease: No HIV/AIDS: No Gastrointestinal: Colitis, Chronic Constipation Musculoskeletal: Degenerate Disk Disease, Chronic Back Pain Endocrine: Diabetes, Non-Insulin dep Loss of Vision: Bilateral Hearing Impairment: Denies Cancer: Lymphoma Did You Recieve Any Treatments: Yes What Type of Treatment Did You: Chemotherapy History of Blood Disorders: No Adverse Reaction to Blood Bates: No (N/A) Family History No Pertinent Family Hx Review of Systems Constitutional: see HPI, malaise, weakness EENTM: no symptoms reported Respiratory: see HPI Cardiovascular: see HPI Gastrointestinal: see HPI Genitourinary: see HPI Musculoskeletal: see HPI Skin: see HPI Psychiatric/Neurological: See HPI Physical Exam Physical Exam Vital Signs Vital Signs - First Documented 12/14/22 12/14/22 12/15/22 17:28 21:32 20:49 Temp 36.1 Pulse 64 Resp 14 B/P (MAP) 94/55 (68) Pulse Ox 92 O2 Delivery Room Air O2 Flow Rate 0.00 FiO2 21 Capillary Refill : Less Than 3 Seconds Height, Weight, BMI Height: 5'7.50" Weight: 190lbs. 3.0oz. 86.307039vn; 26.65 BMI Method:Stated General Appearance: No Apparent Distress, WD/WN, Chronically ill, Obese HEENT: PERRL/EOMI, Normal ENT Inspection, Pharynx Normal Neck: Non Tender, Supple Respiratory: Chest Non Tender, Lungs Clear, Normal Breath Sounds, No Accessory Muscle Use, No Respiratory Distress Cardiovascular: Regular Rate, Rhythm Gastrointestinal: Normal Bowel Sounds, Non Tender, Soft Extremity: Normal Inspection, Normal Range of Motion Neurologic/Psychiatric: Alert, Oriented x3, No Motor/Sensory Deficits, Normal Mood/Affect Skin: Warm/Dry, Pallor Results Results/Procedures Labs Laboratory Tests 12/14/22 17:45 12/15/22 04:48 12/16/22 04:28 Patient resulted labs reviewed. Assessment/Plan Admission Diagnosis Assessment: Refractory and severe hypoglycemia due to OHA ER REYES due to dehydration from 5 days of diarrhea HTN Smoker HLP CAD DM HLP Plan: D10 with D50 amps prn Hold OHA and Metformin Ambulate Admission Status: Inpatient Order (span 2 midnights) Reason for Inpatient Admission: severe refractory hypoglycemia from REYES and OHA Diagnosis/Problems Diagnosis/Problems (1) Hypoglycemia Status: Acute (2) Acute kidney injury (3) Dehydration LISSY NJ DO December 15, 2022 07:14
[2022-12-15] MEDS: DOCUSATE SODIUM 100 MG (COLACE) CAP PO SCH ×2 (08:01→19:38)
[2022-12-15] MEDS: NICOTINE PATCH REMOVAL TP SCH (08:01)
[2022-12-15] MEDS: NICOTINE 21 MG (NICODERM) PATCH TD SCH (08:01)
[2022-12-15] MEDS: SENNOSIDES 8.6 MG (SENOKOT) TAB PO SCH ×2 (08:02→19:38)
[2022-12-15] MEDS ORDERED: DEXTROSE 10% IV SOLUTION 1,000 ML IV SCH (12:30)
--- NOTE | 2022-12-15 13:55 | Occupational Therapy Eval ---
OT Evaluation-General/PLF Medical Diagnosis Admission Date December 14, 2022 at 21:03 Medical Diagnosis: acute hypoglycemia Onset Date: December 14, 2022 Therapy Diagnosis Therapy Diagnosis: weakness Height/Weight Height (Feet): 5 Height (Inches): 7.50 Weight (Pounds): 190 Weight (Ounces): 3.0 Precautions Precautions/Isolations: Fall Prevention Weight Bear Status Weight Bearing Restriction: Full Weight Bearing Referral Referral Reason: Evaluation/Treatment Medical History Pertinent Medical History: CAD, DM, HTN Additional Medical History Skin tears on hands and forearm, patient reports fall and hitting self w/ hammer prior to coming in hospital Reviewed History: Yes Social History Home: Single Level Current Living Status: Significant Other Entry Into Home: Stairs With Railing mows neighbor's yard as well ADL-Prior Level of Function SCALE: Activities may be completed with or without assistive devices. 0-Gvxywzbmsu-sxelyrx completes the activity by him/herself with no assistance from a helper. 5-Set-up or Clean-up Assistance-helper sets up or cleans up; patient completes activity. [place] assists only prior to or following the activity. 4-Supervision or Touching Assistance-helper provides verbal cues and/or touching/steadying and/or contact guard assistance as patient completes activity. Assistance may be provided throughout the activity or intermittently. 3-Partial/Moderate Assistance-helper does LESS THAN HALF the effort. [place] lifts, holds or supports trunk or limbs, but provides less than half the effort. 2-Substantial/Maximal Assistance-helper does MORE THAN HALF the effort. [place] lifts or holds trunk or limbs and provides more than half the effort. 5-Lvbvnsrmt-uccvyq does ALL the effort. Patient does none of the effort to complete the activity. Or, the assistance of 2 or more helpers is required for the patient to complete the activity. If activity was not attempted, code reason: 7-Patient Refused. 9-Not Applicable-not attempted and the patient did not perform the activity before the current illness, exacerbation or injury. 10-Not Attempted due to Environmental Limitations-(lack of equipment, weather restraints, etc.). 88-Not Attempted due to Medical Conditions or Safety Concerns. Self Care: Independent Functional Cognition: Independent Drive Self: Yes OT Current Status Subjective Visiting w/ spouse, agreeable to OT Pain Numeric Pain Scale: 0-No Pain Mental Status/Objective Patient Orientation: Person, Place, Time, Situation Attachments: IV, Telemetry, Other-See Comments (BP) Current Glasses/Contacts: Yes Upper Extremity ROM BUE ROM WFL, edema and pain to ROM left hand d/t IV and skin tear Upper Extremity Coordination unable to perform opposition to left hand d/t edema and pian from IV Upper Extremity Strength BUE WFL except unable to test artificial flowers dyer and pinch of left hand ADL-Treatment Eating (QC): 6 Oral Hygiene (QC): 6 Shower/Bathe Self (QC): 7 Upper Body Dressing (QC): 4 (d/t lines and monitors) Lower Body Dressing (QC): 6 On/Off Footwear (QC): 6 Toileting Hygiene (QC): 6 Independent use of urinal in standing at bedside Education OT Patient Education: Correct positioning, Progress toward Goal/Update tx plan, Purpose of tx/functional activities, Reviewed precautions, Rehab process, Safety issues Teaching Recipient: Patient, Family Teaching Methods: Discussion Response to Teaching: Return Demonstration OT Snf Goals Snf Goals 1=Demonstrate adherence to instructed precautions during ADL tasks. 2=Patient will verbalize/demonstrate understanding of assistive devices/modifications for ADL. 3=Patient will improve strength/tolerance for activity to enable patient to perform ADL's. OT Education/Plan Problem List/Assessment Assessment: No Skilled OT Needs ID'd Discharge Recommendations Plan/Recommendations: Discontinue OT Therapy Discharge Recommendati: Home & Family Treatment Plan/Plan of Care Patient would benefit from OT for education, treatment and training to promote independence in ADL's, mobility, safety and/or upper extremity function for ADL's. Plan of Care: OTHER (EVAL only) Treatment Duration: December 15, 2022 Frequency: 1 time per week Estimated Hrs Per Day: .25 hour per day Agreement: Yes Time Start Time: 13:30 Stop Time: 13:45 DATE: December 15, 2022 Total Time Billed (hr/min): 15 Billed Treatment Time EVL 15 min SATHYA FINLEY OT December 15, 2022 13:55
[2022-12-15] MEDS ORDERED: GLIP10TA24 PO (14:32)
[2022-12-15] MEDS ORDERED: LOSA50TA63 PO (14:32)
[2022-12-15] MEDS ORDERED: MAGN400T50 PO (14:32)
[2022-12-15] MEDS ORDERED: MUPI22OI2 TOP (14:32)
[2022-12-15] MEDS ORDERED: FOLI0.8T4 PO (14:32)
--- NOTE | 2022-12-15 15:02 | Physical Therapy Evaluation ---
PT Evaluation-General Medical Diagnosis Admission Date December 14, 2022 at 21:03 Medical Diagnosis: acute hypoglycemia Onset Date: December 14, 2022 Therapy Diagnosis Therapy Diagnosis: Gait deficit, strength Height/Weight Height (Feet): 5 Height (Inches): 7.50 Weight (Pounds): 190 Weight (Ounces): 3.0 Precautions Precautions/Isolations: Fall Prevention Weight Bear Status Right Lower Extremity: Right Full Weight Bearing Left Lower Extremity: Left Full Weight Bearing Referral Physician: Dr. Nj Reason for Referral: Evaluation/Treatment Medical History Pertinent Medical History: CAD, DM, HTN Reviewed History: Yes Social History Home: Single Level Current Living Status: Significant Other Entry Into Home: Stairs With Railing PT Steps Into Home: 3 Prior Prior Level of Function SCALE: Activities may be completed with or without assistive devices. 5-Kppqyefxcr-jxjcuot completes the activity by him/herself with no assistance from a helper. 5-Set-up or Clean-up Assistance-helper sets up or cleans up; patient completes activity. [place] assists only prior to or following the activity. 4-Supervision or Touching Assistance-helper provides verbal cues and/or touching/steadying and/or contact guard assistance as patient completes activity. Assistance may be provided throughout the activity or intermittently. 3-Partial/Moderate Assistance-helper does LESS THAN HALF the effort. [place] lifts, holds or supports trunk or limbs, but provides less than half the effort. 2-Substantial/Maximal Assistance-helper does MORE THAN HALF the effort. [place] lifts or holds trunk or limbs and provides more than half the effort. 4-Fljowcntq-uhnrfx does ALL the effort. Patient does none of the effort to complete the activity. Or, the assistance of 2 or more helpers is required for the patient to complete the activity. If activity was not attempted, code reason: 7-Patient Refused. 9-Not Applicable-not attempted and the patient did not perform the activity before the current illness, exacerbation or injury. 10-Not Attempted due to Environmental Limitations-(lack of equipment, weather restraints, etc.). 88-Not Attempted due to Medical Conditions or Safety Concerns. Bed Mobility: 6 Transfers (B,C,W/C): 6 Gait: 6 Stairs: 6 Indoor Mobility (Ambulation): Independent Stairs: Independent Prior Devices Use: None Has 2 canes at home PT Evaluation-Current Subjective Patient lying supine in bed, in the room upon PT arrival, agreeable to treatment. Patient rates pain at 0/10 currently. Objective Patient Orientation: Person, Place, Time, Situation Attachments: IV ROM/Strength ROM Lower Extremities WFLs BLEs all planes Strength Lower Extremities 4/5 BLEs all planes. Sensory Vision: Functional Hearing: Functional Sensation Right Lower Extremit: Intact Sensation Left Lower Extremity: Intact Transfers Roll Left to Right (QC): 4 Sit to Lying (QC): 4 Lying to Sitting/Side of Bed(Q: 4 Sit to Stand (QC): 4 Chair/Aiv-uj-Pvgod Xfer(QC): 4 Toilet Transfer (QC): 4 Gait Does the Patient Walk?: Yes Mode of Locomotion: Walk Anticipated Mode of Locomotion: Walk Walk 10 feet (QC): 4 Walk 50 ft with 2 Turns(QC): 4 Walk 150 ft (QC): 4 Distance: 250 feet Gait Assistive Device: FWW Balance Sitting Static: Good Sitting Dynamic: Good Standing Static: Fair Standing Dynamic: Fair Assessment/Needs Patient tolerated treatment well. Patient performs all bed mobility and transfers with SBA. Patient ambulates 250 feet with FWW, with SBA and verbal cues for safety, progression and conservation of energy. Patient sitting on edge of bed post treatment with in the room, all needs met, call light in reach and nursing notified. Rehab Potential: Fair PT Usp Goals Java Xml Developer Goals PT Java Xml Developer Goals Time Frame: January 04, 2023 Roll Left & Right (QC): 6 Sit to Lying (QC): 6 Lying-Sitting on Side/Bed(QC): 6 Sit to Stand (QC): 6 Chair/Yhy-xp-Rltcl Xfer(QC): 6 Toilet Transfer (QC): 6 Does the Patient Walk: Yes Walk 10 feet (QC): 6 Walk 50ft with 2 Turns (QC): 6 Walk 150 ft (QC): 6 1 Step (curb) (QC): 6 4 Steps (QC): 4 12 Steps (QC): 4 PT Plan Problem List Problem List: Activity Tolerance, Functional Strength, Safety, Balance, Gait, Transfer, Bed Mobility, ROM Treatment/Plan Treatment Plan: Continue Plan of Care Treatment Plan: Bed Mobility, Education, Functional Activity Liyah, Functional Strength, Group Therapy, Gait, Safety, Therapeutic Exercise, Transfers Treatment Duration: January 04, 2023 Frequency: 6 times per week Estimated Hrs Per Day: .25 hour per day Patient and/or Family Agrees t: Yes Safety Risks/Education Patient Education: Gait Training, Transfer Techniques Teaching Recipient: Patient Teaching Methods: Demonstration, Discussion Response to Teaching: Verbalize Understanding, Return Demonstration Time Time In: 1349 Time Out: 1409 DATE: December 15, 2022 Total Billed Treatment Time: 20 Total Billed Treatment Visit, RAFFAELE CASTILLO PT December 15, 2022 15:02
[2022-12-15] MEDS ORDERED: ASPIRIN E.C. 81 MG (ECOTRIN) TAB PO SCH (21:00)
[2022-12-15] MEDS ORDERED: NITROGLYCERIN 0.4 MG SL TABS BTL 25'S SL PRN (21:15)
[2022-12-15] MEDS ORDERED: MONTELUKAST 10 MG (SINGULAIR) TAB PO SCH (21:30)
[2022-12-15] MEDS: meTOprolol TARTRATE 50 MG (LOPRESSOR) TAB PO SCH (22:37)
[2022-12-15] MEDS: GABAPENTIN 300 MG (NEURONTIN) CAP PO SCH (22:38)
[2022-12-16 04:00] VITALS: BP 138/69
[2022-12-16 04:37] LABS: BASOPHILS % (AUTO) 0 % (0-10); EOSINOPHILS # (AUTO) 0.3 10^3/uL (0.0-0.3); EOSINOPHILS % (AUTO) 3 % (0-10); HEMATOCRIT 24 % (40-54); HEMOGLOBIN 7.6 g/dL (13.3-17.7); LYMPHOCYTES # (AUTO) 0.9 10^3/uL (1.0-4.0); LYMPHOCYTES % (AUTO) 9 % (12-44); MEAN CORPUSCULAR HEMOGLOBIN 28 pg (25-34); MEAN CORPUSCULAR HGB CONC 32 g/dL (32-36); MEAN CORPUSCULAR VOLUME 88 fL (80-99); MEAN PLATELET VOLUME 9.5 fL (9.0-12.2); MONOCYTES # (AUTO) 0.6 10^3/uL (0.0-1.0); MONOCYTES % (AUTO) 7 % (0-12); NEUTROPHILS # (AUTO) 7.4 10^3/uL (1.8-7.8); NEUTROPHILS % (AUTO) 80 % (42-75); PLATELET COUNT 272 10^3/uL (130-400); WHITE BLOOD COUNT 9.2 10^3/uL (4.3-11.0)
[2022-12-16 04:59] LABS: ALBUMIN 2.3 GM/DL (3.2-4.5); BILIRUBIN,TOTAL 0.2 MG/DL (0.1-1.0); CALCIUM 7.2 MG/DL (8.5-10.1); CREATININE SERUM 1.32 MG/DL (0.60-1.30); POTASSIUM 4.4 MMOL/L (3.6-5.0); TOTAL PROTEIN 4.7 GM/DL (6.4-8.2)
[2022-12-16] MEDS: NS IV 1000 ML 1,000 ML IV SCH (05:42)
[2022-12-16 08:00] VITALS: BP 141/75
[2022-12-16] MEDS: NICOTINE 21 MG (NICODERM) PATCH TD SCH (08:09)
[2022-12-16] MEDS: NICOTINE PATCH REMOVAL TP SCH (08:09)
[2022-12-16] MEDS: GABAPENTIN 300 MG (NEURONTIN) CAP PO SCH (08:10)
[2022-12-16] MEDS: SENNOSIDES 8.6 MG (SENOKOT) TAB PO SCH (08:10)
[2022-12-16] MEDS: meTOprolol TARTRATE 50 MG (LOPRESSOR) TAB PO SCH (08:10)
[2022-12-16] MEDS ORDERED: FOLIC ACID 1 MG TAB PO SCH (09:00)
[2022-12-16] MEDS ORDERED: DOCUSATE SODIUM 100 MG (COLACE) CAP PO SCH (09:00)
[2022-12-16] MEDS ORDERED: LORATADINE (CLARITIN) 10 MG TAB PO SCH (09:00)
[2022-12-16] MEDS ORDERED: PANTOPRAZOLE 40 MG (PROTONIX) TAB PO SCH (09:00)
[2022-12-16] MEDS ORDERED: CLOPIDOGREL 75 MG (PLAVIX) TABLET PO SCH (09:00)
[2022-12-16 11:14] VITALS: BP 153/70
[2022-12-16] MEDS ORDERED: MAGNESIUM OXIDE (MAG-OX)400 MG TAB PO SCH (12:00)
[2022-12-16] MEDS ORDERED: GLYB1.253 PO (12:02)
--- NOTE | 2022-12-16 12:04 | Discharge Summary ---
Diagnosis/Chief Complaint Date of Admission December 14, 2022 at 21:03 Date of Discharge Discharge Date: December 16, 2022 Discharge Diagnosis Severe refractory hypoglycemia due to OHA ER REYES Diarrhea Smoker Discharge Summary Discharge Physical Examination Allergies: Coded Allergies: LEE Inhibitors (Unverified Adverse Reaction, Mild, cough, 11/07/17) Vitals & I&Os Vital Signs Date Time Temp Pulse Resp B/P (MAP) Pulse Ox O2 Delivery O2 Flow Rate FiO2 12/16/22 11:14 36.5 46 16 153/70 (97) 95 Room Air 12/16/22 08:00 97.00 12/15/22 20:49 21 General Appearance: Alert, Oriented X3, Cooperative Respiratory: Clear to Auscultation Cardiovascular: Regular Rate Psych/Mental Status: Mental Status NL Hospital Course Was the Problem List Reviewed?: Yes Uneventful course after admitted for refractory hypoglycemia from [facility] ER and REYES from diarrhea. He required multiple D50 amps along with D10 drip until kidney function returned to baseline and all labs were stable. He will see PCP next week and in meantime I will give him low dose of OHA to prevent hyperglycemia but decrease chance of hypoglycemia and he did not wish to go back on insulin as he had been on before. Labs (last 24 hrs) Laboratory Tests 12/14/22 17:35: Glucometer 69L 12/14/22 17:45: White Blood Count 10.6, Red Blood Count 3.23L, Hemoglobin 9.2L, Hematocrit 28L, Mean Corpuscular Volume 88, Mean Corpuscular Hemoglobin 29, Mean Corpuscular Hemoglobin Concent 32, Red Cell Distribution Width 14.4, Platelet Count 312, Mean Platelet Volume 9.8, Immature Granulocyte % (Auto) 1, Neutrophils (%) (Auto) 87H, Lymphocytes (%) (Auto) 5L, Monocytes (%) (Auto) 6, Eosinophils (%) (Auto) 2, Basophils (%) (Auto) 0, Neutrophils # (Auto) 9.2H, Lymphocytes # (Auto) 0.5L, Monocytes # (Auto) 0.6, Eosinophils # (Auto) 0.2, Basophils # (Auto) 0.0, Immature Granulocyte # (Auto) 0.1, Neutrophils % (Manual) 83, Lymphocytes % (Manual) 7, Monocytes % (Manual) 4, Eosinophils % (Manual) 2, Basophils % (Manual) 1, Band Neutrophils 3, Platelet Estimate NORMAL, Clumped Platelets MODERATE, Poikilocytosis MODERATE, Anisocytosis SLIGHT, [place] Cells MODERATE, Sodium Level 137, Potassium Level 4.2, Chloride Level 109H, Carbon Dioxide Level 13L, Anion Gap 15H, Blood Urea Nitrogen 31H, Creatinine 2.15H, Estimat Glomerular Filtration Rate 32, BUN/Creatinine Ratio 14, Glucose Level 62L, Calcium Level 8.2L, Corrected Calcium 9.1, Total Bilirubin 0.2, Aspartate Amino Transf (AST/SGOT) 93H, Alanine Aminotransferase (ALT/SGPT) 89H, Alkaline Phosphatase 110, Total Protein 5.7L, Albumin 2.9L 12/14/22 18:35: Prothrombin Time 14.6, INR Comment 1.1, Activated Partial Thromboplast Time 31, Lactic Acid Level 1.71 12/14/22 19:00: Glucometer 23*L 12/14/22 19:28: Total Creatine Kinase 38, Creatine Kinase MB 2.0 12/14/22 20:20: Glucometer 108 12/14/22 22:14: Glucometer 82 12/14/22 23:02: Glucometer 70 12/15/22 00:27: Glucometer 54*L 12/15/22 02:00: Glucometer 52*L 12/15/22 03:01: Glucometer 72 12/15/22 04:20: Glucometer 52*L 12/15/22 04:48: White Blood Count 8.2, Red Blood Count 2.68L, Hemoglobin 7.7L, Hematocrit 24L, Mean Corpuscular Volume 88, Mean Corpuscular Hemoglobin 29, Mean Corpuscular Hemoglobin Concent 33, Red Cell Distribution Width 14.6H, Platelet Count 336, Mean Platelet Volume 10.4, Immature Granulocyte % (Auto) 1, Neutrophils (%) (Auto) 81H, Lymphocytes (%) (Auto) 9L, Monocytes (%) (Auto) 6, Eosinophils (%) (Auto) 3, Basophils (%) (Auto) 0, Neutrophils # (Auto) 6.7, Lymphocytes # (Auto) 0.7L, Monocytes # (Auto) 0.5, Eosinophils # (Auto) 0.3, Basophils # (Auto) 0.0, Immature Granulocyte # (Auto) 0.1, Sodium Level 137, Potassium Level 3.9, Chloride Level 114H, Carbon Dioxide Level 13L, Anion Gap 10, Blood Urea Nitrogen 25H, Creatinine 1.70H, Estimat Glomerular Filtration Rate 43, BUN/Creatinine Ratio 15, Glucose Level 89, Calcium Level 7.3L, Corrected Calcium 8.6, Total Bilirubin 0.2, Aspartate Amino Transf (AST/SGOT) 58H, Alanine Aminotransferase (ALT/SGPT) 67H, Alkaline Phosphatase 90, Total Protein 4.7L, Albumin 2.4L 12/15/22 05:42: Glucometer 41*L 12/15/22 07:16: Glucometer 42*L 12/15/22 08:22: Glucometer 67L 12/15/22 09:30: Glucometer 101 12/15/22 10:19: Glucometer 92 12/15/22 11:30: Glucometer 78 12/15/22 12:42: Glucometer 111H 12/15/22 13:35: Glucometer 104 12/15/22 14:29: Glucometer 106 12/15/22 15:52: Glucometer 96 12/15/22 16:54: Glucometer 83 12/15/22 18:07: Glucometer 104 12/15/22 18:52: Glucometer 119H 12/15/22 19:40: Glucometer 122H 12/15/22 21:01: Glucometer 145H 12/15/22 23:24: Glucometer 153H 12/16/22 03:50: Glucometer 116H 12/16/22 04:28: White Blood Count 9.2, Red Blood Count 2.70L, Hemoglobin 7.6L, Hematocrit 24L, Mean Corpuscular Volume 88, Mean Corpuscular Hemoglobin 28, Mean Corpuscular Hemoglobin Concent 32, Red Cell Distribution Width 14.6H, Platelet Count 272, Mean Platelet Volume 9.5, Immature Granulocyte % (Auto) 1, Neutrophils (%) (Au to) 80H, Lymphocytes (%) (Auto) 9L, Monocytes (%) (Auto) 7, Eosinophils (%) (Auto) 3, Basophils (%) (Auto) 0, Neutrophils # (Auto) 7.4, Lymphocytes # (Auto) 0.9L, Monocytes # (Auto) 0.6, Eosinophils # (Auto) 0.3, Basophils # (Auto) 0.0, Immature Granulocyte # (Auto) 0.1, Sodium Level 136, Potassium Level 4.4, Chloride Level 115H, Carbon Dioxide Level 13L, Anion Gap 8, Blood Urea Nitrogen 17, Creatinine 1.32H, Estimat Glomerular Filtration Rate 58, BUN/Creatinine Ratio 13, Glucose Level 126H, Calcium Level 7.2L, Corrected Calcium 8.6, Total Bilirubin 0.2, Aspartate Amino Transf (AST/SGOT) 36H, Alanine Aminotransferase (ALT/SGPT) 52, Alkaline Phosphatase 95, Total Protein 4.7L, Albumin 2.3L 12/16/22 06:45: Venous Blood pH 7.34, Venous Blood Partial Pressure CO2 28L, Venous Blood HCO3 15L 12/16/22 08:28: Glucometer 151H 12/16/22 11:12: Glucometer 244H Microbiology 12/14/22 Blood Culture - Preliminary, Resulted No growth Pending Labs Microbiology Date/Time Source Procedure Growth Status 12/14/22 18:35 Peripheral Rt Ac Blood Culture - Preliminary No growth Resulted 12/14/22 17:55 Peripheral Rt Forearm Blood Culture - Preliminary No growth Resulted Laboratory Tests 12/14/22 17:35: Glucometer 69 12/14/22 17:45: White Blood Count 10.6, Red Blood Count 3.23, Hemoglobin 9.2, Hematocrit 28, Mean Corpuscular Volume 88, Mean Corpuscular Hemoglobin 29, Mean Corpuscular Hemoglobin Concent 32, Red Cell Distribution Width 14.4, Platelet Count 312, Mean Platelet Volume 9.8, Immature Granulocyte % (Auto) 1, Neutrophils (%) (Auto ) 87, Lymphocytes (%) (Auto) 5, Monocytes (%) (Auto) 6, Eosinophils (%) (Auto) 2, Basophils (%) (Auto) 0, Neutrophils # (Auto) 9.2, Lymphocytes # (Auto) 0.5, Monocytes # (Auto) 0.6, Eosinophils # (Auto) 0.2, Basophils # (Auto) 0.0, Immature Granulocyte # (Auto) 0.1, Neutrophils % (Manual) 83, Lymphocytes % (Manual) 7, Monocytes % (Manual) 4, Eosinophils % (Manual) 2, Basophils % (M anual) 1, Band Neutrophils 3, Platelet Estimate NORMAL, Clumped Platelets MODERATE, Poikilocytosis MODERATE, Anisocytosis SLIGHT, [place] Cells MODERATE, Sodium Level 137, Potassium Level 4.2, Chloride Level 109, Carbon Dioxide Level 13, Anion Gap 15, Blood Urea Nitrogen 31, Creatinine 2.15, Estimat Glomerular Filtration Rate 32, BUN/Creatinine Ratio 14, Glucose Level 62, Calcium Level 8.2, Corrected Calcium 9.1, Total Bilirubin 0.2, Aspartate Amino Transf (AST/SGOT) 93, Alanine Aminotransferase (ALT/SGPT) 89, Alkaline Phosphatase 110, Total Protein 5.7, Albumin 2.9 12/14/22 18:35: Prothrombin Time 14.6, INR Comment 1.1, Activated Partial Thromboplast Time 31, Lactic Acid Level 1.71 12/14/22 19:00: Glucometer 23 12/14/22 19:28: Total Creatine Kinase 38, Creatine Kinase MB 2.0 12/14/22 20:20: Glucometer 108 12/14/22 22:14: Glucometer 82 12/14/22 23:02: Glucometer 70 12/15/22 00:27: Glucometer 54 12/15/22 02:00: Glucometer 52 12/15/22 03:01: Glucometer 72 12/15/22 04:20: Glucometer 52 12/15/22 04:48: White Blood Count 8.2, Red Blood Count 2.68, Hemoglobin 7.7, Hematocrit 24, Mean Corpuscular Volume 88, Mean Corpuscular Hemoglobin 29, Mean Corpuscular Hemoglobin Concent 33, Red Cell Distribution Width 14.6, Platelet Count 336, Mean Platelet Volume 10.4, Immature Granulocyte % (Auto) 1, Neutrophils (%) (Auto) 81, Lymphocytes (%) (Auto) 9, Monocytes (%) (Auto) 6, Eosinophils (%) (Auto) 3, Basophils (%) (Auto) 0, Neutrophils # (Auto) 6.7, Lymphocytes # (Auto) 0.7, Monocytes # (Auto) 0.5, Eosinophils # (Auto) 0.3, Basophils # (Auto) 0.0, Immature Granulocyte # (Auto) 0.1, Sodium Level 137, Potassium Level 3.9, Chloride Level 114, Carbon Dioxide Level 13, Anion Gap 10, Blood Urea Nitrogen 25, Creatinine 1.70, Estimat Glomerular Filtration Rate 43, BUN/Creatinine Ratio 15, Glucose Level 89, Calcium Level 7.3, Corrected Calcium 8.6, Total Bilirubin 0.2, Aspartate Amino Transf (AST/SGOT) 58, Alanine Aminotransferase (ALT/SGPT) 67, Alkaline Phosphatase 90, Total Protein 4.7, Albumin 2.4 12/15/22 05:42: Glucometer 41 12/15/22 07:16: Glucometer 42 12/15/22 08:22: Glucometer 67 12/15/22 09:30: Glucometer 101 12/15/22 10:19: Glucometer 92 12/15/22 11:30: Glucometer 78 12/15/22 12:42: Glucometer 111 12/15/22 13:35: Glucometer 104 12/15/22 14:29: Glucometer 106 12/15/22 15:52: Glucometer 96 12/15/22 16:54: Glucometer 83 12/15/22 18:07: Glucometer 104 12/15/22 18:52: Glucometer 119 12/15/22 19:40: Glucometer 122 12/15/22 21:01: Glucometer 145 12/15/22 23:24: Glucometer 153 12/16/22 03:50: Glucometer 116 12/16/22 04:28: White Blood Count 9.2, Red Blood Count 2.70, Hemoglobin 7.6, Hematocrit 24, Mean Corpuscular Volume 88, Mean Corpuscular Hemoglobin 28, Mean Corpuscular Hemoglobin Concent 32, Red Cell Distribution Width 14.6, Platelet Count 272, Mean Platelet Volume 9.5, Immature Granulocyte % (Auto) 1, Neutrophils (%) (Auto) 80, Lymphocytes (%) (Auto) 9, Monocytes (%) (Auto) 7, Eosinophils (%) (Auto) 3, Basophils (%) (Auto) 0, Neutrophils # (Auto) 7.4, Lymphocytes # (Auto) 0.9, Monocytes # (Auto) 0.6, Eosinophils # (Auto) 0.3, Basophils # (Auto) 0.0, Immature Granulocyte # (Auto) 0.1, Sodium Level 136, Potassium Level 4.4, Chloride Level 115, Carbon Dioxide Level 13, Anion Gap 8, Blood Urea Nitrogen 17, Creatinine 1.32, Estimat Glomerular Filtration Rate 58, BUN/Creatinine Ratio 13, Glucose Level 126, Calcium Level 7.2, Corrected Calcium 8.6, Total Bilirubin 0.2, Aspartate Amino Transf (AST/SGOT) 36, Alanine Aminotransferase (ALT/SGPT) 52, Alkaline Phosphatase 95, Total Protein 4.7, Albumin 2.3 12/16/22 06:45: Venous Blood pH 7.34, Venous Blood Partial Pressure CO2 28, Venous Blood HCO3 15 12/16/22 08:28: Glucometer 151 12/16/22 11:12: Glucometer 244 Discharge Home Medications: Active Scripts Active Glyburide 1.25 Mg Tablet 1.25 Mg PO DAILY Reported Magnesium Oxide 400 Mg Magnesium Tablet 400 Mg PO 1200 Mupirocin 2 % Oint...g. 1 Applic TOP TID APPLY TO RIGHT EAR FILLED 12-11-2022 #1/ DAY SUPPLY Folic Acid 0.8 Mg Tablet 0.8 Mg PO DAILY Nitroglycerin 0.4 Mg Tab.subl 0.4 Mg SL UD PRN Bumetanide 1 Mg Tablet 1 Mg PO DAILY Pantoprazole Sodium 40 Mg Tablet.dr 40 Mg PO DAILY Clopidogrel (Clopidogrel Bisulfate) 75 Mg Tablet 75 Mg PO DAILY Aspirin EC (Aspirin) 81 Mg Tablet.dr 81 Mg PO HS Docusate Sodium 250 Mg Capsule 250 Mg PO BID Neurontin (Gabapentin) 300 Mg Capsule 300 Mg PO TID Flomax (Tamsulosin HCl) 0.4 Mg Cap 0.4 Mg PO 1800 K-Tab ER (Potassium Chloride) 10 Meq Tablet.er 10 Meq PO BID Cyanocobalamin Injection (Cyanocobalamin) 1,000 Mcg/Ml Inj 1,000 Mcg IM MONTHLY Cetirizine HCl 10 Mg Tablet 10 Mg PO DAILY Metoprolol Tartrate 100 Mg Tablet 100 Mg PO BID Montelukast Sodium 10 Mg Tablet 10 Mg PO HS Metformin HCl 1,000 Mg Tablet 1,000 Mg PO BID Atorvastatin Calcium 80 Mg Tablet 80 Mg PO HS Instructions to patient/family Please see electronic discharge instructions given to patient. Diagnosis/Problems Diagnosis/Problems (1) Hypoglycemia Status: Acute (2) Acute kidney injury (3) Dehydration KYRA WATSON DO December 16, 2022 12:04
--- NOTE | 2022-12-16 14:36 | Physical Therapy Daily Note ---
PT Daily Note-Current Subjective Patient sitting in chair upon PT arrival, agreeable to treatment. Patient rates pain at 0/10 currently. Pain Section J - Health Conditions 1. Rarely or not at all 2. Occasionally 3. Frequently 4. Almost constantly 8. Unable to answer Pain Effect on Sleep: 1 Pain Interference with Therapy: 1 Pain Interference w/Day-to-Day: 1 Mental Status Patient Orientation: Person, Place, Time, Situation Transfers SCALE: Activities may be completed with or without assistive devices. 7-Zpudzghpgq-yowvdtq completes the activity by him/herself with no assistance from a helper. 5-Set-up or Clean-up Assistance-helper sets up or cleans up; patient completes activity. [place] assists only prior to or following the activity. 4-Supervision or Touching Assistance-helper provides verbal cues and/or touching/steadying and/or contact guard assistance as patient completes activity. Assistance may be provided throughout the activity or intermittently. 3-Partial/Moderate Assistance-helper does LESS THAN HALF the effort. [place] lifts, holds or supports trunk or limbs, but provides less than half the effort. 2-Substantial/Maximal Assistance-helper does MORE THAN HALF the effort. [place] lifts or holds trunk or limbs and provides more than half the effort. 8-Xivmpxgku-jtsmcn does ALL the effort. Patient does none of the effort to complete the activity. Or, the assistance of 2 or more helpers is required for the patient to complete the activity. If activity was not attempted, code reason: 7-Patient Refused. 9-Not Applicable-not attempted and the patient did not perform the activity before the current illness, exacerbation or injury. 10-Not Attempted due to Environmental Limitations-(lack of equipment, weather restraints, etc.). 88-Not Attempted due to Medical Conditions or Safety Concerns. Sit to Stand (QC): 6 Chair/Djt-rt-Ylwhp Xfer(QC): 6 Weight Bearing Right Lower Extremity: Right Full Weight Bearing Left Lower Extremity: Left Full Weight Bearing Gait Training Does the Patient Walk?: Yes Distance: 300 feet Walk 10 feet (QC): 6 Walk 50 ft with 2 Turns(QC): 4 Walk 150 ft (QC): 4 Gait Assistive Device: FWW Assessment Current Status: Good Progress Patient tolerated treatment well. He demonstrates good overall performance of transfers and improved gait distance. Patient ambulates 300 feet with FWW, with SBA and verbal cues for progression. Patient in chair post treatment with in the room, all needs met, nursing notified, call light in reach. PT Mcc Goals Mcc Goals PT Mcc Goals Time Frame: January 04, 2023 Roll Left & Right (QC): 6 Sit to Lying (QC): 6 Lying-Sitting on Side/Bed(QC): 6 Sit to Stand (QC): 6 Chair/Hou-lz-Vdtuk Xfer(QC): 6 Toilet Transfer (QC): 6 Does the Patient Walk: Yes Walk 10 feet (QC): 6 Walk 50ft with 2 Turns (QC): 6 Walk 150 ft (QC): 6 1 Step (curb) (QC): 6 4 Steps (QC): 4 12 Steps (QC): 4 PT Plan Treatment/Plan Treatment Plan: Continue Plan of Care Treatment Plan: Bed Mobility, Education, Functional Activity Liyah, Functional Strength, Group Therapy, Gait, Safety, Therapeutic Exercise, Transfers Treatment Duration: January 04, 2023 Frequency: 6 times per week Estimated Hrs Per Day: .25 hour per day Patient and/or Family Agrees t: Yes Safety Risks/Education Patient Education: Gait Training, Transfer Techniques Teaching Recipient: Patient Teaching Methods: Demonstration, Discussion Response to Teaching: Verbalize Understanding, Return Demonstration Time Time In: 1045 Time Out: 1055 DATE: December 16, 2022 Total Billed Treatment Time: 10 Total Billed Treatment Visit, RAFFAELE Chambers PT December 16, 2022 14:36
[2022-12-16] MEDS ORDERED: TAMSULOSIN 0.4 MG (FLOMAX) CAP PO SCH (18:00)
[2022-12-20] MEDS ORDERED: SUCR1TAB36 PO (10:18)
== END 2022-12-16 13:20 | disposition home or self-care (01) | DRG 684 ==
LOC: EDUNIT# 17:26 → ER 17:26 → CSD 21:03
PROVIDERS: ADMIT Internal Medicine; ATTEND Internal Medicine
DX: N17.9 Acute kidney failure, unspecified (principal); E11.649 Type 2 diabetes mellitus with hypoglycemia without coma; T38.3X5A Adverse effect of insulin and oral hypoglycemic [antidiabetic] drugs, initial encounter; E86.0 Dehydration; R19.7 Diarrhea, unspecified; F17.210 Nicotine dependence, cigarettes, uncomplicated; Z95.5 Presence of coronary angioplasty implant and graft; I25.10 Atherosclerotic heart disease of native coronary artery without angina pectoris; I25.2 Old myocardial infarction; E78.00 Pure hypercholesterolemia, unspecified; I10 Essential (primary) hypertension; G89.29 Other chronic pain; M54.9 Dorsalgia, unspecified; Z85.72 Personal history of non-Hodgkin lymphomas; Z92.21 Personal history of antineoplastic chemotherapy; Z79.82 Long term (current) use of aspirin; Z79.84 Long term (current) use of oral hypoglycemic drugs; Z79.899 Other long term (current) drug therapy
CPT/HCPCS: 36415; 70450; 71045; 80053; 82550; 82553; 82805; 82947; 83605; 85007; 85025; 85027; 85610; 85730; 87040

== ENCOUNTER 2022-12-20 08:55 | Day surgery (SDC) | payer MEDICARE, OTHER ==
[~2022-12-20] VITALS: Ht 168.9 cm; Wt 86.5 kg
[~2022-12-20 08:55] MED LIST changes: +FOLI0.8T4 PO; +GLYB1.253 PO; +LOSA50TA63 PO; +MAGN400T50 PO; +MUPI22OI2 TOP
[2022-12-20] MEDS ORDERED: LACTATED RINGERS 1,000 ML IV STA (09:00)
[2022-12-20] MEDS ORDERED: HURRICAINE EXT TUBE (BENZOCAINE) XX PRN (09:00)
[2022-12-20] MEDS ORDERED: HURRICAINE EXT TUBE (BENZOCAINE) ONE (09:29)
[2022-12-20] MEDS ORDERED: LACTATED RINGERS 1,000 ML IV ONE (09:29)
[2022-12-20 09:30] VITALS: BP 115/68
[2022-12-20] MEDS ORDERED: PROPOFOL INJECTION 50 ML IV ONE (10:00)
[2022-12-20] MEDS ORDERED: SUCR1TAB36 PO (10:18)
--- NOTE | 2022-12-20 10:18 | Discharge Inst-Simple/Standard ---
Discharge Inst-Standard Discharge Medications New, Converted or Re-Newed RX: Transmitted to Pharmacy Patient Instructions/Follow Up Plan of Care/Instructions/FU: 2 weeks James Activity as Tolerated: Yes Discharge Diet: Regular Diet KATIA DAVIES DO December 20, 2022 10:18
[2022-12-20 10:20] VITALS: BP 94/50
--- NOTE | 2022-12-20 10:20 | Progress Note-Post Operative ---
Post-Operative Progess Note Surgeon (s)/Car Pilot (s) Surgeon KATIA DAVIES DO Car Pilot: na Pre-Operative Diagnosis hx ulcer, iron def anemia Post-Operative Diagnosis gastritis, hiatal hernia Procedure & Operative Findings Date of Procedure 12/20/22 Procedure Performed/Findings egd c biopsy Anesthesia Type per ironing worker Estimated Blood Loss Estimated blood loss (mL): none Specimens/Packing Specimens Removed antrum KATIA DAVIES DO December 20, 2022 10:20
[2022-12-20 10:25] VITALS: BP 109/53
[2022-12-20 10:47] VITALS: BP 109/53
--- NOTE | 2022-12-20 12:02 | Anesthesia-General Post-Op ---
MAC Patient Condition Mental Status/LOC: Same as Preop Cardiovascular: Satisfactory Nausea/Vomiting: Absent Respiratory: Satisfactory Pain: Controlled Complications: Absent Post Op Complications Complications None Follow Up Care/Instructions Patient Instructions None needed. Anesthesiology Discharge Order Discharge Order Patient is doing well, no complaints, stable vital signs, no apparent adverse anesthesia problems. No complications reported per nursing. ROSEMARY PENA CRNA December 20, 2022 12:02
--- NOTE | 2022-12-20 18:51 | OPERATIVE REPORT ---
DATE OF SERVICE: 12/20/2022 PREOPERATIVE DIAGNOSES: History of gastric ulcer, iron deficiency anemia. POSTOPERATIVE DIAGNOSES: Hiatal hernia, gastritis. PROCEDURE: EGD with biopsy. SURGEON: Katia Ramirez DO ANESTHESIA: Per ARCHIVES SPECIALIST. ESTIMATED BLOOD LOSS: None. COMPLICATIONS: None. INDICATIONS: The patient is a 72-year-old male with a history of gastric ulcer and iron deficiency anemia. He understands risks and benefits of procedure and wishes to proceed. Consent was signed in chart. DESCRIPTION OF PROCEDURE: The patient was taken to endoscopy suite, placed in left lateral recumbent position. Timeout was performed. Scope was inserted in the mouth, down the esophagus, stomach, into the duodenum without difficulty. The duodenum had no polyps, masses or ulcerations. Scope was slowly retracted back into stomach where it was further insufflated. The antrum had some gastritis appearance. Biopsy was obtained. Scope was retroflexed noting a hiatal hernia, no other pathology noted. Scope was returned to its normal position, slowly withdrawn until distal esophagus. No polyps, masses or ulcerations. Scope was slowly retracted back until completely removed. The patient tolerated the procedure well, no complications, taken to recovery room in stable condition. RECOMMENDATIONS: The patient will follow up in 2 weeks to discuss pathology results. Further recommendation pending those biopsies. Job ID: [id number] DocumentID: [id number] Dictated Date: 12/20/2022 10:16:27 After School Program Teacher Date: 12/20/2022 18:51:00 Dictated By: KATIA RAMIREZ DO
== END 2022-12-20 11:05 | disposition home or self-care (01) ==
LOC: ENDO 08:55
PROVIDERS: ATTEND Surgery
DX: K29.50 Unspecified chronic gastritis without bleeding (principal); B96.81 Helicobacter pylori [H. pylori] as the cause of diseases classified elsewhere; K44.9 Diaphragmatic hernia without obstruction or gangrene; D50.9 Iron deficiency anemia, unspecified; J44.9 Chronic obstructive pulmonary disease, unspecified; E66.9 Obesity, unspecified; F17.210 Nicotine dependence, cigarettes, uncomplicated; Z87.11 Personal history of peptic ulcer disease; Z99.81 Dependence on supplemental oxygen